=== PATIENT | female | born 1955 | race Caucasian/White ===

== ENCOUNTER 2017-06-09 14:40 | Observation (INO) | payer MEDICARE, OTHER ==
[2017-06-09] MEDS ORDERED: SODIUM CHLORIDE 0.9% 500 ML IV ONE (15:32)
--- NOTE | 2017-06-09 15:50 | ED ---
General Adult HPI - General Chief complaint: Weakness Stated complaint: SOB/Dizzy Time Seen by Provider: 06/09/17 14:45 Source: patient, RN notes reviewed Mode of arrival: wheelchair Limitations: no limitations - History of Present Illness Initial comments: This is a 62-year-old female presents emergency Department with a past medical history significant for anemia. Patient states she believes she is anemic again because she has a same symptom she normally gets. Patient states she's had this for many many years. Patient states her last transfusion was in March. Patient states she is certain dreaming fatigued and she has shortness of breath anytime she exerts herself. Patient states she's been sleeping over 20 hours a day for the last week. Patient states she also has generalized body aches. Patient denies any fever chills or cough per patient denies any chest pain. Patient denies shortness of breath at rest. Patient denies any abdominal pain patient denies nausea vomiting or diarrhea. Patient denies headache patient denies lightheadedness patient denies dizziness. Patient denies any black or bloody stools. Patient states she's never in the past been found to be bleeding when she's been anemic. - Related Data Home Medications Medication Instructions Recorded Confirmed Albuterol Inhaler [Ventolin Hfa 1 - 2 puff INHALATION Q6HR PRN 06/09/17 06/09/17 Inhaler] Cholecalciferol [Vitamin D3] 1,000 unit PO DAILY 06/09/17 06/09/17 DULoxetine HCL [Cymbalta] 60 mg PO DAILY 06/09/17 06/09/17 Fluticasone/Salmeterol [Advair 1 inhalation PO BID 06/09/17 06/09/17 250-50 Diskus] Levothyroxine Sodium [Synthroid] 150 mcg PO DAILY 06/09/17 06/09/17 Omeprazole [PriLOSEC] 20 mg PO AC-BRKFST 06/09/17 06/09/17 Pregabalin [Lyrica] 75 mg PO BID 06/09/17 06/09/17 Topiramate [Topamax] 50 mg PO DAILY 06/09/17 06/09/17 predniSONE 10 mg PO DIRECTED 06/09/17 06/09/17 Allergies Allergy/AdvReac Type Severity Reaction Status Date / Time No Known Allergies Allergy Verified 06/09/17 15:49 Review of Systems ROS Statement: Those systems with pertinent positive or pertinent negative responses have been documented in the HPI. ROS Other: All systems not noted in ROS Statement are negative. Past Medical History Past Medical History: COPD, Thyroid Disorder Additional Past Medical History / Comment(s): anemia History of Any Multi-Drug Resistant Organisms: None Reported Past Surgical History: Appendectomy, Hysterectomy, Tonsillectomy Past Psychological History: Bipolar, PTSD Smoking Status: Former smoker Past Alcohol Use History: None Reported Past Drug Use History: None Reported General Exam - General Exam Comments Initial Comments: GENERAL: Patient is well-developed and well-nourished. Patient is nontoxic and well- hydrated and is in no acute distress. ENT: Neck is soft and supple. No significant lymphadenopathy is noted. Oropharynx is clear. Moist mucous membranes. Neck has full range of motion without eliciting any pain. EYES: The sclera were anicteric and conjunctiva were pink and moist. Extraocular movements were intact and pupils were equal round and reactive to light. Eyelids were unremarkable. PULMONARY: Unlabored respirations. Good breath sounds bilaterally. No audible rales rhonchi or wheezing was noted. CARDIOVASCULAR: There is a regular rate and rhythm without any murmurs gallops or rubs. ABDOMEN: Soft and nontender with normal bowel sounds. No palpable organomegaly was noted. There is no palpable pulsatile mass. SKIN: Skin is pale NEUROLOGIC: Patient is alert and oriented x3. Cranial nerves II through XII are grossly intact. Motor and sensory are also intact. Normal speech, volume and content. Symmetrical smile. MUSCULOSKELETAL: Normal extremities with adequate strength and full range of motion. LYMPHATICS: No significant lymphadenopathy is noted PSYCHIATRIC: Normal psychiatric evaluation. Limitations: no limitations Course Vital Signs 06/09/17 06/09/17 14:51 15:57 Temperature 98.7 F Pulse Rate 114 H 84 Respiratory 18 18 Rate Blood Pressure 110/76 117/62 O2 Sat by Pulse 98 96 Oximetry Medical Decision Making - Medical Decision Making EKG shows normal sinus rhythm at 85 bpm MS interval 130 QRS is 84 Q-T intervals 342 QTC is 46 per patient's EKG shows no ST segment elevation or depression or T wave abnormalities are noted. - Lab Data Result diagrams: 06/09/17 15:30 06/09/17 15:30 Lab Results 0206/09/17 06/09/17 Range/Units 15:30 15:30 15:30 WBC 9.8 (3.8-10.6) k/uL RBC 3.90 (3.80-5.40) m/uL Hgb 9.6 L (11.4-16.0) gm/dL Hct 31.5 L (34.0-46.0) % MCV 80.7 (80.0-100.0) fL MCH 24.5 L (25.0-35.0) pg MCHC 30.4 L (31.0-37.0) g/dL RDW 18.2 H (11.5-15.5) % Plt Count 273 (150-450) k/uL Neutrophils % 77 % Lymphocytes % 14 % Monocytes % 5 % Eosinophils % 2 % Basophils % 0 % Neutrophils # 7.6 (1.3-7.7) k/uL Lymphocytes # 1.4 (1.0-4.8) k/uL Monocytes # 0.4 (0-1.0) k/uL Eosinophils # 0.2 (0-0.7) k/uL Basophils # 0.0 (0-0.2) k/uL Hypochromasia Marked Anisocytosis Slight Microcytosis Slight PT (9.0-12.0) sec INR (<1.2) APTT (22.0-30.0) sec Sodium (137-145) mmol/L Potassium (3.5-5.1) mmol/L Chloride (98-107) mmol/L Carbon Dioxide (22-30) mmol/L Anion Gap mmol/L BUN (7-17) mg/dL Creatinine (0.52-1.04) mg/dL Est GFR (MDRD) Af Amer (>60 ml/min/1.73 sqM) Est GFR (MDRD) Non-Af (>60 ml/min/1.73 sqM) Glucose (74-99) mg/dL Plasma Lactic Acid Parth (0.7-2.0) mmol/L Calcium (8.4-10.2) mg/dL Magnesium (1.6-2.3) mg/dL Total Bilirubin (0.2-1.3) mg/dL AST (14-36) U/L ALT (9-52) U/L Alkaline Phosphatase (38-126) U/L Total Creatine Kinase <20 L (30-135) U/L CK-MB (CK-2) <0.2 (0.0-2.4) ng/mL CK-MB (CK-2) Rel Index Troponin I <0.012 (0.000-0.034) ng/mL Total Protein (6.3-8.2) g/dL Albumin (3.5-5.0) g/dL Urine Color Urine Appearance (Clear) Urine pH (5.0-8.0) Ur Specific [place] (1.001-1.035) Urine Protein (Negative) Urine Glucose (UA) (Negative) Urine Ketones (Negative) Urine Blood (Negative) Urine Nitrite (Negative) Urine Bilirubin (Negative) Urine Urobilinogen (<2.0) mg/dL Ur Leukocyte Esterase (Negative) Blood Type A Positive Blood Type Recheck CABO Indicated Antibody Screen NEGATIVE Spec Expiration Date 06/12/2017 - 232906/09/17 06/09/17 06/09/17 Range/Units 15:30 15:30 15:30 WBC (3.8-10.6) k/uL RBC (3.80-5.40) m/uL Hgb (11.4-16.0) gm/dL Hct (34.0-46.0) % MCV (80.0-100.0) fL MCH (25.0-35.0) pg MCHC (31.0-37.0) g/dL RDW (11.5-15.5) % Plt Count (150-450) k/uL Neutrophils % % Lymphocytes % % Monocytes % % Eosinophils % % Basophils % % Neutrophils # (1.3-7.7) k/uL Lymphocytes # (1.0-4.8) k/uL Monocytes # (0-1.0) k/uL Eosinophils # (0-0.7) k/uL Basophils # (0-0.2) k/uL Hypochromasia Anisocytosis Microcytosis PT 9.5 (9.0-12.0) sec INR 1.0 (<1.2) APTT 23.6 (22.0-30.0) sec Sodium 139 (137-145) mmol/L Potassium 4.2 (3.5-5.1) mmol/L Chloride 107 (98-107) mmol/L Carbon Dioxide 19 L (22-30) mmol/L Anion Gap 13 mmol/L BUN 22 H (7-17) mg/dL Creatinine 0.75 (0.52-1.04) mg/dL Est GFR (MDRD) Af Amer >60 (>60 ml/min/1.73 sqM) Est GFR (MDRD) Non-Af >60 (>60 ml/min/1.73 sqM) Glucose 107 H (74-99) mg/dL Plasma Lactic Acid Parth 2.1 H* (0.7-2.0) mmol/L Calcium 9.3 (8.4-10.2) mg/dL Magnesium 2.0 (1.6-2.3) mg/dL Total Bilirubin 0.3 (0.2-1.3) mg/dL AST 23 (14-36) U/L ALT 32 (9-52) U/L Alkaline Phosphatase 113 (38-126) U/L Total Creatine Kinase (30-135) U/L CK-MB (CK-2) (0.0-2.4) ng/mL CK-MB (CK-2) Rel Index Troponin I (0.000-0.034) ng/mL Total Protein 7.1 (6.3-8.2) g/dL Albumin 3.9 (3.5-5.0) g/dL Urine Color Urine Appearance (Clear) Urine pH (5.0-8.0) Ur Specific [place] (1.001-1.035) Urine Protein (Negative) Urine Glucose (UA) (Negative) Urine Ketones (Negative) Urine Blood (Negative) Urine Nitrite (Negative) Urine Bilirubin (Negative) Urine Urobilinogen (<2.0) mg/dL Ur Leukocyte Esterase (Negative) Blood Type Blood Type Recheck Antibody Screen Spec Expiration Date 06/09/17 Range/Units 15:30 WBC (3.8-10.6) k/uL RBC (3.80-5.40) m/uL Hgb (11.4-16.0) gm/dL Hct (34.0-46.0) % MCV (80.0-100.0) fL MCH (25.0-35.0) pg MCHC (31.0-37.0) g/dL RDW (11.5-15.5) % Plt Count (150-450) k/uL Neutrophils % % Lymphocytes % % Monocytes % % Eosinophils % % Basophils % % Neutrophils # (1.3-7.7) k/uL Lymphocytes # (1.0-4.8) k/uL Monocytes # (0-1.0) k/uL Eosinophils # (0-0.7) k/uL Basophils # (0-0.2) k/uL Hypochromasia Anisocytosis Microcytosis PT (9.0-12.0) sec INR (<1.2) APTT (22.0-30.0) sec Sodium (137-145) mmol/L Potassium (3.5-5.1) mmol/L Chloride (98-107) mmol/L Carbon Dioxide (22-30) mmol/L Anion Gap mmol/L BUN (7-17) mg/dL Creatinine (0.52-1.04) mg/dL Est GFR (MDRD) Af Amer (>60 ml/min/1.73 sqM) Est GFR (MDRD) Non-Af (>60 ml/min/1.73 sqM) Glucose (74-99) mg/dL Plasma Lactic Acid Parth (0.7-2.0) mmol/L Calcium (8.4-10.2) mg/dL Magnesium (1.6-2.3) mg/dL Total Bilirubin (0.2-1.3) mg/dL AST (14-36) U/L ALT (9-52) U/L Alkaline Phosphatase (38-126) U/L Total Creatine Kinase (30-135) U/L CK-MB (CK-2) (0.0-2.4) ng/mL CK-MB (CK-2) Rel Index Troponin I (0.000-0.034) ng/mL Total Protein (6.3-8.2) g/dL Albumin (3.5-5.0) g/dL Urine Color Yellow Urine Appearance Clear (Clear) Urine pH 5.5 (5.0-8.0) Ur Specific [place] 1.017 (1.001-1.035) Urine Protein Negative (Negative) Urine Glucose (UA) Negative (Negative) Urine Ketones Negative (Negative) Urine Blood Negative (Negative) Urine Nitrite Negative (Negative) Urine Bilirubin Negative (Negative) Urine Urobilinogen <2.0 (<2.0) mg/dL Ur Leukocyte Esterase Negative (Negative) Blood Type Blood Type Recheck Antibody Screen Spec Expiration Date Disposition Clinical Impression: Fatigue, Anemia Disposition: ADMITTED IP TO THIS HOSP Referrals: Timothy Fountain MD [Primary Care Provider] - 1-2 days Time of Disposition: 17:04
[2017-06-09 16:00] LABS: Appearance,Urine Clear (Clear); Bilirubin,Urine Negative (Negative); Blood,Urine Negative (Negative); Color,Urine Yellow; Glucose,Urine (UA) Negative (Negative); Ketones,Urine Negative (Negative); Leukocyte Esterase,Urine Negative (Negative); PH, Urine 5.5 (5.0-8.0); Protein,Urine Negative (Negative); Specific Gravity,Urine 1.017 (1.001-1.035); Urobilinogen,Urine <2.0 mg/dL (<2.0)
[2017-06-09 16:02] LABS: Anisocytosis Slight; Basophils % (A) 0 %; Eosinophils # (A) 0.2 k/uL (0-0.7); Eosinophils % (A) 2 %; HCT 31.5 % (34.0-46.0); HGB 9.6 gm/dL (11.4-16.0); Hypochromasia Marked; Lymphocytes # (A) 1.4 k/uL (1.0-4.8); Lymphocytes % (A) 14 %; MCH 24.5 pg (25.0-35.0); MCHC 30.4 g/dL (31.0-37.0); MCV 80.7 fL (80.0-100.0); Mean Platelet Volume 7.4; Microcytosis Slight; Monocytes # (A) 0.4 k/uL (0-1.0); Monocytes % (A) 5 %; Neutrophils # (A) 7.6 k/uL (1.3-7.7); Neutrophils % (A) 77 %; Platelet Count 273 k/uL (150-450); RDW 18.2 % (11.5-15.5); WBC 9.8 k/uL (3.8-10.6)
[2017-06-09 16:10] LABS: Partial Thromboplastin Time 23.6 sec (22.0-30.0); Prothrombin Time 9.5 sec (9.0-12.0)
[2017-06-09 16:12] LABS: ALT 32 U/L (9-52); AST 23 U/L (14-36); Albumin 3.9 g/dL (3.5-5.0); Alkaline Phosphatase 113 U/L (38-126); Anion Gap 13 mmol/L; Blood Urea Nitrogen 22 mg/dL (7-17); Calcium 9.3 mg/dL (8.4-10.2); Carbon Dioxide 19 mmol/L (22-30); Chloride 107 mmol/L (98-107); Glucose 107 mg/dL (74-99); Potassium 4.2 mmol/L (3.5-5.1); Sodium 139 mmol/L (137-145); Total Bilirubin 0.3 mg/dL (0.2-1.3); Total Protein 7.1 g/dL (6.3-8.2)
--- NOTE | 2017-06-09 16:13 | XR ---
EXAMINATION TYPE: XR chest 2V DATE OF EXAM: 06/09/2017 COMPARISON: NONE HISTORY: Weakness and shortness of breath. TECHNIQUE: Frontal and lateral views of the chest are obtained. FINDINGS: There is chronic parenchymal change without suspicious focal air space opacity, pleural ef fusion, or pneumothorax seen. The cardiac silhouette size is upper limits of normal. Retrocardiac o pacity could reflect hiatal hernia. The osseous structures are demineralized. IMPRESSION: Chronic changes without acute pulmonary process.
[2017-06-09 16:18] LABS: Creatine Kinase <20 U/L (30-135)
[2017-06-09 16:31] LABS: Creatine Kinase MB <0.2 ng/mL (0.0-2.4); Troponin I <0.012 ng/mL (0.000-0.034)
[2017-06-09] MEDS ORDERED: SODIUM CHLORIDE 0.9% 1,000 ML IV ONE (17:05)
[2017-06-09] MEDS ORDERED: INFLUENZA VACCINE (6 MOS+) 60 MCG/0.5 ML SYRINGE IM ONE (21:36)
[2017-06-09] MEDS ORDERED: PNEUMOCOCCAL VACC-PNEUMOVAX 23 25 MCG/0.5 ML VIAL IM ONE (21:37)
[2017-06-09] MEDS: PANTOPRAZOLE 40 MG TABLET PO SCH (22:43)
[2017-06-09] MEDS: DULoxetine HCL 60 MG CAPSULE.DR PO SCH (22:43)
[2017-06-09] MEDS: ACETAMINOPHEN TAB 325 MG TAB PO PRN (22:44)
[2017-06-10 02:11] LABS: T4, Free (Free Thyroxine) 1.61 ng/dL (0.78-2.19)
[2017-06-10] MEDS: LEVOTHYROXINE 75 MCG TAB PO SCH (06:38)
[2017-06-10] MEDS: ACETAMINOPHEN TAB 325 MG TAB PO PRN ×2 (06:40→20:01)
[2017-06-10] MEDS: CHOLECALCIFEROL 1,000 UNIT TAB PO SCH (10:14)
[2017-06-10] MEDS: TOPIRAMATE 25 MG TAB PO SCH (10:14)
[2017-06-10] MEDS: PANTOPRAZOLE 40 MG TABLET PO SCH (10:14)
[2017-06-10] MEDS: PREGABALIN 75 MG CAP PO SCH ×2 (10:17→20:00)
--- NOTE | 2017-06-10 13:53 | P.GSCN ---
<Valentine Romero - Last Filed: 06/10/17 13:48> History of Present Illness Consult date: 06/10/17 History of present illness: A 62-year-old being seen by surgical service at the request of the attending for a surgical eval for possible GI bleed with anemia patient presented to the emergency room to be evaluated for persistent generalized weakness , fatigue shortness of breath onset for the past several weeks. Patient states that she was told she had anemia in March around presented to [facility] to be evaluated for the above symptoms. Patient stated her hemoglobin at that time was 6 was given a blood transfusion and discharged home with the plan the patient would need a colonoscopy in the outpatient setting patient states she is new to the area has moved here from [place] Patient states that she did have an EGD in [place] was told there were no acute findings. States that she has never had a colonoscopy. Denies any nausea vomiting denies any diarrhea or blood in stool. States her last bowel movement was yesterday and it was normal. States her chief complaint is her increased fatigue and inability to participate in ADLs due to the generalized body aches with fatigue.. Hemoglobin on admission was 9.6.. Patient also denies any unintentional weight loss. Patient states she normally walks 3-4 miles 3 times a week but over the last several weeks has not been able to do so due to fatigue decreased endurance and increased fatigue. Patient does have a past months ago history for bipolar, hypothyroid anemia, posttraumatic stress disorder. Past surgical history, appendectomy, hysterectomy, tonsillectomy Review of Systems Essentially unremarkable except as mentioned in the present illness Past Medical History Past Medical History: COPD, GERD/Reflux, Pneumonia, Thyroid Disorder Additional Past Medical History / Comment(s): 06/09/17-pt stated sleeping 18-20 hours per day for a week, sob when up, low grade fever at night, cardenas, general aches. other pmh:anemia, "was tesed for factor 5 d/t family hx- was neg", occ vertigo, blind rt eye since childhood, lt eye macular pucker.hiatal hernia, bipolar, ptsd. History of Any Multi-Drug Resistant Organisms: None Reported Past Surgical History: Appendectomy, Section, Hysterectomy, Tonsillectomy Additional Past Surgical History / Comment(s): rt radial nerve release, egd Past Anesthesia/Blood Transfusion Reactions: No Reported Reaction Smoking Status: Former smoker - Past Family History Mother Additional Family Medical History / Comment(s): at age 42 from blood clot. hx factor 5 Father Family Medical History: Congestive Heart Failure (CHF), CVA/TIA Brother(s) Additional Family Medical History / Comment(s): 3 brothers had factor 5 2 from strokes Medications and Allergies Home Medications Medication Instructions Recorded Confirmed Type Albuterol Inhaler [Ventolin Hfa 1 - 2 puff INHALATION Q6HR PRN 06/09/17 History Inhaler] Cholecalciferol [Vitamin D3] 1,000 unit PO DAILY 06/09/17 06/09/17 History DULoxetine HCL [Cymbalta] 60 mg PO DAILY 06/09/17 06/09/17 History Fluticasone/Salmeterol [Advair 1 inhalation PO BID 06/09/17 06/09/17 History 250-50 Diskus] Levothyroxine Sodium [Synthroid] 150 mcg PO DAILY 06/09/17 06/09/17 History Omeprazole [PriLOSEC] 20 mg PO AC-BRKFST 06/09/17 06/09/17 History Pregabalin [Lyrica] 75 mg PO BID 06/09/17 06/09/17 History Topiramate [Topamax] 50 mg PO DAILY 06/09/17 06/09/17 History predniSONE 10 mg PO DIRECTED 06/09/17 06/09/17 History Allergies Allergy/AdvReac Type Severity Reaction Status Date / Time No Known Allergies Allergy Verified 06/09/17 15:49 Surgical - Exam Vital Signs Temp Pulse Resp BP Pulse Ox 98.7 F 114 H 18 110/76 98 06/09/17 14:51 06/09/17 14:51 06/09/17 14:51 06/09/17 14:51 06/09/17 14:51 GENERAL APPEARANCE: 62-year-old female patient is alert, oriented x3, in no acute distress. VITAL SIGNS: Reviewed reviewed HEENT: Head is normocephalic and atraumatic.. The nares are patent. Oropharynx is clear without lesions. Blind in the right eye NECK: Supple without lymphadenopathy. Traches midline. HEART: S1, S2. Regular rate and rhythm. No murmur noted LUNGS: No crackles or wheezes are heard. Adequate air movement bilaterally ABDOMEN: Soft, nontender, nondistended with good bowel sounds. No peritoneal signs. No palpable organomegaly or masses. States no stool no reports the nausea vomiting EXTREMITIES: Normal skin color and turgor. No cyanosis, rash, ulceration, clubbing or edema. Radial pedal pulses are 2/4 bilaterally. NEUROLOGICAL: No focal deficits. Strength and sensation are grossly intact. Results - Labs 06/09/17 15:30 06/09/17 15:30 Abnormal Lab Results - Last 24 Hours (Table) 06/09/17 06/09/17 06/09/17 Range/Units 15:30 15:30 15:30 Hgb 9.6 L (11.4-16.0) gm/dL Hct 31.5 L (34.0-46.0) % MCH 24.5 L (25.0-35.0) pg MCHC 30.4 L (31.0-37.0) g/dL RDW 18.2 H (11.5-15.5) % Carbon Dioxide 19 L (22-30) mmol/L BUN 22 H (7-17) mg/dL Glucose 107 H (74-99) mg/dL Plasma Lactic Acid Parth (0.7-2.0) mmol/L Total Creatine Kinase <20 L (30-135) U/L TSH (0.465-4.680) mIU/L 06/09/17 06/09/17 Range/Units 15:30 15:30 Hgb (11.4-16.0) gm/dL Hct (34.0-46.0) % MCH (25.0-35.0) pg MCHC (31.0-37.0) g/dL RDW (11.5-15.5) % Carbon Dioxide (22-30) mmol/L BUN (7-17) mg/dL Glucose (74-99) mg/dL Plasma Lactic Acid Parth 2.1 H* (0.7-2.0) mmol/L Total Creatine Kinase (30-135) U/L TSH 0.406 L (0.465-4.680) mIU/L Diabetes panel 06/09/17 Range/Units 15:30 Sodium 139 (137-145) mmol/L Potassium 4.2 (3.5-5.1) mmol/L Chloride 107 (98-107) mmol/L Carbon Dioxide 19 L (22-30) mmol/L BUN 22 H (7-17) mg/dL Creatinine 0.75 (0.52-1.04) mg/dL Glucose 107 H (74-99) mg/dL Calcium 9.3 (8.4-10.2) mg/dL AST 23 (14-36) U/L ALT 32 (9-52) U/L Alkaline Phosphatase 113 (38-126) U/L Total Protein 7.1 (6.3-8.2) g/dL Albumin 3.9 (3.5-5.0) g/dL Thyroid panel 06/09/17 Range/Units 15:30 TSH 0.406 L (0.465-4.680) mIU/L Calcium panel 06/09/17 Range/Units 15:30 Calcium 9.3 (8.4-10.2) mg/dL Albumin 3.9 (3.5-5.0) g/dL Pituitary panel 06/09/17 06/09/17 Range/Units 15:30 15:30 Sodium 139 (137-145) mmol/L Potassium 4.2 (3.5-5.1) mmol/L Chloride 107 (98-107) mmol/L Carbon Dioxide 19 L (22-30) mmol/L BUN 22 H (7-17) mg/dL Creatinine 0.75 (0.52-1.04) mg/dL Glucose 107 H (74-99) mg/dL Calcium 9.3 (8.4-10.2) mg/dL TSH 0.406 L (0.465-4.680) mIU/L Adrenal panel 06/09/17 Range/Units 15:30 Sodium 139 (137-145) mmol/L Potassium 4.2 (3.5-5.1) mmol/L Chloride 107 (98-107) mmol/L Carbon Dioxide 19 L (22-30) mmol/L BUN 22 H (7-17) mg/dL Creatinine 0.75 (0.52-1.04) mg/dL Glucose 107 H (74-99) mg/dL Calcium 9.3 (8.4-10.2) mg/dL Total Bilirubin 0.3 (0.2-1.3) mg/dL AST 23 (14-36) U/L ALT 32 (9-52) U/L Alkaline Phosphatase 113 (38-126) U/L Total Protein 7.1 (6.3-8.2) g/dL Albumin 3.9 (3.5-5.0) g/dL Assessment and Plan Assessment: Impression Present on admission fatigue deconditioned likely due to significant anemia hemoglobin 9.6 History of chronic anemia Bipolar disorder Hypothyroid on supplements with a low TSH with a normal free T4 Episode of symptomatic anemia with 1 unit of packed red blood cells in March 2017 COPD with no evidence of an acute exacerbation Plan Clear liquid diet Repeat labs in the morning Would benefit from a colonoscopy timing to be determined No evidence of an acute surgical abdomen at this time Further surgical recommendations pending will follow with you Surgical consultation dictated for dr larson The above impression and plan of care have been discussed and directed by signing physician. Valentine Romero nurse practitioner acting as scribe for signing physician. <Sheila Virgen - Last Filed: 06/10/17 16:38> Surgical - Exam Osteopathic Statement: *. No significant issues noted on an osteopathic structural exam other than those noted in the History and Physical/Consult. Vital Signs Temp Pulse Resp BP Pulse Ox 98.7 F 114 H 18 110/76 98 06/09/17 14:51 06/09/17 14:51 06/09/17 14:51 06/09/17 14:51 06/09/17 14:51 Results - Labs 06/09/17 15:30 06/09/17 15:30 Abnormal Lab Results - Last 24 Hours (Table) 06/09/17 06/09/17 Range/Units 15:30 15:30 Plasma Lactic Acid Parth 2.1 H* (0.7-2.0) mmol/L TSH 0.406 L (0.465-4.680) mIU/L Thyroid panel 06/09/17 Range/Units 15:30 TSH 0.406 L (0.465-4.680) mIU/L Pituitary panel 06/09/17 Range/Units 15:30 TSH 0.406 L (0.465-4.680) mIU/L Assessment and Plan Assessment: Agree with the above plan. Discussed the case with Dr. Mcdonald and due to the patient's history of poor compliance and continued anemia, we will plan for colonoscopy during this admission. We will begin a colonoscopy prep today with a continued clear liquid diet. She will be nothing by mouth after midnight and colonoscopy will be performed.
--- NOTE | 2017-06-10 15:31 | P.HPIM ---
History of Present Illness H&P Date: 06/10/17 Chief Complaint: Generalized weakness and fatigue This is a 62-year-old female who presented to the emergency department complaining of fatigue and shortness of breath. She was also complaining of generalized weakness. The patient states she has been very sleepy over the last week. She has had body aches and pain. She denies fevers and chills. She denies cough, sputum production, chest pain. The patient states she has had this in the past and it is usually because she is anemic. The patient apparently has a history of anemia in the past. She states that she was transfused March. She did not follow up for a colonoscopy that she was supposed to have. She states that she had issues getting a ride to the hospital. Review of Systems All systems: negative Past Medical History Past Medical History: COPD, GERD/Reflux, Pneumonia, Thyroid Disorder Additional Past Medical History / Comment(s): 06/09/17-pt stated sleeping 18-20 hours per day for a week, sob when up, low grade fever at night, cardenas, general aches. other pmh:anemia, "was tesed for factor 5 d/t family hx- was neg", occ vertigo, blind rt eye since childhood, lt eye macular pucker.hiatal hernia, bipolar, ptsd. History of Any Multi-Drug Resistant Organisms: None Reported Past Surgical History: Appendectomy, Section, Hysterectomy, Tonsillectomy Additional Past Surgical History / Comment(s): rt radial nerve release, egd Past Anesthesia/Blood Transfusion Reactions: No Reported Reaction Smoking Status: Former smoker - Past Family History Mother Additional Family Medical History / Comment(s): at age 42 from blood clot. hx factor 5 Father Family Medical History: Congestive Heart Failure (CHF), CVA/TIA Brother(s) Additional Family Medical History / Comment(s): 3 brothers had factor 5 2 from strokes Medications and Allergies Home Medications Medication Instructions Recorded Confirmed Type Albuterol Inhaler [Ventolin Hfa 1 - 2 puff INHALATION Q6HR PRN 06/09/17 History Inhaler] Cholecalciferol [Vitamin D3] 1,000 unit PO DAILY 06/09/17 06/09/17 History DULoxetine HCL [Cymbalta] 60 mg PO DAILY 06/09/17 06/09/17 History Fluticasone/Salmeterol [Advair 1 inhalation PO BID 06/09/17 06/09/17 History 250-50 Diskus] Levothyroxine Sodium [Synthroid] 150 mcg PO DAILY 06/09/17 06/09/17 History Omeprazole [PriLOSEC] 20 mg PO AC-BRKFST 06/09/17 06/09/17 History Pregabalin [Lyrica] 75 mg PO BID 06/09/17 06/09/17 History Topiramate [Topamax] 50 mg PO DAILY 06/09/17 06/09/17 History predniSONE 10 mg PO DIRECTED 06/09/17 06/09/17 History Allergies Allergy/AdvReac Type Severity Reaction Status Date / Time No Known Allergies Allergy Verified 06/09/17 15:49 Physical Exam Osteopathic Statement: *. No significant issues noted on an osteopathic structural exam other than those noted in the History and Physical/Consult. Vitals: Vital Signs Temp Pulse Pulse Resp BP BP Pulse Ox 06/10/17 15:00 99.2 F 68 16 111/59 99 06/10/17 10:20 76 16 06/10/17 08:13 100 06/10/17 07:00 97.6 F 76 16 98/65 100 06/09/17 23:00 99.0 F 102 H 16 107/67 99 06/09/17 18:41 98.7 F 74 16 115/77 100 06/09/17 17:56 98.1 F 78 18 109/59 96 06/09/17 15:57 84 18 117/62 96 Intake and Output 06/10/17 06/10/17 06/10/17 06:59 14:59 22:59 Intake Total 250 Balance 250 Intake: Oral 250 Other: # Voids 1 2 Gen.: Patient is alert and oriented 3, no acute distress Cardiovascular: Regular rate/S2 Lungs: Diminished breath sounds bilaterally otherwise clear Abdomen: Soft nontender nondistended positive bowel sounds Extremities: No edema Results CBC & Chem 7: 06/09/17 15:30 06/09/17 15:30 Labs: Abnormal Lab Results - Last 24 Hours (Table) 06/09/17 06/09/17 06/09/17 Range/Units 15:30 15:30 15:30 Hgb 9.6 L (11.4-16.0) gm/dL Hct 31.5 L (34.0-46.0) % MCH 24.5 L (25.0-35.0) pg MCHC 30.4 L (31.0-37.0) g/dL RDW 18.2 H (11.5-15.5) % Carbon Dioxide 19 L (22-30) mmol/L BUN 22 H (7-17) mg/dL Glucose 107 H (74-99) mg/dL Plasma Lactic Acid Parth (0.7-2.0) mmol/L Total Creatine Kinase <20 L (30-135) U/L TSH (0.465-4.680) mIU/L 06/09/17 06/09/17 Range/Units 15:30 15:30 Hgb (11.4-16.0) gm/dL Hct (34.0-46.0) % MCH (25.0-35.0) pg MCHC (31.0-37.0) g/dL RDW (11.5-15.5) % Carbon Dioxide (22-30) mmol/L BUN (7-17) mg/dL Glucose (74-99) mg/dL Plasma Lactic Acid Parth 2.1 H* (0.7-2.0) mmol/L Total Creatine Kinase (30-135) U/L TSH 0.406 L (0.465-4.680) mIU/L Chest x-ray: report reviewed, image reviewed Thrombosis Risk Factor Assmnt - DVT/VTE Prophylaxis DVT/VTE Prophylaxis: Mechanical Prophylaxis ordered - Choose All That Apply Any of the Below Risk Factors Present?: Yes Each Factor Represents 1 point: Abnormal pulmonary function (COPD) Other Risk Factors: Yes Each Risk Factor Represents 2 Points: Age 61-74 years Each Risk Factor Represents 3 Points: Family history of DVT/PE Other congenital or acquired thrombophilia - If yes, enter type in comment: No Thrombosis Risk Factor Assessment Total Risk Factor Score: 6 Thrombosis Risk Factor Assessment Level: High Risk Assessment and Plan Assessment: Symptomatic anemia History of chronic anemia Bipolar disorder Elevated lactic acid Hypothyroidism COPD, not acutely exacerbated Generalized weakness History of GERD History of tobacco abuse Consult surgery, case is discussed with surgical team, plan for colonoscopy tomorrow due to patient's poor compliance and difficulties with outpatient follow-up Continue patient's home medications Monitor for signs and symptoms of bleeding GI and DVT prophylaxis: SCDs and Protonix Bowel prep tonight IVF hydration Continued smoking cessation recommended
[2017-06-10] MEDS ORDERED: PEG 3350-NA SULF,BICARB,CL/KCL 4,000 ML BOTTLE PO ONE (16:00)
[2017-06-10 19:30] LABS: Iron Saturation 3.99 (12.00-45.00)
[2017-06-10] MEDS: DULoxetine HCL 60 MG CAPSULE.DR PO SCH (20:00)
[2017-06-10] MEDS: KETOROLAC 30 MG/ML 1 ML VIAL IVP PRN (21:29)
[2017-06-11] MEDS: LEVOTHYROXINE 75 MCG TAB PO SCH (06:29)
[2017-06-11] MEDS: KETOROLAC 30 MG/ML 1 ML VIAL IVP PRN ×3 (06:29→21:21)
[2017-06-11] MEDS: CHOLECALCIFEROL 1,000 UNIT TAB PO SCH (07:54)
[2017-06-11] MEDS: TOPIRAMATE 25 MG TAB PO SCH (07:54)
[2017-06-11] MEDS: PANTOPRAZOLE 40 MG TABLET PO SCH (07:54)
[2017-06-11] MEDS: PREGABALIN 75 MG CAP PO SCH ×2 (07:54→21:09)
[2017-06-11 10:28] LABS: Anisocytosis Slight; Basophils % (A) 0 %; Eosinophils # (A) 0.1 k/uL (0-0.7); Eosinophils % (A) 2 %; HCT 29.7 % (34.0-46.0); HGB 8.5 gm/dL (11.4-16.0); Hypochromasia Marked; Lymphocytes # (A) 1.3 k/uL (1.0-4.8); Lymphocytes % (A) 19 %; MCH 23.7 pg (25.0-35.0); MCHC 28.7 g/dL (31.0-37.0); MCV 82.8 fL (80.0-100.0); Mean Platelet Volume 8.2; Microcytosis Slight; Monocytes # (A) 0.3 k/uL (0-1.0); Monocytes % (A) 5 %; Neutrophils # (A) 4.8 k/uL (1.3-7.7); Neutrophils % (A) 72 %; Platelet Count 191 k/uL (150-450); RBC 3.58 m/uL (3.80-5.40); RDW 18.1 % (11.5-15.5); WBC 6.8 k/uL (3.8-10.6)
[2017-06-11 10:43] LABS: ALT 33 U/L (9-52); AST 21 U/L (14-36); Albumin 3.2 g/dL (3.5-5.0); Alkaline Phosphatase 111 U/L (38-126); Anion Gap 8 mmol/L; Blood Urea Nitrogen 19 mg/dL (7-17); Calcium 8.8 mg/dL (8.4-10.2); Carbon Dioxide 22 mmol/L (22-30); Chloride 111 mmol/L (98-107); Glucose 101 mg/dL (74-99); Potassium 3.9 mmol/L (3.5-5.1); Sodium 141 mmol/L (137-145); Total Bilirubin 0.2 mg/dL (0.2-1.3); Total Protein 5.9 g/dL (6.3-8.2)
[2017-06-11] MEDS ORDERED: PROPOFOL 10 MG/ML 20 ML VIAL IV ONE (13:15)
[2017-06-11] MEDS ORDERED: LIDOCAINE 1% INJ 10MG/ML (20 ML MDV) ONE (13:15)
[2017-06-11] MEDS ORDERED: IV FLUID CONTINUATION 1,000 ML IV ONE (13:25)
--- NOTE | 2017-06-11 14:30 | P.OP ---
Date of Procedure: 06/11/17 Preoperative Diagnosis: Anemia Postoperative Diagnosis: Colon polypx2 diverticulosis Procedure(s) Performed: Colonoscopy with polypectomy x 2 Anesthesia: MAC Surgeon: Larry Corbin Pathology: other (Colon polyp) Condition: stable Disposition: floor Indications for Procedure: this 62-year-old female who presented with anemia and was never had a colonoscopy before. She was described risk benefits and alternatives colonoscopy including risks of bleeding infection damage surrounding tissue further operation perforation she states she understood agreed and consented Operative Findings: Hepatic flexure polyp, descending colon polyps small, diverticulosis Description of Procedure: Patient was brought into the Endo suite placed in the left lateral decubitus position underwent sedation per department of anesthesia, the scope was then passed through the rectum to the cecum with ease and slowly withdrawn being sure to visualize all brush on the way out. There is a pedunculated polyp at the hepatic flexure this was snared with a hot snare. And sent to pathology. There was a small polyp at the descending colon this was snared with a hot snare however the polyp was not retrieved. The patient also had quite poor prep there was multiple peaches and food particles and loose watery stool. There was also diverticuli noted in the sigmoid colon. I did not see any tumor mass that I could attribute her anemia too. There is no other abnormalities noted. Patient tolerated procedure well no apparent complications
[2017-06-11] MEDS: DULoxetine HCL 60 MG CAPSULE.DR PO SCH (21:07)
[2017-06-12] MEDS: KETOROLAC 30 MG/ML 1 ML VIAL IVP PRN ×3 (03:46→16:46)
[2017-06-12] MEDS: LEVOTHYROXINE 75 MCG TAB PO SCH (06:14)
[2017-06-12] MEDS: CHOLECALCIFEROL 1,000 UNIT TAB PO SCH (08:18)
[2017-06-12] MEDS: TOPIRAMATE 25 MG TAB PO SCH (08:18)
[2017-06-12] MEDS: PANTOPRAZOLE 40 MG TABLET PO SCH (08:18)
[2017-06-12] MEDS: PREGABALIN 75 MG CAP PO SCH (08:18)
--- NOTE | 2017-06-12 13:22 | P.PN ---
Subjective Progress Note Date: 06/12/17 Principal diagnosis: Anemia Anika is doing well status post colonoscopy. Tolerating diet without abdominal pain. Objective - Vital Signs Vital signs: Vital Signs Temp 98.3 F 06/12/17 07:00 Pulse 97 06/12/17 07:00 Resp 16 06/12/17 07:00 BP 98/62 06/12/17 07:00 Pulse Ox 98 06/12/17 07:00 Intake & Output 06/11/17 06/12/17 06/12/17 18:59 06:59 18:59 Intake Total 200 Balance 200 Intake: IV 200 Other: # Voids 1 2 # Bowel Movements 0 - Constitutional General appearance: Present: cooperative - Respiratory Details: Nonlabored - Cardiovascular Rhythm: regular - Gastrointestinal Gastrointestinal Comment(s): Soft nontender nondistended - Psychiatric Psychiatric: Present: A&O x's 3 - Labs CBC & Chem 7: 06/11/17 10:04 06/11/17 10:04 Assessment and Plan Assessment: Anemia Plan: Patient had several small polyps that were removed on the colonoscopy however these were not large enough in size to attribute her anemia to. We'll follow up with pathology on polyps patient will likely need a repeat colonoscopy in 3 years. No acute surgical intervention planned at this time. We'll defer to medicine for further workup.
[2017-06-12 14:57] LABS: Anisocytosis Slight; Basophils # (A) 0.1 k/uL (0-0.2); Basophils % (A) 1 %; Eosinophils # (A) 0.2 k/uL (0-0.7); Eosinophils % (A) 2 %; HCT 28.8 % (34.0-46.0); HGB 8.2 gm/dL (11.4-16.0); Hypochromasia Marked; Lymphocytes # (A) 2.1 k/uL (1.0-4.8); Lymphocytes % (A) 22 %; MCH 23.1 pg (25.0-35.0); MCHC 28.5 g/dL (31.0-37.0); MCV 81.1 fL (80.0-100.0); Mean Platelet Volume 9.2; Microcytosis Slight; Monocytes # (A) 0.4 k/uL (0-1.0); Monocytes % (A) 4 %; Neutrophils # (A) 6.4 k/uL (1.3-7.7); Neutrophils % (A) 69 %; Platelet Count 183 k/uL (150-450); Poikilocytosis Slight; RBC 3.55 m/uL (3.80-5.40); WBC 9.2 k/uL (3.8-10.6)
[2017-06-12 15:10] VITALS: BP 112/68; PULSE 113; RESP 18; TEMP 98.5
--- NOTE | 2017-06-12 15:17 | PN ---
PROGRESS NOTE DATE OF SERVICE: 06/12/2017. She has some shortness of breath, back pain and headache. PHYSICAL EXAMINATION: Blood pressure is 98/62, respiratory rate is 16, pulse rate 97, temperature 98.3, O2 saturation on room is 94%. HEENT: Unremarkable. Chest reveals occasional wheeze. Cardiovascular system: S1, S2. ABDOMEN: Soft. There is no edema. Hemoglobin is ordered and has come down to 8.5, white count of 6.8, sodium 141, potassium 3.9, chloride 111, bicarb 22, BUN 19, creatinine 0.83. IMPRESSION: At this time. 1. Gastrointestinal bleed and anemia. 2. Diverticulosis. 3. Back pain. Continue symptomatic care. Follow her hemoglobin closely. Increase her activity level. Because of her prominent weakness, would consider inpatient rehab on her. Depending on how she does, we shall make further changes to her care. MMODL / IJN: [id number] /
[2017-06-12] MEDS: ACETAMINOPHEN TAB 325 MG TAB PO PRN (16:46)
== END 2017-06-12 19:39 | disposition home or self-care (01) ==
LOC: EC 14:40 → 4MS4W 17:05
PROVIDERS: ADMIT Internal Medicine Pulmonary Disease; ATTEND Internal Medicine Pulmonary Disease
DX: D64.9 Anemia, unspecified (principal); D12.3 Benign neoplasm of transverse colon; J44.9 Chronic obstructive pulmonary disease, unspecified; F31.9 Bipolar disorder, unspecified; F43.10 Post-traumatic stress disorder, unspecified; K21.9 Gastro-esophageal reflux disease without esophagitis; H54.61 Unqualified visual loss, right eye, normal vision left eye; E03.9 Hypothyroidism, unspecified; R52 Pain, unspecified; M54.9 Dorsalgia, unspecified; R74.0 Nonspecific elevation of levels of transaminase and lactic acid dehydrogenase [LDH]; K57.90 Diverticulosis of intestine, part unspecified, without perforation or abscess without bleeding; K92.2 Gastrointestinal hemorrhage, unspecified; Z79.899 Other long term (current) drug therapy; Z79.51 Long term (current) use of inhaled steroids; Z87.891 Personal history of nicotine dependence; Z87.01 Personal history of pneumonia (recurrent); Z82.3 Family history of stroke; Z82.49 Family history of ischemic heart disease and other diseases of the circulatory system; Z83.2 Family history of diseases of the blood and blood-forming organs and certain disorders involving the immune mechanism; Z23 Encounter for immunization; Z91.19 Patient's noncompliance with other medical treatment and regimen
CPT/HCPCS: 99285; 96376; 96361 ×2; 96374; 36415; 94760 ×2; 93005; 86900; 86901; 84439; 88305; 80053 ×2; 84443; 82728; 82550; 82553; 83540; 83550; 83605; 83735; 84484; 85025 ×3; 85610; 85730; 86850; 86870; 86880; 81003; 71046; 90732; 90686; 45385; G0378 ×4; G0008; G0009; J2001; J1885 ×3; J2704

== ENCOUNTER → 2017-09-08 | Outpatient (CLI) | payer MEDICARE, OTHER ==
--- NOTE | 2017-09-08 18:59 | CT ---
EXAMINATION TYPE: CT cervical spine w con DATE OF EXAM: 09/08/2017 COMPARISON: NONE HISTORY: Cervical pain, no injury CT DLP: 1195 mGycm Automated exposure control for dose reduction was used. CONTRAST: Performed with IV Contrast, patient injected with 100 mL of Isovue 300. FINDINGS: Axial images were obtained from the level of the skull base to T1 vertebra with intravenous contrast. Cervical vertebra have fairly normal spacing and alignment. Posterior elements appear intact. Facet j oints are intact. There is mild hypertrophic facet arthropathy in the mid cervical spine. There is no compression fracture. There is no evidence of spinal stenosis. I see no significant disc bulging or herniation. The skull base is intact. I see no pathologic enhancement. There is no cervical paraspina l mass. IMPRESSION: MINIMAL DEGENERATIVE CHANGES IN THE FACET JOINTS IN THE MID CERVICAL SPINE. NO FRACTURE. NO SPINAL ST ENOSIS.
--- NOTE | 2017-09-08 19:19 | CT ---
EXAMINATION TYPE: CT shoulder RT w con DATE OF EXAM: 09/08/2017 COMPARISON: NONE HISTORY: Right shoulder pain CT DLP: mGycm Automated exposure control for dose reduction was used. CONTRAST: Performed , patient injected with contrast shared with c-spine mL of Isovue 300. FINDINGS: There is moderate spurring at the glenohumeral joint. There is narrowing of the glenohumeral joint sp hilario. The scapula appears intact. I see no pathologic enhancement. There is minor spurring at the AC j oint. There is no significant subacromial joint space narrowing. I see no focal bone destruction. The re is no evidence of a soft tissue mass. The right upper ribs appear intact. On the axial images ther e is a very slight posterior subluxation of the humeral head. IMPRESSION: OSTEOARTHRITIC CHANGES AND MILD POSTERIOR SUBLUXATION OF THE HUMERAL HEAD. THIS IS CONSISTENT WITH SO ME JOINT LAXITY. NO FRACTURE.
--- NOTE | 2017-09-08 19:21 | CT ---
EXAMINATION TYPE: CT shoulder LT w con DATE OF EXAM: 09/08/2017 COMPARISON: NONE HISTORY: Left shoulder pain CT DLP: mGycm Automated exposure control for dose reduction was used. CONTRAST: Performed , patient injected with contrast from c-spine mL of Isovue 300. FINDINGS: There is spurring at the glenohumeral joint space with joint space narrowing. I see no fracture nor d islocation. There is no subluxation. There is slight narrowing of the subacromial joint space. The sc apula appears intact. There is no evidence of a soft tissue mass. There is no pathologic enhancement. The left ribs appear intact. The AC joint is intact. IMPRESSION: MILD TO MODERATE OSTEOARTHRITIS IN THE GLENOHUMERAL JOINT. NO FRACTURE. MILD SUBACROMIAL JOINT SPACE NARROWING.
== END | disposition home or self-care (01) ==
LOC: RADCTMAIN 15:45
PROVIDERS: ATTEND Family Medicine
DX: M47.22 Other spondylosis with radiculopathy, cervical region (principal); M19.012 Primary osteoarthritis, left shoulder; M19.011 Primary osteoarthritis, right shoulder; S43.021A Posterior subluxation of right humerus, initial encounter
CPT/HCPCS: 72126; 73201 ×2; Q9967

== ENCOUNTER 2017-09-13 10:52 | Day surgery (SDC) | payer MEDICARE, OTHER ==
[2017-09-08 16:02] VITALS: BMI 25.0
[~2017-09-13 10:52] MED LIST: ALPRAZolam 0.25 MG TAB PO PRN; ALPRAZolam 0.5 MG TAB PO PRN; ASPIRIN 325 MG TAB PO STA; ATORVASTATIN 80 MG TAB PO STA; NITROGLYCERIN SL TABS 0.4 MG TAB SUBLINGUAL PRN; SODIUM CHLORIDE 0.9% 1,000 ML in EMPTY BAG 1 BAG IV ONE
[2017-09-13 11:39] LABS: Anisocytosis Slight; Basophils % (A) 1 %; Eosinophils # (A) 0.3 k/uL (0-0.7); Eosinophils % (A) 4 %; HCT 34.4 % (34.0-46.0); HGB 10.9 gm/dL (11.4-16.0); Hypochromasia Slight; Lymphocytes # (A) 2.3 k/uL (1.0-4.8); Lymphocytes % (A) 30 %; MCH 26.6 pg (25.0-35.0); MCHC 31.6 g/dL (31.0-37.0); MCV 84.1 fL (80.0-100.0); Mean Platelet Volume 7.5; Microcytosis Slight; Monocytes # (A) 0.3 k/uL (0-1.0); Monocytes % (A) 4 %; Neutrophils # (A) 4.5 k/uL (1.3-7.7); Neutrophils % (A) 58 %; Platelet Count 291 k/uL (150-450); RBC 4.09 m/uL (3.80-5.40); RDW 16.5 % (11.5-15.5); WBC 7.7 k/uL (3.8-10.6)
[2017-09-13] MEDS ORDERED: MIDAZOLAM 2 MG/2 ML VIAL ONE ×2 (11:52→12:25)
[2017-09-13] MEDS ORDERED: HEPARIN SODIUM 1,000 UN/ML (10ML VL) ONE (11:52)
[2017-09-13] MEDS ORDERED: LIDOCAINE 2% INJ 20 MG/ML (20 ML MDV) ONE (11:52)
[2017-09-13] MEDS ORDERED: VERAPAMIL 2.5 MG/ML 2 ML AMP ONE (11:58)
[2017-09-13] MEDS: MIDAZOLAM 2 MG/2 ML VIAL IV ONE ×2 (12:08→12:15)
[2017-09-13] MEDS ORDERED: LIDOCAINE 2% INJ 20 MG/ML SQ ONE (12:11)
[2017-09-13] MEDS: VERAPAMIL SYRINGE (5 MG/10 ML) INTRAARTER ONE ×2 (12:13→12:45)
[2017-09-13] MEDS: NITROGLYCERIN 1000MCG/10ML SYRINGE INTRACORON ONE ×2 (12:17→12:40)
[2017-09-13] MEDS ORDERED: fentaNYL (PF) 50 MCG/ML 2 ML AMP ONE (12:18)
[2017-09-13] MEDS: fentaNYL (PF) 50 MCG/ML 2 ML AMP IV ONE ×2 (12:19→12:51)
[2017-09-13] MEDS ORDERED: BIVALIRUDIN BOLUS 250 MG/50 ML IV ONE (12:22)
[2017-09-13] MEDS ORDERED: BIVALIRUDIN 250 MG in SODIUM CHLORIDE 0.9% 50 ML IV ONE (12:23)
[2017-09-13] MEDS ORDERED: MIDAZOLAM 2 MG/2 ML VIAL IV ONE (12:27)
[2017-09-13] MEDS ORDERED: CLOPIDOGREL 75 MG TAB PO ONE (12:44)
[2017-09-13] MEDS ORDERED: CLOPIDOGREL 75 MG TAB ONE (12:45)
[2017-09-13] MEDS ORDERED: CYCLOBENZAPRINE 10 MG TAB PO PRN (12:49)
[2017-09-13] MEDS ORDERED: IOPAMIDOL-370 125ML BTL INJ ONE (12:49)
[2017-09-13] MEDS ORDERED: METOPROLOL TARTRATE 12.5 MG TAB PO PRN (12:49)
[2017-09-13] MEDS ORDERED: NITROGLYCERIN SL TABS 0.4 MG TAB SUBLINGUAL PRN (12:50)
[2017-09-13] MEDS ORDERED: ZOLPIDEM 5 MG TAB PO PRN (12:50)
[2017-09-13] MEDS ORDERED: MAG HYDROX/AL HYDROX/SIMETH 30 ML CUP PO PRN (12:50)
[2017-09-13] MEDS ORDERED: ATROPINE SULFATE 0.1 MG/ML 10ML SYRINGE IV PRN (12:50)
[2017-09-13] MEDS ORDERED: RX INFO: IV CONTRAST WAS GIVEN 1 EACH MISC MISCELLANE PRN (12:50)
[2017-09-13] MEDS ORDERED: SODIUM CHLORIDE 0.9% 1,000 ML IV SCH (13:00)
[2017-09-13 13:18] LABS: Anion Gap 11 mmol/L; Blood Urea Nitrogen 17 mg/dL (7-17); Calcium 8.4 mg/dL (8.4-10.2); Carbon Dioxide 19 mmol/L (22-30); Chloride 111 mmol/L (98-107); Glucose 88 mg/dL (74-99); Potassium 3.5 mmol/L (3.5-5.1); Sodium 141 mmol/L (137-145)
--- NOTE | 2017-09-13 15:06 | PTCA ---
PERCUTANEOUSTRANS CORORONARY ANGIOGRAPHY DATE OF SERVICE: September 13, 2017 PERFORMING PHYSICIAN: Luis M Coombs MD, vocational counselor. PROCEDURE PERFORMED: Successful stenting of the mid left anterior descending artery using 3.0 x 15 mm Xience SEB with good angiographic results. INDICATION: This is a pleasant 62-year-old female patient who was having chest discomfort and she underwent a heart catheterization recently and that showed severe disease involving the mid LAD and severe disease involving the proximal portion of ramus intermedius coronary artery. She was brought today to undergo stenting of the LAD. APPROACH: Right radial artery. COMPLICATION: None. LEVEL OF SEDATION: Moderate with sedation length of 36 minutes. PROCEDURE DESCRIPTION: After obtaining an informed consent, the patient was brought to the cardiac chemical laboratory technician. The right radial artery was cannulated using micropuncture technique, the micropuncture wire passed easily and then I placed a 6-[place] sheath in the right radial artery. I gave the patient 2 mg of verapamil IA before I started anticoagulation using Angiomax. Subsequently I did engage the left main using JL 3.5 guiding catheter. A whisper wire was used to wire the LAD. I did balloon angioplasty of the LAD using 2.5 x 12 mm balloon. Then I did wire the LAD using a janessa wire with the run-through wire because I was concerned about the stent. I was getting the stent to the mid LAD in view of the calcified tortuous proximal LAD. I did wire the LAD using a janessa wire which was a whisper run-through wire. After that, I did deploy a 3.0 x 15 mm Xience SEB in the mid LAD where the stent was positioned under fluoroscopy guidance and deployed under its nominal pressure, which was about which was deployed under 18 atmospheres for 20 seconds. The following angiogram showed good angiographic results. At that point, the procedure was completed without any complication. The stent was positioned under fluoroscopy guidance and janessa wire was pulled before the stent was deployed. The procedure was completed without any complication. POST POSTPROCEDURE MANAGEMENT: 1. Dual anti-platelet therapy. 2. Risk factors modifications. 3. Follow up with the patient. MMEULA / LUIZN: [id number] /
--- NOTE | 2017-09-13 15:21 | LTR ---
DATE OF SERVICE: September 13, 2017. RE: Anika Bob Dear Dr. Fountain; Ms. Anika Bob underwent successful stenting of the mid LAD with good angiographic results and without any complication. Thank you for allowing me to participate in her care and please do not hesitate to call if you have any question or concern. Sincerely, MD LEANDRO GarciaL / LUIZN: [id number] /
[2017-09-13] MEDS ORDERED: PANTOPRAZOLE 40 MG TABLET PO SCH (17:30)
[2017-09-13] MEDS: SYMBICORT 80-4.5 MCG INHALER INHALATION SCH (19:06)
[2017-09-13] MEDS ORDERED: ASPIRIN 81 MG PO SCH (21:00)
[2017-09-13] MEDS ORDERED: DULoxetine HCL 60 MG CAPSULE.DR PO SCH (21:00)
[2017-09-13] MEDS ORDERED: METOPROLOL TARTRATE 12.5 MG TAB PO SCH (21:00)
[2017-09-13] MEDS ORDERED: DIAZEPAM 2 MG TAB PO SCH (21:00)
[2017-09-13] MEDS ORDERED: ATORVASTATIN 80 MG TAB PO SCH (23:00)
[2017-09-14 06:21] LABS: Anisocytosis Slight; HCT 37.1 % (34.0-46.0); HGB 11.7 gm/dL (11.4-16.0); Hypochromasia Slight; MCH 26.7 pg (25.0-35.0); MCHC 31.5 g/dL (31.0-37.0); MCV 84.9 fL (80.0-100.0); Mean Platelet Volume 8.2; Platelet Count 189 k/uL (150-450); RBC 4.37 m/uL (3.80-5.40); RDW 16.5 % (11.5-15.5); WBC 5.9 k/uL (3.8-10.6)
[2017-09-14] MEDS ORDERED: LEVOTHYROXINE 75 MCG TAB PO SCH (06:30)
[2017-09-14 07:15] LABS: Eosinophils # (M) 0.41 k/uL (0-0.7); Lymphocytes # (M) 2.24 k/uL (1.0-4.8); Monocytes # (M) 0.24 k/uL (0-1.0); Neutrophils # (M) 3.01 k/uL (1.3-7.7); Neutrophils % (M) 51 %; Nucleated Red Blood Cells 0 /100 WBC (0-0); Total Cells Counted 100
[2017-09-14 07:58] VITALS: BP 85/54; PULSE 84; RESP 18; TEMP 97.3
[2017-09-14] MEDS: SYMBICORT 80-4.5 MCG INHALER INHALATION SCH (08:11)
[2017-09-14] MEDS ORDERED: TOPIRAMATE 25 MG TAB PO SCH (09:00)
[2017-09-14] MEDS ORDERED: CLOPIDOGREL 75 MG TAB PO SCH (09:00)
--- NOTE | 2017-09-14 09:01 | DS ---
DISCHARGE SUMMARY ADMISSION DATE: 09/13/2017 DISCHARGE DATE: 09/14/2017 BRIEF HISTORY: This is a pleasant 62-year-old female patient who underwent yesterday successful stenting of the mid LAD using drug-eluting stent with a good angiographic result and without complication. The procedure was performed from the right radial artery and she does have a good right radial pulse. The patient is going to be discharged home on dual anti-platelet therapy and I will follow up with the patient in the office as an outpatient in about a week. MMEULA / LUIZN: [id number] /
[2017-09-14] MEDS ORDERED: CHOLECALCIFEROL 1,000 UNIT TAB PO SCH (12:00)
== END 2017-09-14 10:15 | disposition home or self-care (01) ==
LOC: CATHCVL 10:52 → 6SEL 12:53 → CATHCVL 09-14 10:15
PROVIDERS: ATTEND Internal Medicine Interventional Cardiology
DX: I25.10 Atherosclerotic heart disease of native coronary artery without angina pectoris (principal); I25.84 Coronary atherosclerosis due to calcified coronary lesion; I10 Essential (primary) hypertension; I77.1 Stricture of artery; Z87.891 Personal history of nicotine dependence; Z86.718 Personal history of other venous thrombosis and embolism; E78.5 Hyperlipidemia, unspecified; Z79.82 Long term (current) use of aspirin; Z79.890 Hormone replacement therapy; Z79.899 Other long term (current) drug therapy; Z88.1 Allergy status to other antibiotic agents
CPT/HCPCS: 94640 ×2; 80048; 82565; 85025 ×2; C9600; C1769 ×2; C1887 ×2; C1725; C1874; C1894; J2001; J2250; J3010; J0583; Q9967

== ENCOUNTER → 2018-06-21 | Outpatient (CLI) | payer MEDICARE, OTHER | END | disposition home or self-care (01) | LOC: LABWHC1 14:23 | PROVIDERS: ATTEND Orthopaedic Surgery | DX: Z01.812 Encounter for preprocedural laboratory examination (principal) | CPT/HCPCS: 87070 ==

== ENCOUNTER → 2018-07-01 | Outpatient (CLI) | payer MEDICARE, OTHER ==
[2018-07-01 13:20] LABS: Anisocytosis Slight; Basophils # (A) 0.1 k/uL (0-0.2); Basophils % (A) 1 %; Eosinophils # (A) 0.2 k/uL (0-0.7); Eosinophils % (A) 3 %; HCT 34.8 % (34.0-46.0); HGB 10.4 gm/dL (11.4-16.0); Hypochromasia Marked; Lymphocytes # (A) 2.5 k/uL (1.0-4.8); Lymphocytes % (A) 39 %; MCH 22.6 pg (25.0-35.0); MCHC 29.9 g/dL (31.0-37.0); MCV 75.7 fL (80.0-100.0); Mean Platelet Volume 6.8; Microcytosis Slight; Monocytes # (A) 0.4 k/uL (0-1.0); Monocytes % (A) 6 %; Neutrophils # (A) 3.1 k/uL (1.3-7.7); Neutrophils % (A) 48 %; Platelet Count 326 k/uL (150-450); RBC 4.59 m/uL (3.80-5.40); RDW 16.3 % (11.5-15.5); WBC 6.5 k/uL (3.8-10.6)
[2018-07-01 13:35] LABS: INR 0.9 (<1.2); Partial Thromboplastin Time 23.7 sec (22.0-30.0); Prothrombin Time 9.8 sec (9.0-12.0)
[2018-07-01 13:45] LABS: Potassium 4.4 mmol/L (3.5-5.1)
== END | disposition home or self-care (01) ==
LOC: LABPAT 12:35
PROVIDERS: ATTEND Orthopaedic Surgery
DX: Z01.812 Encounter for preprocedural laboratory examination (principal); M19.011 Primary osteoarthritis, right shoulder; Z79.01 Long term (current) use of anticoagulants
CPT/HCPCS: 36415; 80051; 85025; 85610; 85730

== ENCOUNTER 2018-07-05 11:46 | Inpatient (IN) | payer MEDICARE, OTHER ==
--- NOTE | 2018-07-04 10:27 | HP ---
HISTORY AND PHYSICAL CHIEF COMPLAINT: Right shoulder pain. HISTORY OF PRESENT ILLNESS: The patient is a 63-year-old right-hand dominant female who presents with progressive right shoulder pain worsening over the past 3-4 months. She has had problems for quite some time. She has tried previous injections along with medications with only partial temporary relief. She notes stiffness along with pain with any attempted overhead use. She is having significant night symptoms. PAST MEDICAL HISTORY: Significant for anemia, coronary artery disease, depression, hypothyroidism, previous DVT and factor V deficiency. PAST SURGICAL HISTORY: Significant for cardiac stent placement, [employer] [place] [employer] filter placement, radial nerve release, tonsillectomy, hysterectomy, and appendectomy. CURRENT MEDICATIONS: 1. Aspirin. 2. Eliquis. 3. Flexeril. 4. Lipitor. 5. [place]. 6. Plavix. 7. Synthroid. 8. Topamax. She has allergies to LEVAQUIN. FAMILY HISTORY: Significant for heart disease, diabetes, cancer and factor V deficiency. SOCIAL HISTORY: Significant for previous tobacco use; however, she quit in 2012. 16 POINT REVIEW OF SYSTEMS: Otherwise reviewed and is noncontributory. PHYSICAL EXAMINATION: On examination, the patient is approximately 5 foot 7, 162 pounds of mesomorphic habitus. HEENT exam is nonfocal. Neck is supple. Active motion right shoulder. Forward elevation 80 degrees, external rotation with the arm at the side 30 degrees, internal rotation to L3. Passively male to forward elevate her to 110 degrees. Motor strength is 5/5 for abduction and external rotation. Impingement test, NEER test, and Speed tests are positive. Her distal neurovascular exam otherwise appears intact in the right upper extremity. AP and scapular outlet views of the right shoulder obtained in the office show severe glenohumeral joint osteoarthrosis with [id number] changes. IMPRESSION: 1. Right shoulder severe glenohumeral joint osteoarthrosis. 2. Factor V deficiency. 3. History of deep venous thrombosis/pulmonary embolism. 4. Coronary artery disease. RECOMMENDATIONS: I talked to the patient at length regarding her condition and treatment options. At this point, she is limited because of pain related to her osteoarthrosis despite conservative measures. After a thorough discussion, she opts to proceed with surgery. We will plan to proceed with right total shoulder arthroplasty. Risks and benefits were discussed at length in layman's terms. She underwent preoperative medical evaluation by Dr. Timothy Fountain and cardiac evaluation by Dr. Coombs. We will reinstitute her Plavix postoperatively. MMEDOUARDL / IJN: [id number] /
[~2018-07-05 11:46] MED LIST changes: +ACETAMINOPHEN TAB 500 MG TAB PO ONE; -ALPRAZolam 0.25 MG TAB PO PRN; -ALPRAZolam 0.5 MG TAB PO PRN; -ASPIRIN 325 MG TAB PO STA; -ATORVASTATIN 80 MG TAB PO STA; +DEXAMETHASONE SOD PHOSPHATE 10 MG/ML 1 ML VIAL IV ONE; +LIDOCAINE 1% 20 ML VIAL (10MG/ML) FOR IV START INTRADERMA PRN; +MELOXICAM 7.5 MG TAB PO ONE; +MIDAZOLAM (PF) 2 MG/2 ML VIAL IV PRN; -NITROGLYCERIN SL TABS 0.4 MG TAB SUBLINGUAL PRN; +ONDANSETRON 4 MG/2 ML VIAL IVP ONE; +SCOPOLAMINE 1.5MG/72HR PATCH TRANSDERM ONE; -SODIUM CHLORIDE 0.9% 1,000 ML in EMPTY BAG 1 BAG IV ONE; +TRANEXAMIC ACID 1,000 MG in SODIUM CHLORIDE 0.9% 100 ML IVPB ONE; +VANCOMYCIN 1,250 MG in SODIUM CHLORIDE 0.9% 250 ML IVPB ONE
[2018-07-05] MEDS: LACTATED RINGERS 1,000 ML IV SCH (12:19)
[2018-07-05] MEDS ORDERED: LIDOCAINE 1% INJ 10MG/ML (20 ML MDV) ONE (13:49)
[2018-07-05] MEDS ORDERED: DEXAMETHASONE SOD PHOS (MDV) 100 MG/10 ML VIAL ONE (13:49)
[2018-07-05] MEDS ORDERED: fentaNYL (PF) 50 MCG/ML 2 ML AMP ONE (13:49)
[2018-07-05] MEDS ORDERED: ROCURONIUM BROMIDE 10 MG/ML 10 ML VIAL IV ONE (13:49)
[2018-07-05] MEDS ORDERED: SUCCINYLCHOLINE CHLORIDE 100 MG/5 ML SYR IV ONE (13:49)
[2018-07-05] MEDS ORDERED: ROPIVACAINE 5 MG/ML 30 ML VIAL ONE (13:49)
[2018-07-05] MEDS ORDERED: MIDAZOLAM 2 MG/2 ML VIAL ONE (13:49)
[2018-07-05] MEDS ORDERED: PROPOFOL 10 MG/ML 20 ML VIAL IV ONE (13:49)
[2018-07-05] MEDS ORDERED: HYDROmorphone (PF) 1 MG/ML ONE (13:49)
[2018-07-05] MEDS ORDERED: PHENYLEPHRINE-0.9% NACL SYG 1 MG/10 ML SYRINGE ONE (13:49)
[2018-07-05] MEDS ORDERED: ceFAZolin 3,000 MG in SODIUM CHLORIDE 0.9% IRRIGATIO 3,000 ML IRRIGATION ONE (14:19)
[2018-07-05] MEDS ORDERED: LACTATED RINGERS 1,000 ML IV ONE (15:31)
[2018-07-05] MEDS ORDERED: ONDANSETRON 4 MG/2 ML VIAL IVP PRN (15:40)
[2018-07-05] MEDS ORDERED: HYDROmorphone 0.5 MG/0.5 ML SYRINGE IVP PRN ×2 (15:40)
[2018-07-05] MEDS ORDERED: SENNOSIDES-DOCUSATE SODIUM 1 EACH TAB PO PRN (15:40)
[2018-07-05] MEDS ORDERED: HYDROcodone/APAP 7.5-325MG 1 EACH TAB PO PRN (15:42)
[2018-07-05] MEDS ORDERED: ceFAZolin IN SWFI 2 GM/20 ML SYRINGE IVP SCH (16:00)
--- NOTE | 2018-07-05 16:03 | P.OP ---
Date of Procedure: 07/05/18 Preoperative Diagnosis: Severe right glenohumeral joint osteoarthrosis Postoperative Diagnosis: Same Procedure(s) Performed: Right total shoulder arthroplasty Implants: [employer] size 12 press-fit humeral stem, 48 mm x 21 mm eccentric humeral head, 44 mm glenoid componentpeggedcemented Anesthesia: JONATHAN Surgeon: Bo Romano [employer]vertising Job Titles #1: Gerald Wray Estimated Blood Loss (ml): 250 Pathology: other (Humeral head) Condition: stable Disposition: PACU Indications for Procedure: The patient's a 63-year-old female who presents with progressive right shoulder pain secondary to osteoarthrosis despite conservative measures. A discussion of the risks and benefits of operative intervention versus continued conservative measures was made with the patient. She opted to proceed with surgery. Operative risks to include infection, neurovascular injury, development of blood clots, possible fracture, possible instability and need for subsequent procedures was discussed. Informed consent was obtained. Operative Findings: As below Description of Procedure: The patient was brought to the operating room, and after induction of general anesthesia was placed in the beachchair position. The bony prominences were appropriately padded. The right upper extremity was prepped and draped in normal fashion. A deltopectoral incision was then made lateral to the coracoid process extending approximately 12 cm. The skin was incised sharply. Subcutaneous tissues were divided bluntly. Electrocautery was used for hemostasis. The deltopectoral interval was identified and the cephalic vein gently retracted laterally with the deltoid. Subdeltoid adhesions were bluntly dissected. A self-retaining retractor was placed. The clavipectoral fascia was opened and the conjoined tendon gently retracted medially. The upper one third of the pectoralis major was released to help facilitate exposure. The biceps was identified and the sheath was opened. The rotator interval was opened. The biceps was tenotomized and allowed to retract distally. The lesser tuberosity osteotomy was performed with a small sagittal saw. This completed with an osteotome. The humeral head was then exposed releasing the capsule off the humeral neck. The shoulder was gently dislocated. A starting hole was made in the head in line with the humeral shaft. The shaft was reamed by hand up to 12 mm. There is good distal chatter. The cutting guide was placed planning on 8 cut flush with the rotator cuff insertion and 30 of retroversion. The cutting block was pinned in place. The humeral head cut was then made. This measured most appropriately at 48 x 21 mm. Residual inferior osteophytes were carefully removed flush with the mentasta cortical bone. A posterior glenoid retractor was placed. The glenoid was then exposed releasing the labrum from the 12:00 to 6 o'clock position. Residual labral tissue was removed. The glenoid sized most appropriate 44 mm. A guidewire was then inserted planning on the appropriate version. The glenoid was reamed down to a bleeding bony surface. The central pedicle was drilled. The alignment guide was placed in the peripheral peg holes drilled. The trial size 44 mm glenoid was placed and was fully seated. There was good anterior to posterior and inferior to superior fit. The trial component was removed. Pulsatile lavage was utilized. The bony surface was dried. The peripheral peg holes were then pressurized with cement utilizing a syringe. Excess cement was removed. A central peg glenoid was then placed and was fully seated. This was gently impacted. This was held in place until the cement had sufficiently hardened. Attention was then paid again towards preparing the proximal humerus. The appropriate broach was placed in 30 of retroversion and was fully seated. An eccentric 48 x 21 mm humeral head was placed. The shoulder was gently reduced. It was taken through a range of motion. It was felt to be stable in flexion and extension with internal and external rotation. I felt there was adequate taoist of soft tissue tension. The shoulder was gently dislocated. The trial components were then removed. A #2 Ethibond was placed laterally for reattachment of the lesser tuberosity. The humeral stem was inserted in 30 of retroversion and was fully seated. There was good rotational stability. The eccentric 48 x 21 mm humeral head was gently impacted. The shoulder was then gently reduced and taken through range of motion and was felt to be stable. Pulsatile lavage was utilized. Lesser tuberosity was reattached utilizing #2 Ethibond suture. The rotator interval was closed with #2 Ethibond suture. She had minimal drainage at this point therefore a deep drain was not placed. The deltopectoral interval was closed with interrupted 2-0 Vicryl sutures. The subcu tissues were reapproximated with interrupted 2-0 Vicryl sutures. The skin was reprepped with 3-0 subcuticular Prolene suture. Steri-Strips were applied. A sterile dressing was applied in addition to a sling. The patient was then awoken from general anesthesia and transferred to recovery room in good condition. Blood loss was estimated at 250 mL. No complications were incurred. Sponge and needle counts were correct at the end the case.
[2018-07-05] MEDS: HYDROmorphone 0.5 MG/0.5 ML SYRINGE IVP PRN ×4 (16:10→16:28)
--- NOTE | 2018-07-05 16:21 | XR ---
Right shoulder HISTORY: Status post right shoulder arthroplasty Single frontal view of the right shoulder Patient is status post right shoulder arthroplasty. Lucency in the soft tissues is compatible with po stop change. Right lung apex as visualized is normal. There is anatomic alignment. IMPRESSION: Orthopedic follow-up.
[2018-07-05 18:05] VITALS: BMI 27.2
[2018-07-05] MEDS ORDERED: ALBUTEROL NEBULIZED 2.5 MG/3 ML INHALATION PRN (19:41)
[2018-07-05] MEDS: CYCLOBENZAPRINE 10 MG TAB PO SCH (20:12)
[2018-07-05] MEDS: DULoxetine HCL 60 MG CAPSULE.DR PO SCH (20:12)
[2018-07-05] MEDS: APIXABAN 5 MG TAB PO SCH (20:12)
[2018-07-05] MEDS: MECLIZINE 25 MG TAB PO SCH (20:12)
[2018-07-05] MEDS: ATORVASTATIN 80 MG TAB PO SCH (20:12)
[2018-07-05] MEDS: DIAZEPAM 2 MG TAB PO SCH (20:12)
[2018-07-05] MEDS: IPRATROPIUM 0.5 MG/2.5 ML NEBU INHALATION SCH (20:22)
[2018-07-06] MEDS ORDERED: VANCOMYCIN 1,250 MG in SODIUM CHLORIDE 0.9% 250 ML IVPB ONE (00:30)
[2018-07-06] MEDS: LEVOTHYROXINE 125 MCG TAB PO SCH (05:18)
[2018-07-06] MEDS: HYDROcodone/APAP 7.5-325MG 1 EACH TAB PO PRN ×4 (05:18→20:41)
[2018-07-06] MEDS: LACTATED RINGERS 1,000 ML IV SCH (05:45)
[2018-07-06] MEDS ORDERED: METOPROLOL TARTRATE 12.5 MG TAB PO PRN ×2 (07:30→21:00)
[2018-07-06] MEDS: IPRATROPIUM 0.5 MG/2.5 ML NEBU INHALATION SCH ×4 (07:33→21:01)
[2018-07-06 08:09] LABS: Anisocytosis Slight; Basophils % (A) 0 %; Eosinophils % (A) 0 %; HCT 25.4 % (34.0-46.0); Hypochromasia Marked; Lymphocytes # (A) 1.5 k/uL (1.0-4.8); Lymphocytes % (A) 15 %; MCH 22.8 pg (25.0-35.0); MCHC 29.4 g/dL (31.0-37.0); MCV 77.5 fL (80.0-100.0); Mean Platelet Volume 6.3; Microcytosis Slight; Monocytes # (A) 0.6 k/uL (0-1.0); Monocytes % (A) 6 %; Neutrophils # (A) 7.5 k/uL (1.3-7.7); Neutrophils % (A) 77 %; Platelet Count 273 k/uL (150-450); RBC 3.28 m/uL (3.80-5.40); RDW 16.3 % (11.5-15.5); WBC 9.8 k/uL (3.8-10.6)
[2018-07-06 08:14] LABS: HGB 7.5 gm/dL (11.4-16.0)
[2018-07-06] MEDS: TOPIRAMATE 25 MG TAB PO SCH (10:04)
[2018-07-06] MEDS: CLOPIDOGREL 75 MG TAB PO SCH (10:08)
[2018-07-06] MEDS: LORATADINE 10 MG TAB PO SCH (10:08)
[2018-07-06] MEDS: MECLIZINE 25 MG TAB PO SCH ×3 (10:08→20:41)
[2018-07-06] MEDS: CYCLOBENZAPRINE 10 MG TAB PO SCH ×3 (10:08→20:41)
[2018-07-06] MEDS: APIXABAN 5 MG TAB PO SCH ×2 (10:08→20:42)
--- NOTE | 2018-07-06 11:11 | P.PN ---
Subjective Progress Note Date: 07/06/18 Principal diagnosis: Status post right total shoulder arthroplasty Patient evaluated at bedside today, she is resting comfortably. She did note a headache this morning, she attributes this to her low hemoglobin. Hemoglobin was noted to be a 7.5. She has a history of previous low hemoglobins with multiple transfusions. She notes pain to be controlled at this time. She ashely es any chest pain or shortness of breath. Objective - Vital Signs Vital signs: Vital Signs Temp 98.1 F 07/06/18 07:05 Pulse 96 07/06/18 07:47 Resp 16 07/06/18 07:05 BP 100/61 07/06/18 07:05 Pulse Ox 97 07/06/18 07:35 Intake & Output 07/05/18 07/06/18 07/06/18 18:59 06:59 18:59 Intake Total 2397 710 Output Total 250 Balance 2147 710 Intake: IV 1801 Intake, IV Titration 710 Amount Lactated Ringers 1,000 ml 460 @ 40 mls/hr IV .Q24H JOSE LUIS Rx#:[id number] Vancomycin 1,250 mg In 250 Sodium Chloride 0.9% 250 ml @ 250 mls/hr IVPB ONCE ONE Rx#:[id number] Oral 596 Output: Estimated Blood Loss 250 Other: Voiding Method Toilet # Voids 2 - Exam Right upper extremity: Initial postoperative bandage was removed, Steri-Strips are all in good position and condition. Soft tissue swelling or ecchymosis noted into the arm towards elbow. Sensory exam to light touch throughout the extremities intact, radial pulses 2+ - Labs CBC & Chem 7: 07/06/18 07:21 Labs: Abnormal Lab Results - Last 24 Hours (Table) 07/06/18 Range/Units 07:21 RBC 3.28 L (3.80-5.40) m/uL Hgb 7.5 L D (11.4-16.0) gm/dL Hct 25.4 L (34.0-46.0) % MCV 77.5 L (80.0-100.0) fL MCH 22.8 L (25.0-35.0) pg MCHC 29.4 L (31.0-37.0) g/dL RDW 16.3 H (11.5-15.5) % Assessment and Plan Plan: Assessment: Postoperative day #1 status post right total shoulder arthroplasty Acute blood loss anemia, expected surgical outcome Plan: Pain control, continue current medication GI and DVT prophylaxis, all her home medications have been resumed 1 unit has been ordered of pack red blood cells due to current hemoglobin is 7.5, we'll recheck CBC tomorrow Dressing changes daily, ice the shoulder Utilize arm sling Medical recommendations Discharge planning: Patient will be discharged home in stable Time with Patient: Less than 30
[2018-07-06] MEDS: SYMBICORT 80-4.5 MCG INHALER INHALATION SCH ×2 (11:12→21:01)
--- NOTE | 2018-07-06 12:40 | P.ONQ ---
Anesthesiology Proc Note - PNB - Peripheral Nerve Block Performed Right Interscalene Single Time Out Performed: Yes Procedure Start Time: 16:46 Procedure Stop Time: 16:59 Indication: Acute Post-Operative Pain, Requested by physician Sedation Type: Sedate with meaningful contact maintained Preparation: Sterile Prep Position: Supine Needle Size: 50mm (2") Needle Gauge: 21 Technique: Ultrasound Injectate: 0.5% Ropivacaine (see comment for volume) (ropi .5% 30cc plus dexamethasone 4mg) Blood Aspirated: No Pain Paresthesia on Injection Noted: No Resistance on Injection: Normal Events: Uneventful and Well Tolerated
--- NOTE | 2018-07-06 16:26 | CONS ---
CONSULTATION SUBJECTIVE: Medical consult, status post right shoulder replacement. She has got her right arm in a triangle-type brace. She states her hemoglobin has dropped to 7.5. We are monitoring for possible blood transfusion at this time. No chest pain or shortness of breath. PAST MEDICAL HISTORY: Significant for: 1. Coronary artery disease. 2. Anemia. 3. Depression. 4. Hypothyroidism. 5. Prior DVT. 6. Factor V deficiency. PAST SURGICAL HISTORY: 1. Cardiac stents. 2. Harlan filter. 3. Radial nerve release. 4. Tonsillectomy. 5. Hysterectomy. 6. . 7. Appendectomy. MEDICATIONS: 1. Topamax. 2. Synthroid. 3. Plavix. 4. Eliquis. 5. Aspirin. 6. Flexeril. 7. Lipitor. FAMILY HISTORY: Diabetes, factor V deficiency, heart disease. SOCIAL HISTORY: Previous nicotine addiction; quit. ALLERGIES: LEVAQUIN. PHYSICAL EXAMINATION: Height 5 feet 7 inches. Weight 162 pounds. HEENT: Normocephalic, atraumatic. CARDIOVASCULAR: S1, S2. LUNGS: Clear. GI: Soft. MUSCULOSKELETAL: Right arm in a triangle-type brace. ASSESSMENT: 1. Status post surgical repair of the right total shoulder arthroplasty. 2. Factor V deficiency. 3. History of deep venous thrombosis. 4. Pulmonary embolism. 5. Coronary artery disease. 6. Hypothyroidism. Continue home medications. Possibly hold blood thinners at this time if she continues to have low hemoglobin. Continue on current medications, including Eliquis and Plavix she normally takes at home and monitor for low hemoglobin. MMODL / IJN: [id number] /
[2018-07-06] MEDS ORDERED: PANTOPRAZOLE 40 MG TABLET PO SCH (17:30)
[2018-07-06] MEDS: DULoxetine HCL 60 MG CAPSULE.DR PO SCH (20:41)
[2018-07-06] MEDS: ATORVASTATIN 80 MG TAB PO SCH (20:41)
[2018-07-07] MEDS: DIAZEPAM 2 MG TAB PO SCH (00:24)
[2018-07-07] MEDS: HYDROcodone/APAP 7.5-325MG 1 EACH TAB PO PRN ×3 (02:24→14:29)
[2018-07-07] MEDS: LACTATED RINGERS 1,000 ML IV SCH (07:03)
[2018-07-07] MEDS: LORATADINE 10 MG TAB PO SCH (07:18)
[2018-07-07] MEDS: TOPIRAMATE 25 MG TAB PO SCH (07:18)
[2018-07-07] MEDS: MECLIZINE 25 MG TAB PO SCH (07:18)
[2018-07-07] MEDS: CYCLOBENZAPRINE 10 MG TAB PO SCH (07:18)
[2018-07-07] MEDS: CLOPIDOGREL 75 MG TAB PO SCH (07:18)
[2018-07-07] MEDS: APIXABAN 5 MG TAB PO SCH (07:18)
[2018-07-07] MEDS: LEVOTHYROXINE 125 MCG TAB PO SCH (07:18)
[2018-07-07 07:34] VITALS: BP 108/71; RESP 20; TEMP 97.8
[2018-07-07 07:58] LABS: Anisocytosis Slight; Basophils # (A) 0.1 k/uL (0-0.2); Basophils % (A) 1 %; Eosinophils # (A) 0.2 k/uL (0-0.7); Eosinophils % (A) 3 %; HCT 28.7 % (34.0-46.0); HGB 8.8 gm/dL (11.4-16.0); Hypochromasia Marked; Lymphocytes # (A) 2.7 k/uL (1.0-4.8); Lymphocytes % (A) 32 %; MCHC 30.5 g/dL (31.0-37.0); MCV 78.5 fL (80.0-100.0); Mean Platelet Volume 6.7; Microcytosis Slight; Monocytes # (A) 0.5 k/uL (0-1.0); Monocytes % (A) 7 %; Neutrophils # (A) 4.5 k/uL (1.3-7.7); Neutrophils % (A) 55 %; Platelet Count 276 k/uL (150-450); Poikilocytosis Slight; RBC 3.66 m/uL (3.80-5.40); RDW 16.7 % (11.5-15.5); WBC 8.2 k/uL (3.8-10.6)
[2018-07-07] MEDS: SYMBICORT 80-4.5 MCG INHALER INHALATION SCH (08:35)
[2018-07-07] MEDS: IPRATROPIUM 0.5 MG/2.5 ML NEBU INHALATION SCH ×2 (08:35→12:04)
--- NOTE | 2018-07-07 11:05 | P.PN ---
Subjective Progress Note Date: 07/07/18 Principal diagnosis: Status post right total shoulder arthroplasty Patient evaluated at bedside today, she is resting comfortably. Hemoglobin has improved since transfusion of 1 unit. She notes pain to be controlled at this time. She denies any chest pain or shortness of breath. Objective - Vital Signs Vital signs: Vital Signs Temp 97.8 F 07/07/18 07:00 Pulse 100 07/07/18 08:54 Resp 20 07/07/18 07:00 BP 108/71 07/07/18 07:00 Pulse Ox 97 07/07/18 07:00 Intake & Output 07/06/18 07/07/18 07/07/18 18:59 06:59 18:59 Intake Total 400 310 200 Balance 400 310 200 Intake: Oral 400 200 Blood Product 310 Rc As-1 Unit 310 [id number] - Exam Right upper extremity: Steri-Strips are all in good position and condition. Soft tissue swelling or ecchymosis noted into the arm towards elbow. Sensory exam to light touch throughout the extremities intact, radial pulses 2+ - Labs CBC & Chem 7: 07/07/18 07:18 Labs: Abnormal Lab Results - Last 24 Hours (Table) 07/06/18 07/07/18 Range/Units 10:36 07:18 RBC 3.66 L (3.80-5.40) m/uL Hgb 8.8 L (11.4-16.0) gm/dL Hct 28.7 L (34.0-46.0) % MCV 78.5 L (80.0-100.0) fL MCH 24.0 L (25.0-35.0) pg MCHC 30.5 L (31.0-37.0) g/dL RDW 16.7 H (11.5-15.5) % Crossmatch See Detail Assessment and Plan Plan: Assessment: Postoperative day #2 status post right total shoulder arthroplasty Acute blood loss anemia, expected surgical outcome Plan: Pain control, plan for discharge on Accord 7.5 mg/25 mg GI and DVT prophylaxis, all her home medications have been resumed Prescription has been placed for a CBC to be drawn in 5 days for recheck of hemoglobin Dressing changes daily, ice the shoulder Utilize arm sling Medical recommendations Discharge planning: Plan for discharge home today Time with Patient: Less than 30
--- NOTE | 2018-07-07 11:08 | P.DS ---
Providers Date of admission: 07/05/18 11:46 Expected date of discharge: 07/07/18 Attending physician: Bo Romano [facility] Course: Date of admission: 07/05/2018 Date of discharge: 07/07/2018 Admission diagnosis: Status post right total shoulder arthroplasty Discharge diagnosis: Same Attending physician: Dr. Romano Surgical procedures: Right total shoulder arthroplasty Brief history: Patient is a 63-year-old female with a history of progressive primary right shoulder osteoarthritis. At this point patient has failed conservative treatment measures and has opted to proceed with a elective right total shoulder arthroplasty. Hospital course: Details of patient's surgery can be found in operative report. Patient tolerated the procedure well and was subsequently transported to orthopedic floor. Patient's orthopeidc and medical care was provided daily. Patient had daily laboratory tests performed for evaluation of overall blood counts. Patient had daily physical therapy to include strengthening range of motion as well as education with walker ambulation. Patient was treated with Eliquis, Plavix, aspirin for their postoperative DVT prophylaxis during their inpatient stay. Patient was noted to have a relatively uneventful postoperative course. Patient reported satisfactory pain control with oral pain medications by postoperative day 0. Patient showed satisfactory progress with physical therapy. Patient moved steadily through the program and had no difficulty meeting the goals by postoperative day 2. Given patient's otherwise satisfactory course and having met physical therapy goals, plan is to discharge patient home on postoperative day 2. Discharge condition/disposition: Patient will be discharged home in stable condition. Discharge medications: Instructions are given on resumption of patient's normal daily medications per primary care recommendation, in addition patient will be prescribed Olancha 7.5 mg/325 mg, Colace 100 mg. Discharge instructions: 1. Wound care and infection precautions, keep incision dry and covered while showering, no lotions, creams, moisturizers. No soaking, tubs, pools, hottubs. Do not scrub over the incision. 2. Utilize arm sling 3. Ice and elevate when necessary. Do not exceed 20 minutes per hour with ice pack. 4. Utilize compression sleeve until seen at first follow up appointment. 5. Visiting nursing care. 6. Home physical therapy. 7. Pain meds and anticoagulants per prescription. 8. Pain medication has potential to cause constipation. Increase oral fluid and fiber intake. Contact primary care provider if you have not had a bowel movement within 48 hours after discharge 9. No anti-inflammatory medication until discussed at first post operative visit, this including Motrin, Aleve, Mobic, Diclofenac. 10. Follow up in office at 2 weeks postop with Ronak Wray PA-C 11. Follow up with your primary care doctor 7-10 days after discharge. 12. Contact [facility] with any questions, . Procedures: Right total shoulder arthroplasty Patient Condition at Discharge: Good Plan - Discharge Summary Discharge Rx Participant: Yes New Discharge Prescriptions: New Docusate [Colace] 100 mg PO DAILY #20 capsule HYDROcodone/APAP 7.5-325MG [Olancha 7.5] 1 - 2 each PO Q6HR PRN #56 tab PRN Reason: Pain No Action Omeprazole [PriLOSEC] 20 mg PO AC-SUPPER DULoxetine HCL [Cymbalta] 60 mg PO HS Albuterol Inhaler [Ventolin Hfa Inhaler] 1 - 2 puff INHALATION RT-QID PRN PRN Reason: Shortness Of Breath Topiramate [Topamax] 50 mg PO DAILY Metoprolol Tartrate [Lopressor] 12.5 mg PO HS PRN PRN Reason: if heart rate elevated Metoprolol Tartrate [Lopressor] 12.5 mg PO AC-BRKFST PRN PRN Reason: if heart rate elevated Aspirin 81 mg PO HS Diazepam [Valium] 2 mg PO HS Cyclobenzaprine HCl 10 mg PO TID Atorvastatin [Lipitor] 80 mg PO HS #90 tab Clopidogrel [Plavix] 75 mg PO DAILY #90 tab Meclizine [Antivert] 25 mg PO TID Loratadine [Claritin] 10 mg PO DAILY Apixaban [Eliquis] 5 mg PO BID Fluticasone/Umeclidin/Vilanter [Trelegy Ellipta 100-62.5-25] 1 puff INHALATION RT-DAILY Levothyroxine Sodium [Synthroid] 125 mcg PO DAILY Discharge Medication List Albuterol Inhaler [Ventolin Hfa Inhaler] 1 - 2 puff INHALATION RT-QID PRN 06/09/17 [History] DULoxetine HCL [Cymbalta] 60 mg PO HS 06/09/17 [History] Omeprazole [PriLOSEC] 20 mg PO AC-SUPPER 06/09/17 [History] Topiramate [Topamax] 50 mg PO DAILY 06/09/17 [History] Aspirin 81 mg PO HS 09/08/17 [History] Cyclobenzaprine HCl 10 mg PO TID 09/08/17 [History] Diazepam [Valium] 2 mg PO HS 09/08/17 [History] Metoprolol Tartrate [Lopressor] 12.5 mg PO AC-BRKFST PRN 09/08/17 [History] Metoprolol Tartrate [Lopressor] 12.5 mg PO HS PRN 09/08/17 [History] Atorvastatin [Lipitor] 80 mg PO HS #90 tab 09/14/17 [Rx] Clopidogrel [Plavix] 75 mg PO DAILY #90 tab 09/14/17 [Rx] Apixaban [Eliquis] 5 mg PO BID 06/30/18 [History] Fluticasone/Umeclidin/Vilanter [Trelegy Ellipta 100-62.5-25] 1 puff INHALATION RT-DAILY 06/30/18 [History] Loratadine [Claritin] 10 mg PO DAILY 06/30/18 [History] Meclizine [Antivert] 25 mg PO TID 06/30/18 [History] Levothyroxine Sodium [Synthroid] 125 mcg PO DAILY 07/05/18 [History] Docusate [Colace] 100 mg PO DAILY #20 capsule 07/07/18 [Rx] HYDROcodone/APAP 7.5-325MG [Olancha 7.5] 1 - 2 each PO Q6HR PRN #56 tab 07/07/18 [Rx] Follow up Appointment(s)/Referral(s): Timothy Fountain MD [Primary Care Provider] - 07/12/18 2:45 pm Gerald Wray PAC [PHYSICIAN LEAD SYSTEMS DEVELOPER] - 07/20/18 3:00 pm Activity/Diet/Wound Care/Special Instructions: Orthopedic Discharge Instructions: 1. Wound care and infection precautions, [keep incision dry and covered while showering], no lotions, creams, moisturizers. No soaking, pools, hot tubs. Do not scrub over incision. 2. Utilize arm sling 3. Ice and elevate when necessary. Do not exceed 20 minutes per hour with ice pack. 4. Utilize compression sleeve until seen at first follow up appointment. 5. Pain meds and anticoagulants per prescription. 6. Pain medication has potential to cause constipation. Increase oral fluid and fiber intake. Contact primary care provider if you have not had a bowel movement within 48 hours after discharge. 7. No anti-inflammatory medication until discussed at first post operative visit, this including Motrin, Aleve, Mobic, Diclofenac. 8. Follow up in office at 2 weeks postop with Ronak Wray PA-C 9. Follow up with your primary care doctor 7-10 days after discharge. 10. Contact [facility] with any questions, [phone]. 11. [facility] - [phone] Discharge Disposition: HOME WITH HOME HEALTH SERVICES
[2018-07-07 12:14] VITALS: PULSE 96
== END 2018-07-07 14:53 | disposition home health service (06) | DRG 483 ==
LOC: 2ORMAIN 11:46 → 4SSUR 16:03
PROVIDERS: ADMIT Orthopaedic Surgery; ATTEND Orthopaedic Surgery
PROC: 0RRJ0JZ Replacement of Right Shoulder Joint with Synthetic Substitute, Open Approach (ICD-10-PCS; principal; 2018-07-05 14:00)
PROC: 30233N1 Transfusion of Nonautologous Red Blood Cells into Peripheral Vein, Percutaneous Approach (ICD-10-PCS; 2018-07-06)
DX: M19.011 Primary osteoarthritis, right shoulder (principal); D68.2 Hereditary deficiency of other clotting factors; D62 Acute posthemorrhagic anemia; E03.9 Hypothyroidism, unspecified; I25.10 Atherosclerotic heart disease of native coronary artery without angina pectoris; F32.9 Major depressive disorder, single episode, unspecified; R51 Headache; I10 Essential (primary) hypertension; J44.9 Chronic obstructive pulmonary disease, unspecified; K21.9 Gastro-esophageal reflux disease without esophagitis; Z86.711 Personal history of pulmonary embolism; Z86.718 Personal history of other venous thrombosis and embolism; Z87.891 Personal history of nicotine dependence; Z90.710 Acquired absence of both cervix and uterus; Z95.5 Presence of coronary angioplasty implant and graft; Z90.49 Acquired absence of other specified parts of digestive tract; Z79.02 Long term (current) use of antithrombotics/antiplatelets; Z79.82 Long term (current) use of aspirin; Z79.890 Hormone replacement therapy; Z79.899 Other long term (current) drug therapy; Z88.1 Allergy status to other antibiotic agents; Z83.3 Family history of diabetes mellitus; Z82.49 Family history of ischemic heart disease and other diseases of the circulatory system; Z83.2 Family history of diseases of the blood and blood-forming organs and certain disorders involving the immune mechanism
CPT/HCPCS: 64415; 85025; 86850; 86870; 86880; 86900; 86901; 86902; 86920; 88300; 94640; 94760

== ENCOUNTER → 2018-10-28 | Outpatient (CLI) | payer MEDICARE, OTHER ==
[2018-10-28 12:32] LABS: Anisocytosis Marked; Basophils % (A) 1 %; Eosinophils # (A) 0.1 k/uL (0-0.7); Eosinophils % (A) 2 %; HCT 42.9 % (34.0-46.0); HGB 12.9 gm/dL (11.4-16.0); Hypochromasia Marked; Lymphocytes # (A) 1.7 k/uL (1.0-4.8); Lymphocytes % (A) 26 %; MCH 25.4 pg (25.0-35.0); MCV 84.7 fL (80.0-100.0); Mean Platelet Volume 7.6; Microcytosis Moderate; Monocytes # (A) 0.3 k/uL (0-1.0); Monocytes % (A) 5 %; Neutrophils # (A) 4.3 k/uL (1.3-7.7); Neutrophils % (A) 65 %; Platelet Count 224 k/uL (150-450); Poikilocytosis Slight; RBC 5.07 m/uL (3.80-5.40); RDW 24.9 % (11.5-15.5); WBC 6.7 k/uL (3.8-10.6)
== END | disposition home or self-care (01) ==
LOC: LABPAT 11:05
PROVIDERS: ATTEND Surgery
DX: Z01.812 Encounter for preprocedural laboratory examination (principal); Z01.818 Encounter for other preprocedural examination; K21.0 Gastro-esophageal reflux disease with esophagitis; R13.19 Other dysphagia
CPT/HCPCS: 85025; 93005

== ENCOUNTER 2018-11-07 07:21 | Day surgery (SDC) | payer MEDICARE, OTHER ==
[~2018-11-07 07:21] MED LIST changes: -ACETAMINOPHEN TAB 500 MG TAB PO ONE; -DEXAMETHASONE SOD PHOSPHATE 10 MG/ML 1 ML VIAL IV ONE; +HEPARIN SODIUM,PORCINE 5,000 UNIT/ML 1 ML VIAL SQ ONE; -LIDOCAINE 1% 20 ML VIAL (10MG/ML) FOR IV START INTRADERMA PRN; -MELOXICAM 7.5 MG TAB PO ONE; -MIDAZOLAM (PF) 2 MG/2 ML VIAL IV PRN; -ONDANSETRON 4 MG/2 ML VIAL IVP ONE; -SCOPOLAMINE 1.5MG/72HR PATCH TRANSDERM ONE; -TRANEXAMIC ACID 1,000 MG in SODIUM CHLORIDE 0.9% 100 ML IVPB ONE; -VANCOMYCIN 1,250 MG in SODIUM CHLORIDE 0.9% 250 ML IVPB ONE; +ceFAZolin IN SWFI 2 GM/20 ML SYRINGE IVP ONE
[2018-11-07] MEDS ORDERED: LACTATED RINGERS 1,000 ML IV SCH (08:01)
[2018-11-07] MEDS ORDERED: LIDOCAINE 1% 20 ML VIAL (10MG/ML) FOR IV START INTRADERMA PRN (08:01)
[2018-11-07] MEDS ORDERED: DEXAMETHASONE SOD PHOSPHATE 10 MG/ML 1 ML VIAL IV ONE (08:01)
[2018-11-07] MEDS: ONDANSETRON 4 MG/2 ML VIAL IVP ONE ×2 (08:48→10:53)
--- NOTE | 2018-11-07 09:02 | P.GSHP ---
History of Present Illness H&P Date: 11/07/18 Chief Complaint: GERD This is a 63-year-old female referred from Dr. Timothy Zacarias.The patient has had long-standing problems with reflux esophagitis. The patient underwent recent EGD is found have evidence of esophagitis. Patient has been well informed on the procedure of laparoscopic Yoselyn fundoplication. The patient is aware the risk of the conversion to the open procedure, risk of injury to the stomach, liver and spleen. The patient is also a risk of recurrent GERD and dysphagia symptoms. The patient understands there is a postoperative diet of full liquids for 2 weeks after surgery. Past Medical History Past Medical History: COPD, GERD/Reflux, Pneumonia, Thyroid Disorder Additional Past Medical History / Comment(s): 06/09/17-pt stated sleeping 18-20 hours per day for a week, sob when up, low grade fever at night, cardenas, general aches. other pmh:anemia, "was tesed for factor 5 d/t family hx- was neg", occ vertigo, blind rt eye since childhood, lt eye macular pucker.hiatal hernia,bipolar, ptsd. Last Myocardial Infarction Date:: 2017 History of Any Multi-Drug Resistant Organisms: None Reported Past Surgical History: Appendectomy, Section, Hysterectomy, Tonsillectomy Additional Past Surgical History / Comment(s): rt radial nerve release, egd Past Anesthesia/Blood Transfusion Reactions: No Reported Reaction Additional Past Anesthesia/Blood Transfusion Reaction / Comment(s): HX OF BLOOD TRANSFUSIONS- NO REACTION. Date of Last Stent Placement:: 2017 Smoking Status: Former smoker - Past Family History Mother Family Medical History: Deep Vein Thrombosis (DVT) Additional Family Medical History / Comment(s): at age 42 from blood clot. Father Family Medical History: Congestive Heart Failure (CHF), CVA/TIA Brother(s) Family Medical History: CVA/TIA, Deep Vein Thrombosis (DVT) Additional Family Medical History / Comment(s): 3 brothers had factor 5 .,2 from strokes Sister(s) Family Medical History: Deep Vein Thrombosis (DVT) Medications and Allergies Home Medications Medication Instructions Recorded Confirmed Type Albuterol Inhaler [Ventolin Hfa 1 - 2 puff INHALATION RT-QID PRN 06/09/17 11/07/18 History Inhaler] DULoxetine HCL [Cymbalta] 60 mg PO HS 06/09/17 11/07/18 History Omeprazole [PriLOSEC] 20 mg PO BID 06/09/17 11/07/18 History Topiramate [Topamax] 50 mg PO DAILY 06/09/17 11/07/18 History Aspirin 81 mg PO HS 09/08/17 11/07/18 History Cyclobenzaprine HCl 10 mg PO TID 09/08/17 11/07/18 History Diazepam [Valium] 2 mg PO BID 09/08/17 11/07/18 History Atorvastatin [Lipitor] 80 mg PO HS #90 tab 09/14/17 11/07/18 Rx Clopidogrel [Plavix] 75 mg PO DAILY #90 tab 09/14/17 11/07/18 Rx Apixaban [Eliquis] 5 mg PO BID 06/30/18 11/07/18 History Fluticasone/Umeclidin/Vilanter 1 puff INHALATION RT-DAILY 06/30/18 11/07/18 History [Trelegy Ellipta 100-62.5-25] Loratadine [Claritin] 10 mg PO DAILY 06/30/18 11/07/18 History Meclizine [Antivert] 25 mg PO TID 06/30/18 11/07/18 History Levothyroxine Sodium [Synthroid] 125 mcg PO DAILY 07/05/18 11/07/18 History Cholecalciferol (Vitamin D3) 1,000 unit PO DAILY 10/27/18 11/07/18 History [Vitamin D3] HYDROcodone/APAP 7.5-325MG [Rebecca 1 tab PO Q6HR PRN 10/27/18 11/07/18 History 7.5-325] Metoprolol Succinate [Toprol Xl] 50 mg PO DAILY 10/27/18 11/07/18 History Allergies Allergy/AdvReac Type Severity Reaction Status Date / Time levofloxacin [From Levaquin] AdvReac TENDONITIS Verified 11/07/18 08:04 Surgical - Exam Vital Signs Temp Pulse Resp BP Pulse Ox 97.5 F L 68 16 108/67 98 11/07/18 08:17 11/07/18 08:17 11/07/18 08:17 11/07/18 08:17 11/07/18 08:17 - General well developed, well nourished, no distress - Eyes PERRL - ENT normal pinna - Neck no masses - Respiratory normal expansion - Cardiovascular Rhythm: regular - Abdomen Abdomen: soft, non tender Assessment and Plan Assessment: GERD. We'll perform laparoscopic Yoselyn fundoplication.
[2018-11-07 09:15] LABS: African American GFR (CKD) >90 (>60 ml/min/1.73 sqM); Anion Gap 9 mmol/L; Blood Urea Nitrogen 19 mg/dL (7-17); Calcium 9.4 mg/dL (8.4-10.2); Carbon Dioxide 24 mmol/L (22-30); Chloride 109 mmol/L (98-107); Glucose 111 mg/dL (74-99); Potassium 4.3 mmol/L (3.5-5.1); Sodium 142 mmol/L (137-145)
[2018-11-07] MEDS ORDERED: VECURONIUM 10 MG VIAL IV ONE (09:26)
[2018-11-07] MEDS ORDERED: PROPOFOL 10 MG/ML 20 ML VIAL IV ONE (09:26)
[2018-11-07] MEDS ORDERED: LIDOCAINE 1% INJ 10MG/ML (20 ML MDV) ONE (09:26)
[2018-11-07] MEDS ORDERED: MIDAZOLAM 2 MG/2 ML VIAL ONE (09:26)
[2018-11-07] MEDS ORDERED: GLYCOPYRROLATE 0.2 MG/ML 2 ML VIAL ONE (09:26)
[2018-11-07] MEDS ORDERED: NEOSTIGMINE 1 MG/ML 10 ML VIAL ONE (09:26)
[2018-11-07] MEDS ORDERED: SUCCINYLCHOLINE CHLORIDE 100 MG/5 ML SYR IV ONE (09:26)
[2018-11-07] MEDS ORDERED: fentaNYL (PF) 50 MCG/ML 2 ML AMP ONE (09:26)
[2018-11-07] MEDS: HYDROmorphone 1 MG/ML 1 ML SYRINGE IVP ONE ×2 (10:53→10:57)
[2018-11-07] MEDS ORDERED: ONDANSETRON 4 MG/2 ML VIAL IVP PRN (11:07)
--- NOTE | 2018-11-07 11:07 | P.OP ---
Date of Procedure: 11/07/18 Preoperative Diagnosis: GERD Postoperative Diagnosis: GERD Procedure(s) Performed: Laparoscopic Yoselyn fundoplication with mesh repair of hiatus Anesthesia: JONATHAN Surgeon: Ovi Ware Estimated Blood Loss (ml): 10 Pathology: none sent Condition: stable Disposition: PACU Description of Procedure: The patient was placed on the operating table in the supine position. She received general anesthesia. She was then placed in dorsal lithotomy position. Her abdomen was prepped and draped in the usual sterile fashion. The skin incision sites were anesthetized with 1% local Xylocaine. The skin was incised in the left periumbilical area with an 11 scalpel. Using a 5 mm blade was trocar under direct visitation the peritoneal cavity was entered. And then insufflated. After adequate insufflation the laparoscope was placed back into the peritoneal cavity. Next a 5 mm trocar was placed in the right epigastric and then the right lateral position. Another 5 mm trochars placed in the left lateral position. Another 5 mm trocar placed in the left epigastric position. And the original left periumbilical trocar was exchanged for a 10 mm trocar. The left lateral lobe liver was retracted. The patient had a large hiatal hernia. Using the Harmonic scissors the crural defect was dissected in the Harmonic scissors were used to dissect the hiatal hernia sac. The fundus of the stomach was completely mobilized by using the Harmonic scissors to divide short gastric vessels. The stomach was reduced into the peritoneal cavity. The crura was dissected with the Harmonic scissors. And then the crural repair was performed using 2-0 Ethibond suture. The [place] bio A mesh was then placed over top of the repair and secured with 2-0 Ethibond suture. Next a 58-Serbian bougie dilator was placed the patient's oral pharynx and into the esophagus into the stomach by the MOLD WASHER. The fundoplication was then performed using 2-0 Ethibond suture. A 360 fundoplication was performed. At this point the dilator was withdrawn. The stomach and esophagus were inspected there is known to any injury to the stomach or esophagus. The abdomen was irrigated there is no bleeding seen. The trochars are withdrawn. Skin was closed interrupted 3-0 Monocryl suture. Dermabond was applied. Patient tolerated procedure well and was sent to recovery in stable condition.
[2018-11-07] MEDS ORDERED: IPRATROPIUM-ALBUTEROL 3 ML NEB INHALATION PRN (12:05)
[2018-11-07] MEDS: D5-0.45% NACL WITH KCL 20MEQ/L 1,000 ML IV SCH ×2 (13:26→18:55)
[2018-11-07] MEDS: METOCLOPRAMIDE 5 MG/ML 2 ML VIAL IVP SCH ×3 (13:27→23:38)
[2018-11-07] MEDS: PANTOPRAZOLE 40 MG/10 ML VIAL IVP SCH (13:27)
--- NOTE | 2018-11-07 14:15 | FL ---
EXAMINATION TYPE: FL esophagus cervic/pharynx DATE OF EXAM: 11/07/2018 LIMITED UGI-ESOPHAGRAM: CLINICAL HISTORY: Hiatal hernia repair today TECHNIQUE: Limited esophagram is performed utilizing 20 oz of Omnipaque 350. A total of 1 minute 47 seconds of fluoroscopic time was utilized during procedure. 15 images are obtained. FINDINGS: The patient swallowed contrast without difficulty. There is marked hesitancy of contrast passing through the lap band. Contrast passes into a small bulb of the stomach. Could this be a portion of the [place] wrap? Delayed images were obtained. Contrast i s within the stomach on the delayed images. Additional fluoroscopic spot imaging is performed at that time. There is no evidence of contrast extravasation to suggest leak. No persistent hiatal hernia is seen. Patient remains asymptomatic. IMPRESSION: 1. Marked hesitancy of contrast passing to the level of lap band into the stomach. 2. There appears be some contrast within the proximal stomach which may not spill easily into the mid to distal stomach. It is unclear if this is related to the esophageal wrap, Richmond fundoplication.
[2018-11-07] MEDS: HYDROmorphone 1 MG/ML 1 ML SYRINGE IVP PRN ×3 (14:55→23:40)
[2018-11-07] MEDS: HEPARIN SODIUM,PORCINE 5,000 UNIT/ML 1 ML VIAL SQ SCH ×2 (16:26→23:38)
[2018-11-07] MEDS: IPRATROPIUM-ALBUTEROL 3 ML NEB INHALATION SCH ×2 (16:49→21:07)
[2018-11-07] MEDS: SYMBICORT 80-4.5 MCG INHALER INHALATION SCH ×2 (21:07→21:08)
[2018-11-08] MEDS: HYDROmorphone 1 MG/ML 1 ML SYRINGE IVP PRN ×2 (04:41→09:24)
[2018-11-08] MEDS ORDERED: LEVOTHYROXINE 125 MCG TAB PO SCH (06:30)
[2018-11-08] MEDS: METOCLOPRAMIDE 5 MG/ML 2 ML VIAL IVP SCH ×2 (06:37→11:29)
[2018-11-08] MEDS: D5-0.45% NACL WITH KCL 20MEQ/L 1,000 ML IV SCH ×2 (06:37→09:27)
[2018-11-08] MEDS: IPRATROPIUM-ALBUTEROL 3 ML NEB INHALATION SCH ×3 (07:56→16:25)
[2018-11-08] MEDS: SYMBICORT 80-4.5 MCG INHALER INHALATION SCH (07:57)
[2018-11-08] MEDS ORDERED: ACETAMINOPHEN TAB 325 MG TAB PO PRN (08:04)
[2018-11-08] MEDS ORDERED: CLOPIDOGREL 75 MG TAB PO SCH (09:00)
[2018-11-08] MEDS ORDERED: METOPROLOL SUCCINATE (ER) 50 MG TAB.ER.24H PO SCH (09:00)
[2018-11-08] MEDS ORDERED: APIXABAN 5 MG TAB PO SCH (09:00)
[2018-11-08] MEDS: PANTOPRAZOLE 40 MG/10 ML VIAL IVP SCH (09:33)
--- NOTE | 2018-11-08 10:27 | P.CONS ---
History of Present Illness - Reason for Consult Consult date: 11/07/18 medical management COPD,Hypothyroid, Bipolar Requesting physician: Ovi Ware - Chief Complaint GERD,Esophagitis - History of Present Illness This is a 63-year-old female with history of COPD, gastroesophageal reflux disease, hypothyroidism, bipolar, PTSD, and multiple other medical issues. Recent EGD reporting esophagitis, status post elective [place] fundoplication. Tolerated procedure well. Vital signs stable. No nausea or vomiting. [place] Clear liquid diet scheduled for dinner. Denies chest pain, palpitations or shortness of breath. Review of Systems .ROS Statement: Those systems with pertinent positive or pertinent negative responses have been documented in the HPI. ROS Other: All systems not noted in ROS Statement are negative. Past Medical History Past Medical History: COPD, GERD/Reflux, Pneumonia, Thyroid Disorder Additional Past Medical History / Comment(s): 06/09/17-pt stated sleeping 18-20 hours per day for a week, sob when up, low grade fever at night, cardenas, general aches. other pmh:anemia, "was tesed for factor 5 d/t family hx- was neg", occ vertigo, blind rt eye since childhood, lt eye macular pucker.hiatal hernia,bipolar, ptsd. Last Myocardial Infarction Date:: 2017 History of Any Multi-Drug Resistant Organisms: None Reported Past Surgical History: Appendectomy, Section, Hysterectomy, Tonsillect ellie Additional Past Surgical History / Comment(s): rt radial nerve release, egd Past Anesthesia/Blood Transfusion Reactions: No Reported Reaction Additional Past Anesthesia/Blood Transfusion Reaction / Comm: HX OF BLOOD TRANS FUSIONS- NO REACTION. Date of Last Stent Placement:: 2017 Smoking Status: Former smoker - Past Family History Mother Family Medical History: Deep Vein Thrombosis (DVT) Additional Family Medical History / Comment(s): at age 42 from blood clot. Father Family Medical History: Congestive Heart Failure (CHF), CVA/TIA Brother(s) Family Medical History: CVA/TIA, Deep Vein Thrombosis (DVT) Additional Family Medical History / Comment(s): 3 brothers had factor 5 .,2 from strokes Sister(s) Family Medical History: Deep Vein Thrombosis (DVT) Medications and Allergies Home Medications Medication Instructions Recorded Confirmed Type Albuterol Inhaler [Ventolin Hfa 1 - 2 puff INHALATION RT-QID PRN 06/09/17 11/07/18 History Inhaler] DULoxetine HCL [Cymbalta] 60 mg PO HS 06/09/17 11/07/18 History Omeprazole [PriLOSEC] 20 mg PO BID 06/09/17 11/07/18 History Topiramate [Topamax] 50 mg PO DAILY 06/09/17 11/07/18 History Aspirin 81 mg PO HS 09/08/17 11/07/18 History Cyclobenzaprine HCl 10 mg PO TID 09/08/17 11/07/18 History Diazepam [Valium] 2 mg PO BID 09/08/17 11/07/18 History Atorvastatin [Lipitor] 80 mg PO HS #90 tab 09/14/17 11/07/18 Rx Clopidogrel [Plavix] 75 mg PO DAILY #90 tab 09/14/17 11/07/18 Rx Apixaban [Eliquis] 5 mg PO BID 06/30/18 11/07/18 History Fluticasone/Umeclidin/Vilanter 1 puff INHALATION RT-DAILY 06/30/18 11/07/18 History [Trelegy Ellipta 100-62.5-25] Loratadine [Claritin] 10 mg PO DAILY 06/30/18 11/07/18 History Meclizine [Antivert] 25 mg PO TID 06/30/18 11/07/18 History Levothyroxine Sodium [Synthroid] 125 mcg PO DAILY 07/05/18 11/07/18 History Cholecalciferol (Vitamin D3) 1,000 unit PO DAILY 10/27/18 11/07/18 History [Vitamin D3] HYDROcodone/APAP 7.5-325MG [[place] 1 tab PO Q6HR PRN 10/27/18 11/07/18 History 7.5-325] Metoprolol Succinate [Toprol Xl] 50 mg PO DAILY 10/27/18 11/07/18 History Allergies Allergy/AdvReac Type Severity Reaction Status Date / Time levofloxacin [From Levaquin] AdvReac TENDONITIS Verified 11/07/18 12:25 Physical Exam Vitals: Vital Signs Temp Pulse Pulse Resp BP Pulse Ox 11/07/18 11:30 60 18 134/72 96 11/07/18 11:15 58 L 16 138/69 96 11/07/18 11:00 55 L 16 126/72 96 11/07/18 10:48 64 16 149/85 93 L 11/07/18 10:42 97.5 F L 69 16 170/88 95 11/07/18 08:17 97.5 F L 68 16 108/67 98 Intake and Output 11/06/18 11/07/18 11/07/18 22:59 06:59 14:59 Intake Total 800 Output Total 10 Balance 790 Intake: IV 800 Output: Estimated Blood Loss 10 VITAL SIGNS: As above GENERAL: Sitting up in bed, no acute distress HEENT: Conjunctivae normal. Oral mucosa dry NECK: No JVD. No thyroid enlargement. No LNs CARDIOVASCULAR: S1, S2 regular. No murmur RESPIRATION: Breath sounds diminished in the bases. No rhonchi or crackles. No bronchial breathing. ABDOMEN: Soft, status post surgery, hypoactive bowel sound LEGS: No edema. no swelling PSYCHIATRY: Alert and oriented X3, mood and affect normal. NERVOUS SYSTEM: Cranial N 2-12 grossly normal. Moves all 4 limbs. Diffuse w eakness No focal deficits. Strength and sensation grossly intact. Skin: no lesions, no rash Lymphatic system. No LN neck axilla or groin. Results CBC & Chem 7: 11/07/18 08:04 Labs: Abnormal Lab Results - Last 24 Hours (Table) 11/07/18 Range/Units 08:04 Chloride 109 H (98-107) mmol/L BUN 19 H (7-17) mg/dL Glucose 111 H (74-99) mg/dL Assessment and Plan Assessment: -Status post [place] fundoplication in a patient with significant history of gastroesophageal reflux disease, recent EGD reporting reflux esophagitis -COPD, stable -Hypothyroidism -Bipolar -PTSD Plan:Plan: Continue on current medication regime ,monitoring and symptomatic treatment. Home meds have been reviewed and resumed accordingly . Pain management, diet as per surgery. Aggressive pulmonary toileting, incentive spirometer ordered. GI and DVT prophylaxis in place. Aspirin, Eliquis,Plavix to be resumed tomorrow, pending surgery clearance. Thank you Dr. Ware for allowing us to participate in the care of this pleasant lady. Further recommendations to follow. The impression and plan of care has been dictated as directed. Dr.: I performed a history and examination of this patient, discussed the same with the dictator. I agree with the dictator's note ,documented as a scribe. Any additional findings or plans will be noted.
[2018-11-08] MEDS ORDERED: HYDROcodone/APAP 15 ML SOLUTION PO PRN (10:28)
[2018-11-08 11:23] VITALS: BMI 26.6
[2018-11-08 11:39] VITALS: BP 116/72; RESP 16; TEMP 99.2
[2018-11-08 11:56] VITALS: PULSE 62
--- NOTE | 2018-11-08 12:05 | P.PN ---
Subjective Progress Note Date: 11/08/18 This is a 63-year-old female with history of COPD, gastroesophageal reflux disease, hypothyroidism, bipolar, PTSD, and multiple other medical issues. Recent EGD reporting esophagitis, status post elective [place] fundoplication. Tolerated procedure well. Vital signs stable. No nausea or vomiting. [place] Clear liquid diet scheduled for dinner. Denies chest pain, palpitations or shortness of breath. 11/08/2018 tolerating [place] clear liquids with no nausea vomiting. Passing flatus. Pain controlled. Maintaining O2 sats in the mid 90s on 2 L nasal cannula. Denies chest pain, palpitations or increasing shortness of breath. Cleared by surgery for discharge. Objective - Vital Signs Vital signs: Vital Signs Temp 99.2 F 11/08/18 11:38 Pulse 57 L 11/08/18 11:44 Resp 16 11/08/18 11:44 BP 116/72 11/08/18 11:38 Pulse Ox 95 11/08/18 11:38 Intake & Output 11/07/18 11/08/18 11/08/18 18:59 06:59 18:59 Intake Total 800 580 Output Total 10 Balance 790 580 Weight 77.111 kg Intake: IV 800 Oral 580 Output: Estimated Blood Loss 10 Other: Voiding Method Toilet # Voids 1 1 - Exam VITAL SIGNS: As above GENERAL: Sitting up in bed, no acute distress HEENT: Conjunctivae normal. Oral mucosa dry NECK: No JVD. No thyroid enlargement. No LNs CARDIOVASCULAR: S1, S2 regular. No murmur RESPIRATION: Breath sounds diminished in the bases. No rhonchi or crackles. No bronchial breathing. ABDOMEN: Soft, status post surgery, hypoactive bowel sounds LEGS: No edema. no swelling PSYCHIATRY: Alert and oriented X3, mood and affect normal. NERVOUS SYSTEM: Cranial N 2-12 grossly normal. Moves all 4 limbs. No focal d eficits. Strength and sensation grossly intact. Skin: no lesions, no rash Lymphatic system. No LN neck axilla or groin. - Labs CBC & Chem 7: 11/07/18 08:04 Assessment and Plan Assessment: -Status post [place] fundoplication in a patient with significant history of gastroesophageal reflux disease, recent EGD reporting reflux esophagitis -Acute hypoxic respiratory failure, O2 being arranged for home. -COPD, stable -Hypothyroidism -Bipolar -PTSD Plan:Plan: Continue on current medication regime ,monitoring and symptomatic treatment. Significant clinical improvement. Patient is being discharged home today as per surgery .follow-up PCP in 1 week. Oxygen being Arranged at PCP's office for discharge;-case management to verify.Pain management, diet as per surgery. Continue with aggressive pulmonary toileting, incentive spirometer as ordered. Aspirin, Eliquis,Plavix have been resumed. Thank you Dr. Ware for allowing us to participate in the care of this pleasant lady. The impression and plan of care has been dictated as directed. : I performed a history and examination of this patient, discussed the same with the dictator. I agree with the dictator's note ,documented as a scribe. Any additional findings or plans will be noted.
--- NOTE | 2018-11-08 12:15 | P.DS ---
Providers Expected date of discharge: 11/08/18 Attending physician: Ovi Ware Consults: 11/07/18 11:07 Consult Physician Routine Consulting Provider: Timothy Fountain Reason/Comments: Medical management Do you want consulting provider notified?: Yes Primary care physician: Timothy Fountain [facility] Course: 63-year-old female who underwent laparoscopic Yoselyn fundoplication. Patient is doing well postoperatively without any immediate complications. She is tolerating clear liquid diet. Vital signs have been stable. Esophagram negative for leak or obstruction. She is stable for discharge home today. Please see EMR for further hospital course details. Discharge diagnosis 1. GERD, status post Laparoscopic Yoselyn fundoplication Nurse practitioner note has been reviewed by physician. Signing provider agrees with the documented findings, assessment, and plan of care. Patient Condition at Discharge: Stable Plan - Discharge Summary Discharge Rx Participant: Yes New Discharge Prescriptions: New HYDROcodone/APAP [[place] Elixir 7.5-325Mg/15Ml] 15 ml PO Q6HR PRN 3 Days #180 ml PRN Reason: Pain No Action Omeprazole [PriLOSEC] 20 mg PO BID DULoxetine HCL [Cymbalta] 60 mg PO HS Albuterol Inhaler [Ventolin Hfa Inhaler] 1 - 2 puff INHALATION RT-QID PRN PRN Reason: Shortness Of Breath Topiramate [Topamax] 50 mg PO DAILY Aspirin 81 mg PO HS Diazepam [Valium] 2 mg PO BID Cyclobenzaprine HCl 10 mg PO TID Atorvastatin [Lipitor] 80 mg PO HS #90 tab Clopidogrel [Plavix] 75 mg PO DAILY #90 tab Meclizine [Antivert] 25 mg PO TID Loratadine [Claritin] 10 mg PO DAILY Apixaban [Eliquis] 5 mg PO BID Fluticasone/Umeclidin/Vilanter [Trelegy Ellipta 100-62.5-25] 1 puff INHALATION RT-DAILY Levothyroxine Sodium [Synthroid] 125 mcg PO DAILY HYDROcodone/APAP 7.5-325MG [[place] 7.5-325] 1 tab PO Q6HR PRN PRN Reason: Pain Metoprolol Succinate [Toprol Xl] 50 mg PO DAILY Cholecalciferol (Vitamin D3) [Vitamin D3] 1,000 unit PO DAILY Discharge Medication List Albuterol Inhaler [Ventolin Hfa Inhaler] 1 - 2 puff INHALATION RT-QID PRN 06/09/17 [History] DULoxetine HCL [Cymbalta] 60 mg PO HS 06/09/17 [History] Omeprazole [PriLOSEC] 20 mg PO BID 06/09/17 [History] Topiramate [Topamax] 50 mg PO DAILY 06/09/17 [History] Aspirin 81 mg PO HS 09/08/17 [History] Cyclobenzaprine HCl 10 mg PO TID 09/08/17 [History] Diazepam [Valium] 2 mg PO BID 09/08/17 [History] Atorvastatin [Lipitor] 80 mg PO HS #90 tab 09/14/17 [Rx] Clopidogrel [Plavix] 75 mg PO DAILY #90 tab 09/14/17 [Rx] Apixaban [Eliquis] 5 mg PO BID 06/30/18 [History] Fluticasone/Umeclidin/Vilanter [Trelegy Ellipta 100-62.5-25] 1 puff INHALATION RT-DAILY 06/30/18 [History] Loratadine [Claritin] 10 mg PO DAILY 06/30/18 [History] Meclizine [Antivert] 25 mg PO TID 06/30/18 [History] Levothyroxine Sodium [Synthroid] 125 mcg PO DAILY 07/05/18 [History] Cholecalciferol (Vitamin D3) [Vitamin D3] 1,000 unit PO DAILY 10/27/18 [History] HYDROcodone/APAP 7.5-325MG [[place] 7.5-325] 1 tab PO Q6HR PRN 10/27/18 [History] Metoprolol Succinate [Toprol Xl] 50 mg PO DAILY 10/27/18 [History] HYDROcodone/APAP [[place] Elixir 7.5-325Mg/15Ml] 15 ml PO Q6HR PRN 3 Days #180 ml 11/08/18 [Rx] Follow up Appointment(s)/Referral(s): Timothy Fountain MD [Primary Care Provider] - 1 Week Ovi Ware MD [STAFF PHYSICIAN] - 1 Week Patient Instructions/Handouts: *Surgery [facility] - ([facility]) Lap Yoselyn Fundiplication Post-Op Instructions, Hydromorphone (By injection), Pain Management (ED), Full Liquid Diet (DC), Fundoplication in Adults (DC) Activity/Diet/Wound Care/Special Instructions: No housework, no driving, no tub baths, no pools, no ponds, no swimming. Activity as tolerated, rest as needed. Leave the surgical glue on your incisions in place, do not pick at incisions. Call Dr Ware if you develop a fever, chills, increase in pain, difficulty in swallowing, or if you have any other concerns or questions. Full liquid diet for two weeks
[2018-11-08] MEDS ORDERED: ASPIRIN 81 MG PO SCH (21:00)
== END 2018-11-08 16:35 | disposition home or self-care (01) ==
LOC: OR 07:21 → 6PED 10:52 → OR 11-08 16:35
PROVIDERS: ATTEND Surgery
DX: K21.0 Gastro-esophageal reflux disease with esophagitis (principal); K44.9 Diaphragmatic hernia without obstruction or gangrene; J96.01 Acute respiratory failure with hypoxia; I25.2 Old myocardial infarction; J44.9 Chronic obstructive pulmonary disease, unspecified; Z88.1 Allergy status to other antibiotic agents; E03.9 Hypothyroidism, unspecified; F31.9 Bipolar disorder, unspecified; Z87.891 Personal history of nicotine dependence; Z82.3 Family history of stroke; Z82.49 Family history of ischemic heart disease and other diseases of the circulatory system; Z79.890 Hormone replacement therapy; Z79.891 Long term (current) use of opiate analgesic; Z79.899 Other long term (current) drug therapy; Z79.01 Long term (current) use of anticoagulants; Z79.82 Long term (current) use of aspirin
CPT/HCPCS: 94640 ×4; 94760 ×2; 80048; 74210; 43280; C1781; J2250; J1644; J1100; J2710; J2765 ×2; J2405; J2001; J3010; J1170 ×2; J0330; J2704; C9113 ×2; J0690; Q9967; 36415; 86850; 86900; 86901

== ENCOUNTER → 2019-07-08 | Outpatient (CLI) | payer MEDICARE, OTHER ==
--- NOTE | 2019-07-08 13:50 | NM ---
EXAMINATION TYPE: NM hepatobiliary w EF DATE OF EXAM: 07/08/2019 COMPARISON: NONE HISTORY: Right upper quadrant pain. TECHNIQUE: After the intravenous administration of 4.66 mCi Tc 99m Mebrofenin hepatobiliary scintigra phy is performed. Immediate images post injection. FINDINGS: There is satisfactory initial accumulation of tracer by the liver. The gallbladder is visualized wit hin 20 minutes. The small bowel activity is noted within 30 minutes. At one hour 8 ounces of oral e nsure plus is given to mimic CCK and gallbladder ejection fraction is calculated at 83 %, not diminis hed from the normal range. Therefore there is no scintigraphic evidence of cystic or common bile pavan t obstruction to suggest acute cholecystitis or gallbladder hypokinesia. IMPRESSION: Ejection fraction is 83% not diminished from the normal range.
== END | disposition home or self-care (01) ==
LOC: RADNMMAIN 11:43
PROVIDERS: ATTEND Family Medicine
DX: R10.11 Right upper quadrant pain (principal)
CPT/HCPCS: 78226; A9537

== ENCOUNTER 2019-08-28 09:15 | Observation (INO) | payer MEDICARE, OTHER ==
[2019-08-28] MEDS ORDERED: SODIUM CHLORIDE 0.9% 500 ML 500 ML IV STA (09:47)
[2019-08-28 09:57] LABS: Basophils # (A) 0.1 k/uL (0-0.2); Basophils % (A) 1 %; Eosinophils # (A) 0.2 k/uL (0-0.7); Eosinophils % (A) 2 %; HCT 44.6 % (34.0-46.0); HGB 14.5 gm/dL (11.4-16.0); Lymphocytes # (A) 2.6 k/uL (1.0-4.8); Lymphocytes % (A) 28 %; MCH 30.7 pg (25.0-35.0); MCHC 32.4 g/dL (31.0-37.0); MCV 94.7 fL (80.0-100.0); Mean Platelet Volume 7.5; Monocytes # (A) 0.5 k/uL (0-1.0); Monocytes % (A) 5 %; Neutrophils # (A) 5.6 k/uL (1.3-7.7); Neutrophils % (A) 61 %; Platelet Count 253 k/uL (150-450); RBC 4.71 m/uL (3.80-5.40); RDW 13.7 % (11.5-15.5); WBC 9.1 k/uL (3.8-10.6)
--- NOTE | 2019-08-28 09:59 | XR ---
EXAMINATION TYPE: XR KUB DATE OF EXAM: 08/28/2019 9:53 AM CLINICAL HISTORY: Abdominal pain TECHNIQUE: Single upright image of the abdomen is obtained. COMPARISON: None. FINDINGS: Multiple colonic air-fluid levels are seen. No dilated large or small bowel. Few scattered small bowel air-fluid levels are also seen. Inferior vena cava filter spans the right lateral aspect of the L2-L3 vertebral bodies. Lung bases are well aerated other than left basilar atelectasis. No pn eumoperitoneum seen. Degenerative changes of the spine. IMPRESSION: Colonic and small bowel air-fluid levels suggest ileus with no dilated bowel to suggest o bstruction. No pneumoperitoneum
[2019-08-28 10:08] LABS: Albumin 4.4 g/dL (3.5-5.0); Calcium 9.8 mg/dL (8.4-10.2); Potassium 4.3 mmol/L (3.5-5.1); Total Bilirubin 0.3 mg/dL (0.2-1.3); Total Protein 7.5 g/dL (6.3-8.2)
[2019-08-28] MEDS ORDERED: NALOXONE 0.4 MG/ML 1 ML VIAL IV PRN (10:23)
[2019-08-28] MEDS ORDERED: MORPHINE SULFATE 4 MG/ML SYRINGE IV PRN (10:23)
--- NOTE | 2019-08-28 10:25 | ED ---
General Adult HPI - General Chief complaint: Abdominal Pain Stated complaint: gallbladder pain Time Seen by Provider: 08/28/19 09:24 Source: patient, RN notes reviewed, old records reviewed Mode of arrival: ambulatory Limitations: no limitations - History of Present Illness Initial comments: 64-year-old female patient with past history significant for COPD, GERD, gallbladder issues presents to ED for chief complaint of abdominal pain, diarrhea. Patient reports that since April she's been having issues with her gallbladder. Reports after eating she has pain in the right upper quadrant. Also reports that she sometimes has nausea and vomiting. Patient does report that she has almost constant diarrhea. Patient reports that she is. Have her gallbladder removed by Dr. Herman in august however it was cancelled due to coronavirus. Patient reportedly called his office today and was instructed to come the ER and he will admit her to the hospital. Systemic: Pt denies fatigue, fever/chills, rash. Pt denies weakness, night sweats, weight loss. Neuro: Pt denies headache, visual disturbances, syncope or pre-syncope. HEENT: Pt denies ocular discharge or irritation, otalgia, rhinorrhea, pharyngitis or notable lymphadenopathy. Cardiopulmonary: Pt denies chest pain, SOB, heart palpitations, dyspnea on exertion. : Pt denies dysuria, burning w/ urination, frequency/urgency. Denies new onset urinary or bowel incontinence. MSK: Pt denies myalgia, loss of strength or function in extremities. Neuro: Pt denies new onset weakness, paresthesias. - Related Data Home Medications Medication Instructions Recorded Confirmed Albuterol Inhaler (Bulk) [Ventolin 1 - 2 puff INHALATION RT-QID PRN 06/09/17 11/07/18 Hfa Inhaler (Bulk)] DULoxetine HCL [Cymbalta] 60 mg PO HS 06/09/17 11/07/18 Omeprazole [PriLOSEC] 20 mg PO BID 06/09/17 11/07/18 Topiramate [Topamax] 50 mg PO DAILY 06/09/17 11/07/18 Aspirin 81 mg PO HS 09/08/17 11/07/18 Cyclobenzaprine HCl 10 mg PO TID 09/08/17 11/07/18 Diazepam [Valium] 2 mg PO BID 09/08/17 11/07/18 Apixaban [Eliquis] 5 mg PO BID 06/30/18 11/07/18 Fluticasone/Umeclidin/Vilanter 1 puff INHALATION RT-DAILY 06/30/18 11/07/18 [Trelegy Ellipta 100-62.5-25] Loratadine [Claritin] 10 mg PO DAILY 06/30/18 11/07/18 Meclizine [Antivert] 25 mg PO TID 06/30/18 11/07/18 Levothyroxine Sodium [Synthroid] 125 mcg PO DAILY 07/05/18 11/07/18 Cholecalciferol (Vitamin D3) 1,000 unit PO DAILY 10/27/18 11/07/18 [Vitamin D3] HYDROcodone/APAP 7.5-325MG [[place] 1 tab PO Q6HR PRN 10/27/18 11/07/18 7.5-325] Metoprolol Succinate [Toprol Xl] 50 mg PO DAILY 10/27/18 11/07/18 Previous Rx's Medication Instructions Recorded Atorvastatin [Lipitor] 80 mg PO HS #90 tab 09/14/17 Clopidogrel [Plavix] 75 mg PO DAILY #90 tab 09/14/17 HYDROcodone/APAP [[place] Elixir 15 ml PO Q6HR PRN 3 Days #180 ml 11/08/18 7.5-325Mg/15Ml] Allergies Allergy/AdvReac Type Severity Reaction Status Date / Time levofloxacin [From Levaquin] AdvReac TENDONITIS Verified 08/28/19 09:22 Review of Systems ROS Statement: Those systems with pertinent positive or pertinent negative responses have been documented in the HPI. ROS Other: All systems not noted in ROS Statement are negative. Past Medical History Past Medical History: COPD, GERD/Reflux, Pneumonia, Thyroid Disorder Additional Past Medical History / Comment(s): pmh:anemia, , occ vertigo, blind rt eye since childhood, lt eye macular pucker.hiatal hernia,bipolar, ptsd. Last Myocardial Infarction Date:: 2017 History of Any Multi-Drug Resistant Organisms: None Reported Past Surgical History: Appendectomy, Section, Hernia Repair, Hysterectomy, Orthopedic Surgery, Tonsillectomy Additional Past Surgical History / Comment(s): rt radial nerve release, egd, rt shoulder repl Past Anesthesia/Blood Transfusion Reactions: No Reported Reaction Date of Last Stent Placement:: 2017 Past Psychological History: Bipolar, PTSD Smoking Status: Former smoker Past Alcohol Use History: None Reported Past Drug Use History: None Reported - Past Family History Mother Family Medical History: Deep Vein Thrombosis (DVT) Additional Family Medical History / Comment(s): at age 42 from blood clot. Father Family Medical History: Congestive Heart Failure (CHF), CVA/TIA Brother(s) Family Medical History: CVA/TIA, Deep Vein Thrombosis (DVT) Additional Family Medical History / Comment(s): 3 brothers had factor 5 .,2 from strokes Sister(s) Family Medical History: Deep Vein Thrombosis (DVT) General Exam - General Exam Comments Initial Comments: Constitutional: NAD, AOX3, Pt has pleasant affect. HEENT: NC/AT, trachea midline, neck supple, no lymphadenopathy. Posterior pharynx non erythematous, without exudates. External ears appear normal, without discharge. Mucous membranes moist. Eyes PERRLA, EOM intact. There is no scleral icterus. No pallor noted. Cardiopulmonary: RRR, no murmurs, rubs or gallops, no JVD noted. Lungs CTAB in anterior and posterior thompson. No peripheral edema. Abdominal exam: Abdomen soft and non-distended. Abdomen very mild tenderness in right upper quadrant region. Abdul sign is negative.. Bowel sounds active in LLQ. No hepatosplenomegaly. No ecchymosis Neuro: CN II-XII grossly intact. No nuchal rigidity. No raccon eyes, no doyle sign, no hemotympanum. No cervical spinal tenderness. MSK: No posterior calf tenderness bilaterally, homans sign negative bilaterally. Posterior tibialis and radial pulse +2 bilaterally. Sensation intact in upper and lower extremities. Full active ROM in upper and lower extremities, 5/5 stregnth. Limitations: no limitations Course Vital Signs 08/28/19 09:18 Temperature 98.2 F Pulse Rate 79 Respiratory 18 Rate Blood Pressure 119/77 O2 Sat by Pulse 97 Oximetry Medical Decision Making - Medical Decision Making 64-year-old female patient does ED for evaluation of abdominal pain which has been going on since April. Was supposed to reportedly have cholecystectomy that was canceled. Was instructed to come to the hospital for admission by general surgeon. Both under stable, afebrile. Physical exam showed mild right upper quadrant tenderness. CBC noncompressive. CMP revealed mild transam initis. Patient administered 1 L normal saline. KUB displayed colonic and small bowel air-fluid levels or significant ileus. Case discussed with Dr. herman who will admit patient to hospital and did not recommend any further intervention or evaluation. Case discussed with Dr. Bonilla. - Lab Data Result diagrams: 08/28/19 09:40 08/28/19 09:40 Lab Results 08/28/19 08/28/19 08/28/19 Range/Units 09:40 09:40 09:40 WBC 9.1 (3.8-10.6) k/uL RBC 4.71 (3.80-5.40) m/uL Hgb 14.5 (11.4-16.0) gm/dL Hct 44.6 (34.0-46.0) % MCV 94.7 (80.0-100.0) fL MCH 30.7 (25.0-35.0) pg MCHC 32.4 (31.0-37.0) g/dL RDW 13.7 (11.5-15.5) % Plt Count 253 (150-450) k/uL Neutrophils % 61 % Lymphocytes % 28 % Monocytes % 5 % Eosinophils % 2 % Basophils % 1 % Neutrophils # 5.6 (1.3-7.7) k/uL Lymphocytes # 2.6 (1.0-4.8) k/uL Monocytes # 0.5 (0-1.0) k/uL Eosinophils # 0.2 (0-0.7) k/uL Basophils # 0.1 (0-0.2) k/uL Sodium 140 (137-145) mmol/L Potassium 4.3 (3.5-5.1) mmol/L Chloride 109 H (98-107) mmol/L Carbon Dioxide 19 L (22-30) mmol/L Anion Gap 12 mmol/L BUN 22 H (7-17) mg/dL Creatinine 0.89 (0.52-1.04) mg/dL Est GFR (CKD-EPI)AfAm 79 (>60 ml/min/1.73 sqM) Est GFR (CKD-EPI)NonAf 68 (>60 ml/min/1.73 sqM) Glucose 112 H (74-99) mg/dL Plasma Lactic Acid Parth 1.2 (0.7-2.0) mmol/L Calcium 9.8 (8.4-10.2) mg/dL Total Bilirubin 0.3 (0.2-1.3) mg/dL AST 63 H (14-36) U/L ALT 73 H (4-34) U/L Alkaline Phosphatase 135 H (38-126) U/L Total Protein 7.5 (6.3-8.2) g/dL Albumin 4.4 (3.5-5.0) g/dL Lipase 185 (23-300) U/L Disposition Clinical Impression: Abdominal pain Disposition: ADMITTED IP TO THIS HOSP Condition: Serious Is patient prescribed a controlled substance at d/c from ED?: No Referrals: Timothy Fountain MD [Primary Care Provider] - 1-2 days
[2019-08-28] MEDS ORDERED: ONDANSETRON 4 MG/2 ML VIAL IVP PRN (11:23)
[2019-08-28 11:57] LABS: Appearance,Urine Clear (Clear); Bilirubin,Urine Negative (Negative); Blood,Urine Negative (Negative); Color,Urine Yellow; Glucose,Urine (UA) Negative (Negative); Ketones,Urine Negative (Negative); Leukocyte Esterase,Urine Negative (Negative); Nitrite,Urine Negative (Negative); Protein,Urine Negative (Negative); Specific Gravity,Urine 1.024 (1.001-1.035); Urobilinogen,Urine <2.0 mg/dL (<2.0)
[2019-08-28] MEDS ORDERED: ALBUTEROL NEBULIZED 2.5 MG/3 ML INHALATION PRN (13:11)
--- NOTE | 2019-08-28 14:49 | P.GSHP ---
History of Present Illness H&P Date: 08/28/19 Chief Complaint: Abdominal pain CHIEF COMPLAINT: Abdominal pain HISTORY OF PRESENT ILLNESS: 64-year-old female with a known history of chronic cholecystitis to presented to emergency room with abdominal pain. Patient reports she was scheduled to have a cholecystectomy in August 2019 but this was canceled secondary to the coronavirus pandemic. She reports pain localized to the right upper quadrant after eating. PAST MEDICAL HISTORY: See list. PAST SURGICAL HISTORY: See list. SOCIAL HISTORY: No illicit drug use. REVIEW OF SYSTEMS: CONSTITUTIONAL: Denies fever or chills. HEENT: Denies blurred vision, vision changes, or eye pain. Denies hemoptysis CARDIOVASCULAR: Denies chest pain or pressure. RESPIRATORY: No shortness of breath. GASTROINTESTINAL: Refer to [facility] for pertinent findings HEMATOLOGIC: Denies bleeding disorders. GENITOURINARY: Denies any blood in urine. SKIN: Denies pruitis. Denies rash. PHYSICAL EXAM: VITAL SIGNS: Reviewed. GENERAL: Well-developed in no acute distress. HEENT: No sclera icterus. Extraocular movements grossly intact. Moist buccal mucosa. Head is atraumatic, normocephalic. ABDOMEN: Soft. Nondistended. Mild tenderness with palpation to right upper quadrant. NEUROLOGIC: Alert and oriented. Cranial nerves II through XII grossly intact. LABORATORY DATA: WBC 9.1. Hemoglobin 14.5. Platelet count 253. Bilirubin 0.3. AST 63. ALT 73. Alkaline phosphatase 135. IMAGING: KUB x-ray: Colonic and small bowel air-fluid levels suggesting ileus with no dilated bowel to suggest obstruction. No pneumoperitoneum. ASSESSMENT: 1. Abdominal pain 2. Chronic cholecystitis PLAN: -Consult Dr. Fountain for medical management -Hold Eliquis -Clear liquid diet. NPO at midnight -Patient to undergo lap joshua tomorrow with Dr. Ware Nurse practitioner note has been reviewed by physician. Signing provider agrees with the documented findings, assessment, and plan of care. Past Medical History Past Medical History: COPD, GERD/Reflux, Pneumonia, Thyroid Disorder Additional Past Medical History / Comment(s): pmh:anemia, , occ vertigo, blind rt eye since childhood, lt eye macular pucker.hiatal hernia,bipolar, ptsd. Last Myocardial Infarction Date:: 2017 History of Any Multi-Drug Resistant Organisms: None Reported Past Surgical History: Appendectomy, Section, Hernia Repair, Hysterectomy, Orthopedic Surgery, Tonsillectomy Additional Past Surgical History / Comment(s): rt radial nerve release, egd, rt shoulder repl Past Anesthesia/Blood Transfusion Reactions: No Reported Reaction Date of Last Stent Placement:: 2017 Past Psychological History: Bipolar, PTSD Smoking Status: Former smoker Past Alcohol Use History: None Reported Past Drug Use History: None Reported - Past Family History Mother Family Medical History: Deep Vein Thrombosis (DVT) Additional Family Medical History / Comment(s): at age 42 from blood clot. Father Family Medical History: Congestive Heart Failure (CHF), CVA/TIA Brother(s) Family Medical History: CVA/TIA, Deep Vein Thrombosis (DVT) Additional Family Medical History / Comment(s): 3 brothers had factor 5 .,2 from strokes Sister(s) Family Medical History: Deep Vein Thrombosis (DVT) Medications and Allergies Home Medications Medication Instructions Recorded Confirmed Type Albuterol Inhaler (Bulk) [Ventolin 2 puff INHALATION RT-QID PRN 06/09/17 08/28/19 History Hfa Inhaler (Bulk)] DULoxetine HCL [Cymbalta] 60 mg PO HS 06/09/17 08/28/19 History Omeprazole [PriLOSEC] 20 mg PO HS 06/09/17 08/28/19 History Topiramate [Topamax] 50 mg PO DAILY 06/09/17 08/28/19 History Aspirin 81 mg PO HS 09/08/17 08/28/19 History Cyclobenzaprine HCl 10 mg PO TID 09/08/17 08/28/19 History Diazepam [Valium] 2 mg PO HS 09/08/17 08/28/19 History Atorvastatin [Lipitor] 80 mg PO HS #90 tab 09/14/17 08/28/19 Rx Apixaban [Eliquis] 5 mg PO DIRECTED 06/30/18 08/28/19 History Fluticasone/Umeclidin/Vilanter 1 puff INHALATION RT-DAILY 06/30/18 08/28/19 History [Trelegy Ellipta 100-62.5-25] Meclizine [Antivert] 25 mg PO TID 06/30/18 08/28/19 History Cholecalciferol (Vitamin D3) 1,000 unit PO DAILY 10/27/18 08/28/19 History [Vitamin D3] HYDROcodone/APAP 7.5-325MG [[place] 1 tab PO BID 10/27/18 08/28/19 History 7.5-325] Metoprolol Succinate [Toprol Xl] 50 mg PO DAILY 10/27/18 08/28/19 History Calcium Carbonate [Calcium] 600 mg PO DAILY 08/28/19 08/28/19 History Cholestyramine (with Sugar) 4 gm PO BID 08/28/19 08/28/19 History [Cholestyramine Packet] Dicyclomine [Bentyl] 10 mg PO AC-TID 08/28/19 08/28/19 History Levothyroxine Sodium [Synthroid] 150 mcg PO DAILY 08/28/19 08/28/19 History Montelukast Sodium [Singulair] 10 mg PO DAILY 08/28/19 08/28/19 History rOPINIRole HCL [Requip] 0.5 mg PO TID 08/28/19 08/28/19 History Allergies Allergy/AdvReac Type Severity Reaction Status Date / Time levofloxacin [From Levaquin] AdvReac TENDONITIS Verified 08/28/19 12:31 Surgical - Exam Vital Signs Temp Pulse Resp BP Pulse Ox 98.2 F 79 18 119/77 97 08/28/19 09:18 08/28/19 09:18 08/28/19 09:18 08/28/19 09:18 08/28/19 09:18 Results - Labs 08/28/19 09:40 08/28/19 09:40 Abnormal Lab Results - Last 24 Hours (Table) 08/28/19 Range/Units 09:40 Chloride 109 H (98-107) mmol/L Carbon Dioxide 19 L (22-30) mmol/L BUN 22 H (7-17) mg/dL Glucose 112 H (74-99) mg/dL AST 63 H (14-36) U/L ALT 73 H (4-34) U/L Alkaline Phosphatase 135 H (38-126) U/L Diabetes panel 08/28/19 Range/Units 09:40 Sodium 140 (137-145) mmol/L Potassium 4.3 (3.5-5.1) mmol/L Chloride 109 H (98-107) mmol/L Carbon Dioxide 19 L (22-30) mmol/L BUN 22 H (7-17) mg/dL Creatinine 0.89 (0.52-1.04) mg/dL Glucose 112 H (74-99) mg/dL Calcium 9.8 (8.4-10.2) mg/dL AST 63 H (14-36) U/L ALT 73 H (4-34) U/L Alkaline Phosphatase 135 H (38-126) U/L Total Protein 7.5 (6.3-8.2) g/dL Albumin 4.4 (3.5-5.0) g/dL Calcium panel 08/28/19 Range/Units 09:40 Calcium 9.8 (8.4-10.2) mg/dL Albumin 4.4 (3.5-5.0) g/dL Pituitary panel 08/28/19 Range/Units 09:40 Sodium 140 (137-145) mmol/L Potassium 4.3 (3.5-5.1) mmol/L Chloride 109 H (98-107) mmol/L Carbon Dioxide 19 L (22-30) mmol/L BUN 22 H (7-17) mg/dL Creatinine 0.89 (0.52-1.04) mg/dL Glucose 112 H (74-99) mg/dL Calcium 9.8 (8.4-10.2) mg/dL Adrenal panel 08/28/19 Range/Units 09:40 Sodium 140 (137-145) mmol/L Potassium 4.3 (3.5-5.1) mmol/L Chloride 109 H (98-107) mmol/L Carbon Dioxide 19 L (22-30) mmol/L BUN 22 H (7-17) mg/dL Creatinine 0.89 (0.52-1.04) mg/dL Glucose 112 H (74-99) mg/dL Calcium 9.8 (8.4-10.2) mg/dL Total Bilirubin 0.3 (0.2-1.3) mg/dL AST 63 H (14-36) U/L ALT 73 H (4-34) U/L Alkaline Phosphatase 135 H (38-126) U/L Total Protein 7.5 (6.3-8.2) g/dL Albumin 4.4 (3.5-5.0) g/dL
[2019-08-28] MEDS: DICYCLOMINE 10 MG CAP PO SCH (17:12)
[2019-08-28] MEDS: SODIUM CHLORIDE 0.9% 1,000 ML IV SCH (19:25)
[2019-08-28] MEDS: DULoxetine HCL 60 MG CAPSULE.DR PO SCH (20:26)
[2019-08-28] MEDS: DIAZEPAM 2 MG TAB PO SCH (20:26)
[2019-08-28] MEDS: CHOLESTYRAMINE (WITH SUGAR) 4 GM PACKET PO SCH (20:26)
--- NOTE | 2019-08-29 02:33 | CONS ---
CONSULTATION SUBJECTIVE: A 64-year-old white female admitted with acute right upper quadrant abdominal pain, scheduled for cholecystectomy in the morning, unable to eat food with severe right upper quadrant pain, severe diarrhea. She has history of hypertension, COPD, asthma, GERD, restless legs syndrome, hypercholesterolemia. HOME MEDICINES: Albuterol 2.5 q.i.d., Questran 4 mg b.i.d., Valium 2 mg at night, Bentyl 10 a.c. at bedtime, Cymbalta 60 daily, Toprol-XL 50 daily, Singulair 10 daily, Protonix 40 daily, Requip 0.5 t.i.d. CONDITION: Stable. PHYSICAL EXAMINATION: VITAL SIGNS: Stable, afebrile. CARDIOVASCULAR: S1, S2. LUNGS: Decreased breath sounds x4. HEMATOLOGY: Negative Homans. PSYCH: Fair mood and affect. VASCULAR: Normal dorsalis pedis, posterior tibial, radial pulse. ASSESSMENT: 1. Acute cholecystitis, right upper quadrant pain. 2. Chronic obstructive pulmonary disease. 3. Hypertension. 4. Asthma. 5. Gastroesophageal reflux disease. 6. Restless legs syndrome. Scheduled for surgery in the morning. Check labs. Check EKG. Medically stable for surgery. MMODL / IJN: [id number] /
[2019-08-29] MEDS: SODIUM CHLORIDE 0.9% 1,000 ML IV SCH ×2 (03:00→19:44)
[2019-08-29 07:12] LABS: Albumin 3.4 g/dL (3.5-5.0); Calcium 8.7 mg/dL (8.4-10.2); Potassium 4.1 mmol/L (3.5-5.1); Total Bilirubin 0.4 mg/dL (0.2-1.3); Total Protein 6.2 g/dL (6.3-8.2)
[2019-08-29] MEDS: IPRATROPIUM 0.5 MG/2.5 ML NEBU INHALATION SCH ×4 (07:14→19:40)
[2019-08-29] MEDS: METOPROLOL SUCCINATE (ER) 50 MG TAB.ER.24H PO SCH (07:53)
[2019-08-29] MEDS: PANTOPRAZOLE 40 MG/10 ML VIAL IVP SCH (07:54)
[2019-08-29] MEDS: CHOLESTYRAMINE (WITH SUGAR) 4 GM PACKET PO SCH ×2 (08:00→21:48)
[2019-08-29] MEDS: DICYCLOMINE 10 MG CAP PO SCH ×3 (08:01→17:15)
[2019-08-29] MEDS: MONTELUKAST 10 MG TAB PO SCH (11:01)
[2019-08-29] MEDS: SYMBICORT 80-4.5 MCG INHALER INHALATION SCH ×2 (11:03→19:40)
[2019-08-29] MEDS ORDERED: IV FLUID CONTINUATION 1,000 ML IV ONE (16:02)
[2019-08-29] MEDS ORDERED: ONDANSETRON 4 MG/2 ML VIAL IVP ONE (16:15)
[2019-08-29] MEDS ORDERED: DEXAMETHASONE SOD PHOSPHATE 10 MG/ML 1 ML VIAL IV ONE (16:15)
[2019-08-29] MEDS ORDERED: HEPARIN SODIUM,PORCINE 5,000 UNIT/ML 1 ML VIAL SQ ONE (16:56)
[2019-08-29] MEDS ORDERED: SUCCINYLCHOLINE CHLORIDE 100 MG/5 ML SYR IV ONE (17:16)
[2019-08-29] MEDS ORDERED: NEOSTIGMINE 1 MG/ML 10 ML VIAL ONE (17:16)
[2019-08-29] MEDS ORDERED: ROCURONIUM BROMIDE 10 MG/ML 5 ML VIAL IV ONE (17:16)
[2019-08-29] MEDS ORDERED: GLYCOPYRROLATE 0.2 MG/ML 2 ML VIAL ONE (17:16)
[2019-08-29] MEDS ORDERED: LIDOCAINE 1% INJ 10MG/ML (20 ML MDV) ONE (17:16)
[2019-08-29] MEDS ORDERED: PROPOFOL 10 MG/ML 20 ML VIAL IV ONE (17:16)
[2019-08-29] MEDS ORDERED: MIDAZOLAM 2 MG/2 ML VIAL ONE (17:16)
[2019-08-29] MEDS ORDERED: fentaNYL (PF) 50 MCG/ML 2 ML AMP ONE (17:16)
--- NOTE | 2019-08-29 17:18 | P.PN ---
Subjective Progress Note Date: 08/29/19 This is a 64-year-old male admitted with acute right upper quadrant abdominal pain, scheduled for cholecystectomy today. Persistent right upper quadrant tenderness. Diarrhea subsided. Denies chest pain, palpitations or increased shortness of breath. Afebrile, normal WBC. LFTs improving. Objective - Vital Signs Vital signs: Vital Signs Temp 97.7 F 08/29/19 04:29 Pulse 59 L 08/29/19 08:05 Resp 18 08/29/19 08:05 BP 115/59 08/29/19 04:29 Pulse Ox 95 08/29/19 04:29 Intake & Output 08/28/19 08/29/19 08/29/19 18:59 06:59 18:59 Intake Total 825 Balance 825 Weight 79.379 kg Intake: Intake, IV Titration 825 Amount Sodium Chloride 0.9% 1, 825 000 ml @ 75 mls/hr IV . [id number] JOSE LUIS Rx#:[id number] Other: Voiding Method Toilet Toilet Toilet # Voids 2 1 - Exam PHYSICAL EXAM: VITAL SIGNS: [As above] GENERAL: Sitting up in bed, no acute distress HEENT: Conjunctivae normal. eyes normal. Oral mucosa dry. NECK: No JVD. No thyroid enlargement. No LNs CARDIOVASCULAR: S1, S2 regular.. No murmur RESPIRATION: Breath sounds diminished in the bases. No rhonchi or crackles. No bronchial breathing. ABDOMEN: Soft, right upper quadrant tenderness ,No guarding. no masses palpable. Bowel sounds heard. LEGS: No edema. no swelling PSYCHIATRY: Alert and oriented X3, mood and affect normal. NERVOUS SYSTEM: Cranial N 2-12 grossly normal. Moves all 4 limbs. No focal deficits. Strength and sensation grossly intact. Skin:no rash - Labs CBC & Chem 7: 08/28/19 09:40 08/29/19 05:44 Labs: Abnormal Lab Results - Last 24 Hours (Table) 08/28/19 08/29/19 Range/Units 09:40 05:44 Chloride 109 H 110 H (98-107) mmol/L Carbon Dioxide 19 L (22-30) mmol/L BUN 22 H (7-17) mg/dL Glucose 112 H (74-99) mg/dL AST 63 H (14-36) U/L ALT 73 H 52 H (4-34) U/L Alkaline Phosphatase 135 H (38-126) U/L Total Protein 6.2 L (6.3-8.2) g/dL Albumin 3.4 L (3.5-5.0) g/dL Assessment and Plan Assessment: Acute right upper quadrant abdominal pain accompanied by diarrhea, triggered by eating, acute cholecystitis as per surgical evaluation. COPD, stable Hypertension Plan: Continue on current medication regime ,monitoring and symptomatic treatment. NPO, laparoscopic cholecystectomy pending. Discharge planning in progress for tomorrow. The impression and plan of care has been dictated as directed. : I performed a history and examination of this patient, discussed the same with the dictator. I agree with the dictator's note ,documented as a scribe. Any additional findings or plans will be noted.
[2019-08-29] MEDS ORDERED: BUPIVACAIN-EPI 0.25%-1:200,000 30 ML VIAL SQ ONE (17:37)
[2019-08-29] MEDS ORDERED: SODIUM CHLORIDE 0.9% IV ONE ×2 (17:40)
[2019-08-29] MEDS ORDERED: CEFOXITIN IV ONE ×2 (17:40)
--- NOTE | 2019-08-29 17:52 | P.OP ---
Date of Procedure: 08/29/19 Preoperative Diagnosis: Cholecystitis Postoperative Diagnosis: Cholecystitis Procedure(s) Performed: Laparoscopic cholecystectomy Anesthesia: JONATHAN Surgeon: Ovi Ware Estimated Blood Loss (ml): 5 Pathology: other (Gallbladder) Condition: stable Disposition: PACU Description of Procedure: The patient was placed on the operating table. The patient received a general endotracheal tube anesthesia. The patients abdomen was prepped and draped in the usual sterile fashion. Through an infraumbilical stab incision, the fascia of the anterior abdominal wall was grasped with a pair of Kochers and then the Veress needle was placed in the peritoneal cavity. Position of the Veress needle was confirmed with positive drop test. The abdomen was then insufflated. After adequate insufflation, the 10 mm trocar was placed in the peritoneal cavity. Following this the laparoscope was placed in the peritoneal cavity. The patient was placed in the head-up, right side up position and then a 5 mm trocar was placed in the right lateral and right subcostal position under direct visualization. A 8 mm trocar was placed in the epigastric position. The gallbladder was grasped in the fundus and infundibulum. Traction on the gallbladder was placed in the lateral and the cephalad positions. The triangle of Calot was visualized.. The cystic duct was bluntly dissected until the union of the cystic duct and common bile duct was seen. A critical view of safety was achieved. The cystic duct was then divided and sealed with the Harmonic scissors. A PDS Endoloop was then placed throughout the cystic duct stump. The cystic artery divided and sealed with the Harmonic scissors. The gallbladder was then removed from the liver bed using Harmonic scissors. The gallbladder was then extracted through the epigastric port site. Operative field was checked for any bleeding spots and Harmonic scissors was used to coagulate the liver bed. The abdomen was irrigated. The trocars were removed. The skin was closed using interrupted 3-0 Vicryl suture. Dermabond dressing were applied. The patient tolerated the procedure well.
[2019-08-29] MEDS ORDERED: HYDROmorphone 0.5 MG/0.5 ML SYRINGE IVP ONE ×3 (18:12→18:27)
[2019-08-29] MEDS ORDERED: SODIUM CHLORIDE 0.9% 1,000 ML IV ONE (18:43)
[2019-08-29] MEDS: DULoxetine HCL 60 MG CAPSULE.DR PO SCH (21:47)
[2019-08-29] MEDS: DIAZEPAM 2 MG TAB PO SCH (21:47)
[2019-08-29] MEDS: HYDROmorphone 0.5 MG/0.5 ML SYRINGE IVP PRN (22:45)
[2019-08-30] MEDS: SODIUM CHLORIDE 0.9% 1,000 ML IV SCH (04:07)
[2019-08-30] MEDS: HYDROmorphone 0.5 MG/0.5 ML SYRINGE IVP PRN ×2 (04:15→09:07)
[2019-08-30 05:50] VITALS: RESP 16
[2019-08-30] MEDS: SYMBICORT 80-4.5 MCG INHALER INHALATION SCH (08:28)
[2019-08-30] MEDS: IPRATROPIUM 0.5 MG/2.5 ML NEBU INHALATION SCH ×3 (08:28→15:50)
[2019-08-30] MEDS ORDERED: HYDROcodone/APAP 5-325MG 1 EACH TAB PO PRN (08:41)
[2019-08-30] MEDS: MONTELUKAST 10 MG TAB PO SCH (09:14)
[2019-08-30] MEDS: DICYCLOMINE 10 MG CAP PO SCH ×2 (09:14→13:31)
[2019-08-30] MEDS: METOPROLOL SUCCINATE (ER) 50 MG TAB.ER.24H PO SCH (09:14)
[2019-08-30] MEDS: CHOLESTYRAMINE (WITH SUGAR) 4 GM PACKET PO SCH (09:15)
[2019-08-30] MEDS: PANTOPRAZOLE 40 MG/10 ML VIAL IVP SCH (09:15)
--- NOTE | 2019-08-30 12:26 | P.DS ---
Providers Date of admission: 08/28/19 10:23 Expected date of discharge: 08/30/19 Attending physician: Ovi Ware Consults: 08/28/19 11:21 Consult Physician Routine Consulting Provider: Timothy Fountain Reason/Comments: medical management Do you want consulting provider notified?: Yes [facility] Hospital Course: 64-year-old female with a known history of chronic cholecystitis to presented to emergency room with abdominal pain. Patient reports she was scheduled to have a cholecystectomy in August 2019 but this was canceled secondary to the coronavirus pandemic. She reports pain localized to the right upper quadrant after eating. Patient underwent laparoscopic cholecystectomy with Dr. Ware on 08/29/2019. Patient is doing well postoperatively without any immediate complications. She was deemed stable for discharge home today. Please see EMR for further hospital course details. Discharge Diagnosis: 1. Abdominal pain 2. Chronic cholecystitis Nurse practitioner note has been reviewed by physician. Signing provider agrees with the documented findings, assessment, and plan of care. Patient Condition at Discharge: Stable Plan - Discharge Summary Discharge Rx Participant: No New Discharge Prescriptions: Continue HYDROcodone/APAP 7.5-325MG [Labadie 7.5-325] 1 tab PO BID No Action Omeprazole [PriLOSEC] 20 mg PO HS DULoxetine HCL [Cymbalta] 60 mg PO HS Albuterol Inhaler (Mhu) [Ventolin Hfa Inhaler (Mhu)] 2 puff INHALATION RT-QID PRN PRN Reason: Shortness Of Breath Topiramate [Topamax] 50 mg PO DAILY Aspirin 81 mg PO HS Diazepam [Valium] 2 mg PO HS Cyclobenzaprine HCl 10 mg PO TID Atorvastatin [Lipitor] 80 mg PO HS #90 tab Meclizine [Antivert] 25 mg PO TID Apixaban [Eliquis] 5 mg PO DIRECTED Fluticasone/Umeclidin/Vilanter [Trelegy Ellipta 100-62.5-25] 1 puff INHALATION RT-DAILY Metoprolol Succinate [Toprol Xl] 50 mg PO DAILY Cholecalciferol (Vitamin D3) [Vitamin D3] 1,000 unit PO DAILY Calcium Carbonate [Calcium] 600 mg PO DAILY Montelukast Sodium [Singulair] 10 mg PO DAILY rOPINIRole HCL [Requip] 0.5 mg PO TID Dicyclomine [Bentyl] 10 mg PO AC-TID Cholestyramine (with Sugar) [Cholestyramine Packet] 4 gm PO BID Levothyroxine Sodium [Synthroid] 150 mcg PO DAILY Discharge Medication List Albuterol Inhaler (Mhu) [Ventolin Hfa Inhaler (Mhu)] 2 puff INHALATION RT-QID PRN 06/09/17 [History] DULoxetine HCL [Cymbalta] 60 mg PO HS 06/09/17 [History] Omeprazole [PriLOSEC] 20 mg PO HS 06/09/17 [History] Topiramate [Topamax] 50 mg PO DAILY 06/09/17 [History] Aspirin 81 mg PO HS 09/08/17 [History] Cyclobenzaprine HCl 10 mg PO TID 09/08/17 [History] Diazepam [Valium] 2 mg PO HS 09/08/17 [History] Atorvastatin [Lipitor] 80 mg PO HS #90 tab 09/14/17 [Rx] Apixaban [Eliquis] 5 mg PO DIRECTED 06/30/18 [History] Fluticasone/Umeclidin/Vilanter [Trelegy Ellipta 100-62.5-25] 1 puff INHALATION RT-DAILY 06/30/18 [History] Meclizine [Antivert] 25 mg PO TID 06/30/18 [History] Cholecalciferol (Vitamin D3) [Vitamin D3] 1,000 unit PO DAILY 10/27/18 [History] HYDROcodone/APAP 7.5-325MG [Labadie 7.5-325] 1 tab PO BID 10/27/18 [History] Metoprolol Succinate [Toprol Xl] 50 mg PO DAILY 10/27/18 [History] Calcium Carbonate [Calcium] 600 mg PO DAILY 08/28/19 [History] Cholestyramine (with Sugar) [Cholestyramine Packet] 4 gm PO BID 08/28/19 [History] Dicyclomine [Bentyl] 10 mg PO AC-TID 08/28/19 [History] Levothyroxine Sodium [Synthroid] 150 mcg PO DAILY 08/28/19 [History] Montelukast Sodium [Singulair] 10 mg PO DAILY 08/28/19 [History] rOPINIRole HCL [Requip] 0.5 mg PO TID 08/28/19 [History] Follow up Appointment(s)/Referral(s): Timothy Fountain MD [Primary Care Provider] - 09/01/19 10:45 am Ovi Ware MD [STAFF PHYSICIAN] - 09/05/19 2:10 pm Activity/Diet/Wound Care/Special Instructions: No driving while taking Labadie No lifting over 10 pounds You may shower. No soaking or tub baths Very light activity until you are reevaluated at your follow up appointment with your surgeon
[2019-08-30 12:39] VITALS: BP 105/64; PULSE 64; TEMP 98.5
--- NOTE | 2019-08-30 14:08 | P.PN ---
Subjective Progress Note Date: 08/30/19 This is a 64-year-old male admitted with acute right upper quadrant abdominal pain, scheduled for cholecystectomy today. Persistent right upper quadrant tenderness. Diarrhea subsided. Denies chest pain, palpitations or increased shortness of breath. Afebrile, normal WBC. LFTs improving. 08/30/19 S/P laparoscopic cholecystectomy, postop day #1. Tolerated procedure well. Pain controlled. Passing flatus. Tolerating diet intake with no nausea vomiting or diarrhea. Afebrile. Mild Hypotension, systolic blood pressures in the low to mid 90s, asymptomatic. Ambulating in room, tolerating activity well. Denies lightheadedness dizziness or focal deficits. Denies chest pain, palpitations or increasing shortness of breath. Objective - Vital Signs Vital signs: Vital Signs Temp 98.4 F 08/30/19 05:00 Pulse 60 08/30/19 08:40 Resp 16 08/30/19 05:00 BP 91/56 08/30/19 05:00 Pulse Ox 92 L 08/30/19 05:00 Intake & Output 08/29/19 08/30/19 08/30/19 18:59 06:59 18:59 Intake Total 1000 2700 Output Total 5 Balance 995 2700 Intake: IV 1000 Intake, IV Titration 900 Amount Sodium Chloride 0.9% 1, 900 000 ml @ 75 mls/hr IV . [id number] JOSE LUIS Rx#:[id number] Oral 0 1800 Output: Estimated Blood Loss 5 Other: Voiding Method Toilet Toilet # Voids 3 3 - Exam PHYSICAL EXAM: VITAL SIGNS: [As above] GENERAL: Sitting up in bed, no acute distress HEENT: Conjunctivae normal. eyes normal. Oral mucosa dry. NECK: No JVD. No thyroid enlargement. No LNs CARDIOVASCULAR: S1, S2 regular.. No murmur RESPIRATION: Breath sounds diminished in the bases. No rhonchi or crackles. No bronchial breathing. ABDOMEN: Soft, tender, status post surgery. Laparoscopic sites clean dry and intact. Hypoactive Bowel sounds heard. LEGS: No edema. no swelling PSYCHIATRY: Alert and oriented X3, mood and affect normal. NERVOUS SYSTEM: Cranial N 2-12 grossly normal. Moves all 4 limbs. No focal deficits. Strength and sensation grossly intact. Skin:no rash - Labs CBC & Chem 7: 08/28/19 09:40 08/29/19 05:44 Assessment and Plan Assessment: Acute right upper quadrant abdominal pain accompanied by diarrhea, triggered by eating, acute cholecystitis as per surgical evaluation. Status post laparoscopic cholecystectomy. Postoperative hypotension, mild, asymptomatic, expected COPD, stable Hypertension Plan: Continue on current medication regime ,monitoring and symptomatic treatment. Received gentle IV fluid hydration. Repeat vital signs pending, Discharge planning in progress. The impression and plan of care has been dictated as directed. : I performed a history and examination of this patient, discussed the same with the dictator. I agree with the dictator's note ,documented as a scribe. Any additional findings or plans will be noted.
== END 2019-08-30 16:50 | disposition home or self-care (01) ==
LOC: EC 09:15 → 5NMEDONC 10:23 → INTOOBSV 10:23 → 5NMEDONC 11:05
PROVIDERS: ADMIT Surgery; ATTEND Surgery
DX: K81.2 Acute cholecystitis with chronic cholecystitis (principal); I95.81 Postprocedural hypotension; Z03.818 Encounter for observation for suspected exposure to other biological agents ruled out; K21.9 Gastro-esophageal reflux disease without esophagitis; J44.9 Chronic obstructive pulmonary disease, unspecified; H54.61 Unqualified visual loss, right eye, normal vision left eye; H35.372 Puckering of macula, left eye; E07.9 Disorder of thyroid, unspecified; R74.0 Nonspecific elevation of levels of transaminase and lactic acid dehydrogenase [LDH]; I10 Essential (primary) hypertension; R42 Dizziness and giddiness; D64.9 Anemia, unspecified; E78.00 Pure hypercholesterolemia, unspecified; G25.81 Restless legs syndrome; F31.9 Bipolar disorder, unspecified; F43.10 Post-traumatic stress disorder, unspecified; Z79.82 Long term (current) use of aspirin; Z79.01 Long term (current) use of anticoagulants; Z79.51 Long term (current) use of inhaled steroids; Z79.890 Hormone replacement therapy; Z79.891 Long term (current) use of opiate analgesic; Z79.02 Long term (current) use of antithrombotics/antiplatelets; Z79.899 Other long term (current) drug therapy; Z88.1 Allergy status to other antibiotic agents; Z87.19 Personal history of other diseases of the digestive system; Z87.891 Personal history of nicotine dependence; Z90.710 Acquired absence of both cervix and uterus; Z87.01 Personal history of pneumonia (recurrent); Z90.49 Acquired absence of other specified parts of digestive tract; Z98.891 History of uterine scar from previous surgery; Z82.3 Family history of stroke; Z82.49 Family history of ischemic heart disease and other diseases of the circulatory system
CPT/HCPCS: 96374; 99285; 36415; 94640 ×4; 94760; 88304; 80053 ×2; 83605; 83690; 85025; 81003; 87635; 74018; 47562; G0378 ×2; J1644; J1100; J2405; C9113 ×2; J1170 ×2

== ENCOUNTER 2019-12-05 19:08 | Emergency (ER) | payer MEDICARE, OTHER ==
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
--- NOTE | 2019-12-05 19:42 | XR ---
EXAMINATION TYPE: XR foot complete RT DATE OF EXAM: 12/05/2019 COMPARISON: NONE HISTORY: Foot injury TECHNIQUE: 3 views FINDINGS: There is a small Achilles calcaneal spur. Metatarsals are intact. I see no fracture nor dis location. Tarsal bones are intact. IMPRESSION: No acute abnormality of the right foot.
[2019-12-05 20:27] LABS: ALT 40 U/L (4-34); AST 36 U/L (14-36); African American GFR (CKD) >90 (>60 ml/min/1.73 sqM); Alkaline Phosphatase 131 U/L (38-126); Anion Gap 10 mmol/L; Blood Urea Nitrogen 20 mg/dL (7-17); Calcium 9.2 mg/dL (8.4-10.2); Carbon Dioxide 19 mmol/L (22-30); Chloride 110 mmol/L (98-107); Glucose 119 mg/dL (74-99); Non-African American GFR(CKD) 81 (>60 ml/min/1.73 sqM); Potassium 4.1 mmol/L (3.5-5.1); Sodium 139 mmol/L (137-145); Total Bilirubin 0.3 mg/dL (0.2-1.3); Total Protein 6.8 g/dL (6.3-8.2)
[2019-12-05 20:48] LABS: Basophils % (A) 1 %; Eosinophils # (A) 0.1 k/uL (0-0.7); Eosinophils % (A) 3 %; HCT 42.2 % (34.0-46.0); HGB 13.8 gm/dL (11.4-16.0); Lymphocytes # (A) 1.8 k/uL (1.0-4.8); Lymphocytes % (A) 32 %; MCH 30.9 pg (25.0-35.0); MCHC 32.7 g/dL (31.0-37.0); MCV 94.5 fL (80.0-100.0); Mean Platelet Volume 8.2; Monocytes # (A) 0.4 k/uL (0-1.0); Monocytes % (A) 7 %; Neutrophils # (A) 3.2 k/uL (1.3-7.7); Neutrophils % (A) 56 %; Platelet Count 189 k/uL (150-450); RBC 4.46 m/uL (3.80-5.40); RDW 12.7 % (11.5-15.5); WBC 5.8 k/uL (3.8-10.6)
[2019-12-05 20:58] LABS: INR 0.9 (<1.2); Partial Thromboplastin Time 22.4 sec (22.0-30.0); Prothrombin Time 9.5 sec (9.0-12.0)
--- NOTE | 2019-12-05 21:39 | US ---
EXAMINATION TYPE: US venous doppler duplex LE RT DATE OF EXAM: 12/05/2019 9:21 PM COMPARISON: NONE CLINICAL HISTORY: pain. Pain x 3 days. Hx DVT and PE. patient has florence filter. Patient takes El iquis. SIDE PERFORMED: Right TECHNIQUE: The lower extremity deep venous system is examined utilizing real time linear array sonog parminder with graded compression, doppler sonography and color-flow sonography. VESSELS IMAGED: External Iliac Vein (EIV) Common Femoral Vein Deep Femoral Vein Greater Saphenous Vein * Femoral Vein Popliteal Vein Small Saphenous Vein * Proximal Calf Veins (* superficial vessels) Right Leg: Femoral vein appears small and to be duplicated at mid-distal segments. There appears to be a slight color defect throughout femoral vein. Possible non-occlusive chronic thrombus within the femoral vein. IMPRESSION: No evidence of acute deep vein thrombosis. There is probably some chronic deep vein thro mbosis in the right femoral vein.
[2019-12-05 21:51] VITALS: BP 144/91; PULSE 56; RESP 16; TEMP 98.2
== END 2019-12-05 22:13 | disposition home or self-care (01) ==
LOC: EC 19:08
DX: S99.921A Unspecified injury of right foot, initial encounter (principal); R21 Rash and other nonspecific skin eruption; J44.9 Chronic obstructive pulmonary disease, unspecified; E07.9 Disorder of thyroid, unspecified; K21.9 Gastro-esophageal reflux disease without esophagitis; I25.2 Old myocardial infarction; F31.9 Bipolar disorder, unspecified; Z79.82 Long term (current) use of aspirin; Z79.01 Long term (current) use of anticoagulants; Z79.51 Long term (current) use of inhaled steroids; Z79.890 Hormone replacement therapy; Z79.899 Other long term (current) drug therapy; Z88.1 Allergy status to other antibiotic agents; Z86.718 Personal history of other venous thrombosis and embolism
CPT/HCPCS: 29515; 36415; 80053; 85025; 85610; 85730; 99284

== ENCOUNTER → 2019-12-28 | Day surgery (SDC) | payer MEDICARE, OTHER ==
[2019-12-26 14:43] VITALS: BMI 27.3
[~2019-12-28] MED LIST changes: -HEPARIN SODIUM,PORCINE 5,000 UNIT/ML 1 ML VIAL SQ ONE; +LACTATED RINGERS 1,000 ML IV SCH; +LIDOCAINE 1% (10MG/ML) FOR IV START INTRADERMA ONE; +LIDOCAINE 1% INJ 10MG/ML (20 ML MDV) ONE; +PROPOFOL 10 MG/ML 20 ML VIAL IV ONE; -ceFAZolin IN SWFI 2 GM/20 ML SYRINGE IVP ONE
[2019-12-28 07:19] VITALS: TEMP 97.9
--- NOTE | 2019-12-28 08:09 | P.GSHP ---
History of Present Illness H&P Date: 12/28/19 Chief Complaint: Gastritis This a 64-year-old female with epigastric pain. Patient is a safer EGD diet for gastritis. Past Medical History Past Medical History: COPD, Deep Vein Thrombosis (DVT), Hyperlipidemia, Myocardial Infarction ([place]), Osteoarthritis (OA), Pulmonary Embolus (PE), Renal Disease, Sleep Apnea/CPAP/BIPAP, Thyroid Disorder Additional Past Medical History / Comment(s): anemia, hx ulcer, occ vertigo, blind rt eye since childhood, lt eye macular pucker.migraines, constant abdominal pain and diarrhea, oxygen at night at 2L, no cpap used, stage 3 kidney disease Last Myocardial Infarction Date:: 06/2018 History of Any Multi-Drug Resistant Organisms: None Reported Past Surgical History: Appendectomy, Section, Cholecystectomy, Heart Catheterization With Stent, Hernia Repair, Hysterectomy, Orthopedic Surgery, Tonsillectomy Additional Past Surgical History / Comment(s): rt radial nerve release, egd, rt shoulder replacement, surgery for tubal , surgery for ovarian cyst, one cardiac stent, florence filter Past Anesthesia/Blood Transfusion Reactions: No Reported Reaction Date of Last Stent Placement:: 07/2018 Past Psychological History: Anxiety, Bipolar, Depression, PTSD Smoking Status: Former smoker Past Alcohol Use History: None Reported Additional Past Alcohol Use History / Comment(s): quit smoking 6 yrs. ago, smo ked 1ppd 40 yrs. Past Drug Use History: None Reported - Past Family History Mother Family Medical History: Deep Vein Thrombosis (DVT) Additional Family Medical History / Comment(s): at age 42 from blood clot. Father Family Medical History: Cancer Brother(s) Family Medical History: Blood Disorder, CVA/TIA, Deep Vein Thrombosis (DVT) Additional Family Medical History / Comment(s): factor V Sister(s) Family Medical History: Deep Vein Thrombosis (DVT) Medications and Allergies Home Medications Medication Instructions Recorded Confirmed Type DULoxetine HCL [Cymbalta] 60 mg PO HS 06/09/17 12/26/19 History Topiramate [Topamax] 50 mg PO DAILY 06/09/17 12/26/19 History Aspirin 81 mg PO HS 09/08/17 12/26/19 History Cyclobenzaprine HCl 10 mg PO TID 09/08/17 12/26/19 History diazePAM [Valium] 2 mg PO HS 09/08/17 12/26/19 History Atorvastatin [Lipitor] 80 mg PO HS #90 tab 09/14/17 12/26/19 Rx Apixaban [Eliquis] 5 mg PO BID 06/30/18 12/26/19 History Fluticasone/Umeclidin/Vilanter 1 puff INHALATION RT-DAILY 06/30/18 12/26/19 History [Trelegy Ellipta 100-62.5-25] Meclizine [Antivert] 25 mg PO TID 06/30/18 12/26/19 History HYDROcodone/APAP 7.5-325MG [[place] 1 tab PO BID 10/27/18 12/26/19 History 7.5-325] Metoprolol Succinate [Toprol Xl] 50 mg PO DAILY 10/27/18 12/26/19 History Levothyroxine Sodium [Synthroid] 150 mcg PO DAILY 08/28/19 12/26/19 History rOPINIRole HCL [Requip] 0.5 mg PO TID 08/28/19 12/26/19 History Albuterol Inhaler [Ventolin Hfa 2 puff INHALATION RT-QID PRN 12/05/19 12/26/19 History Inhaler] Dicyclomine [Bentyl] 20 mg PO TID 12/05/19 12/26/19 History Psyllium Powder 1 applicate PO DAILY 12/26/19 12/26/19 History Allergies Allergy/AdvReac Type Severity Reaction Status Date / Time levofloxacin [From Levaquin] AdvReac TENDONITIS Verified 12/26/19 14:25 Surgical - Exam Vital Signs Temp Pulse Resp BP Pulse Ox 97.9 F 67 20 113/76 96 12/28/19 07:18 12/28/19 07:18 12/28/19 07:18 12/28/19 07:18 12/28/19 07:18 - General well developed, well nourished, no distress - Eyes PERRL - ENT normal pinna - Neck no masses Assessment and Plan Assessment: Epigastric pain. We'll perform EGD diet for gastritis.
--- NOTE | 2019-12-28 08:14 | P.OP ---
Date of Procedure: 12/28/19 Preoperative Diagnosis: Gastritis Postoperative Diagnosis: Mild antral gastritis Retained gastric food Procedure(s) Performed: EGD Anesthesia: MAC Surgeon: Ovi Ware Pathology: other (Antrum) Condition: stable Disposition: PACU Description of Procedure: Patient's placed on the endoscopy table in the lateral position. She received IV sedation. The gastroscope was oropharynx passed in the esophagus and stomach. Scope was placed through the pylorus. The first second portion of duodenum appeared normal. Scope was then brought back the antrum and this was minimal inflamed. A biopsies performed. Scope was unretroflexed there is a large amount of retained food seen the stomach. There is no significant hiatal hernia. The GE junction was at 40 cm. The distal esophagus appeared normal. The proximal esophagus appeared normal. Scope withdrawn for patient.
[2019-12-28 08:20] VITALS: RESP 17
[2019-12-28 08:27] VITALS: BP 100/63; PULSE 54
== END ==
LOC: ORWHC2ENDO 06:55
PROVIDERS: ATTEND Surgery
DX: K29.70 Gastritis, unspecified, without bleeding (principal); Z99.81 Dependence on supplemental oxygen; J44.9 Chronic obstructive pulmonary disease, unspecified; K52.9 Noninfective gastroenteritis and colitis, unspecified; E78.5 Hyperlipidemia, unspecified; I25.2 Old myocardial infarction; M19.90 Unspecified osteoarthritis, unspecified site; Z86.711 Personal history of pulmonary embolism; G47.33 Obstructive sleep apnea (adult) (pediatric); Z99.89 Dependence on other enabling machines and devices; Z86.718 Personal history of other venous thrombosis and embolism; E07.9 Disorder of thyroid, unspecified; R42 Dizziness and giddiness; H54.61 Unqualified visual loss, right eye, normal vision left eye; G43.809 Other migraine, not intractable, without status migrainosus; N18.3 Chronic kidney disease, stage 3 (moderate); Z90.49 Acquired absence of other specified parts of digestive tract; Z95.5 Presence of coronary angioplasty implant and graft; Z90.710 Acquired absence of both cervix and uterus; Z98.890 Other specified postprocedural states; Z96.611 Presence of right artificial shoulder joint; Z95.828 Presence of other vascular implants and grafts; F31.9 Bipolar disorder, unspecified; F43.10 Post-traumatic stress disorder, unspecified; Z87.891 Personal history of nicotine dependence; Z82.49 Family history of ischemic heart disease and other diseases of the circulatory system; Z80.9 Family history of malignant neoplasm, unspecified; Z83.2 Family history of diseases of the blood and blood-forming organs and certain disorders involving the immune mechanism; Z79.01 Long term (current) use of anticoagulants; Z79.82 Long term (current) use of aspirin; Z79.890 Hormone replacement therapy; Z79.891 Long term (current) use of opiate analgesic; Z79.51 Long term (current) use of inhaled steroids; Z79.899 Other long term (current) drug therapy; Z88.1 Allergy status to other antibiotic agents; K27.9 Peptic ulcer, site unspecified, unspecified as acute or chronic, without hemorrhage or perforation
CPT/HCPCS: 88305; 43239; J2001; J2704

== ENCOUNTER → 2020-08-16 | Outpatient (CLI) | payer MEDICARE, OTHER | END | disposition home or self-care (01) | LOC: LABPAT 09:23 | PROVIDERS: ATTEND Orthopaedic Surgery | DX: Z01.812 Encounter for preprocedural laboratory examination (principal) | CPT/HCPCS: 87070 ==

== ENCOUNTER 2020-08-27 05:58 | Inpatient (IN) | payer MEDICARE, OTHER ==
[2020-08-21 12:15] VITALS: BMI 26.9
--- NOTE | 2020-08-26 11:51 | HP ---
HISTORY AND PHYSICAL CHIEF COMPLAINT: Left shoulder pain. HISTORY OF PRESENT ILLNESS: The patient is a 65-year-old right-hand dominant female who presents with left shoulder pain. It has progressed over the past several years. It has worsened recently. She is having pain with any attempted overhead use and at night. She has been taking pain medications without much relief. PAST MEDICAL HISTORY: Significant for coronary artery disease, anemia, depression, hypothyroidism, DVT and pulmonary embolism, factor V deficiency, and arthritis. PAST SURGICAL HISTORY: Significant for appendectomy, , tonsillectomy, radial nerve release, Lester filter placement, cardiac stent placement, right total shoulder arthroplasty. CURRENT MEDICATIONS: Aspirin, Eliquis, meclizine, [place], Topamax, albuterol, Celexa, Flexeril, Lipitor, Singulair, Synthroid. ALLERGIES: LEVAQUIN. FAMILY HISTORY: Significant for clotting disorder, cancer, diabetes, stroke. SOCIAL HISTORY: Significant for previous tobacco use however she quit in 2012. REVIEW OF SYSTEMS: Sixteen point review of systems is otherwise reviewed and is negative except as in HPI. PHYSICAL EXAMINATION: On examination, the patient is approximately 5 foot 7, 176 pounds, of mesomorphic. HEENT exam is nonfocal. Neck is supple. On examination of her left shoulder, she is tender about the anterior glenohumeral joint. She has moderate crepitus. Active range of motion forward elevation 90 degrees, external rotation with arm at side 25 degrees, internal rotation to L1. Motor strength is 5-/5 for external rotation, 5/5 for abduction. Impingement test, Neer test, and Speed tests are positive. Her distal neurovascular exam otherwise appears intact in left upper extremity. IMAGING: X-rays of the left shoulder obtained in the office show severe glenohumeral joint osteoarthrosis with [id number] changes, subchondral sclerosis. No significant posterior erosion is noted. IMPRESSION: 1. Left severe glenohumeral joint osteoarthrosis. 2. Factor V deficiency/clotting disorder. RECOMMENDATIONS: I talked to the patient at length regarding her condition and treatment options. At this point, she is quite symptomatic and limited because of pain despite previous conservative measures. After thorough discussion, she opts to proceed with surgery. We will plan to proceed with left total shoulder arthroplasty. We will reinstitute her anticoagulation postoperatively. Risks and benefits were discussed at length in layman's terms. MMODL / IJN: [id number] /
[~2020-08-27 05:58] MED LIST changes: +ACETAMINOPHEN TAB 500 MG TAB PO PRN; +DEXAMETHASONE SOD PHOSPHATE 4 MG/ML 1 ML VIAL IV ONE; -LACTATED RINGERS 1,000 ML IV SCH; -LIDOCAINE 1% (10MG/ML) FOR IV START INTRADERMA ONE; +LIDOCAINE 1% (10MG/ML) FOR IV START INTRADERMA PRN; -LIDOCAINE 1% INJ 10MG/ML (20 ML MDV) ONE; +MELOXICAM 7.5 MG TAB PO PRN; +MIDAZOLAM 2 MG/2 ML VIAL IV PRN; +ONDANSETRON 4 MG/2 ML VIAL IVP ONE; -PROPOFOL 10 MG/ML 20 ML VIAL IV ONE; +TRANEXAMIC ACID 1,000 MG in SODIUM CHLORIDE 0.9% 100 ML IVPB PRN; +VANCOMYCIN 1,250 MG in SODIUM CHLORIDE 0.9% 250 ML IVPB PRN
[2020-08-27] MEDS: LACTATED RINGERS 1,000 ML IV SCH (07:07)
[2020-08-27] MEDS ORDERED: ROPIVACAINE 5 MG/ML 30 ML VIAL ONE (07:39)
[2020-08-27] MEDS ORDERED: SUCCINYLCHOLINE CHLORIDE 100 MG/5 ML SYR IV ONE (07:39)
[2020-08-27] MEDS ORDERED: LIDOCAINE 1% INJ 10MG/ML (20 ML MDV) ONE (07:39)
[2020-08-27] MEDS ORDERED: PHENYLEPHRINE-0.9% NACL SYG 1,000 MCG/10 ML SYRINGE ONE (07:39)
[2020-08-27] MEDS ORDERED: MIDAZOLAM 2 MG/2 ML VIAL ONE (07:39)
[2020-08-27] MEDS ORDERED: ePHEDrine SULFATE/0.9% NACL/PF 50 MG/5 ML SYRINGE IV ONE (07:39)
[2020-08-27] MEDS ORDERED: fentaNYL (PF) 50 MCG/ML 2 ML AMP ONE (07:39)
[2020-08-27] MEDS ORDERED: DEXAMETHASONE SOD PHOSPHATE 4 MG/ML 1 ML VIAL ONE (07:39)
[2020-08-27] MEDS ORDERED: HYDROmorphone (PF) 1 MG/ML ONE (07:39)
[2020-08-27] MEDS ORDERED: PROPOFOL 10 MG/ML 20 ML VIAL IV ONE (07:39)
[2020-08-27] MEDS ORDERED: SODIUM CHLORIDE 0.9% 100 ML BAG ONE (07:39)
[2020-08-27] MEDS ORDERED: TRANEXAMIC ACID 1,000 MG/10 ML VIAL ONE (07:39)
[2020-08-27] MEDS ORDERED: ceFAZolin 3,000 MG in SODIUM CHLORIDE 0.9% IRRIGATIO 3,000 ML IRRIGATION ONE (08:00)
[2020-08-27 08:19] LABS: Glucose,Whole Blood 106 mg/dL (75-99)
[2020-08-27] MEDS ORDERED: HYDROmorphone 0.2 MG/1 ML SYRINGE IVP PRN (09:33)
[2020-08-27] MEDS ORDERED: SENNOSIDES-DOCUSATE SODIUM 1 EACH TAB PO PRN (09:33)
--- NOTE | 2020-08-27 09:59 | P.OP ---
Date of Procedure: 08/27/20 Preoperative Diagnosis: Left severe glenohumeral joint osteoarthrosis Postoperative Diagnosis: Same Procedure(s) Performed: Left total shoulder arthroplasty Implants: [employer] size 12 press-fit humeral stem was size 12 body, 48 x 18 mm eccentric humeral head, 44 mm cemented central pegged glenoid component. Anesthesia: JONATHAN Surgeon: Bo Romano Zipper Setter #1: Eligio Harris Estimated Blood Loss (ml): 100 Pathology: other (Humeral head) Condition: stable Disposition: PACU Indications for Procedure: The patient's 65-year-old female who presents with progressive left shoulder pain secondary to osteoporosis despite conservative measures. A discussion of the risks and benefits of operative intervention versus continued conservative measures made with patient. She opted to proceed with surgery. Operative risks to include infection, neurovascular injury, development of blood clots, possible fracture, possible instability, possible component loosening need for subsequent procedures was discussed. Informed consent was obtained. Operative Findings: As below Description of Procedure: The patient was brought to the operating room, and after induction of general anesthesia was placed in the beachchair position. The bony prominences were appropriately padded. The left upper extremity was prepped and draped in normal fashion. A deltopectoral incision was then made lateral to the coracoid process extending approximately 12 cm. The skin was incised sharply. Subcutaneous tissues were divided bluntly. Electrocautery was used for hemostasis. The deltopectoral interval was identified and the cephalic vein gently retracted laterally with the deltoid. Subdeltoid adhesions were bluntly dissected. A self-retaining retractor was placed. The clavipectoral fascia was opened and the conjoined tendon gently retracted medially. The upper one third of the pectoralis major was released to help facilitate exposure. The biceps was identified and the sheath was opened. The rotator interval was opened. The biceps was tenotomized and allowed to retract distally. The lesser tuberosity osteotomy was performed with a small sagittal saw. This completed with an osteotome. The humeral head was then exposed releasing the capsule off the humeral neck. The shoulder was gently dislocated. A starting hole was made in the head in line with the humeral shaft. The shaft was reamed by hand up to 12 mm. There is good distal chatter. The cutting guide was placed planning on a cut flush with the rotator cuff insertion and 30 of retroversion. The cutting block was pinned in place. The humeral head cut was then made. This measured most appropriately at 48 x 18 mm. Residual inferior osteophytes were carefully removed flush with the [place] cortical bone. A posterior glenoid retractor was placed. The glenoid was then exposed releasing the labrum from the 6-12 o'clock position. Residual labral tissue was removed. The glenoid sized most approp riate 44 mm. A guidewire was then inserted planning on the appropriate version. The glenoid was reamed down to a bleeding bony surface. The central pedicle was drilled. The alignment guide was placed in the peripheral peg holes drilled. The trial size 44 mm glenoid was placed and was fully seated. There was good anterior to posterior and inferior to superior fit. The trial component was removed. Pulsatile lavage was utilized. The bony surface was dried. The peripheral peg holes were then pressurized with cement utilizing a syringe. Excess cement was removed. A central peg glenoid was then placed and was fully seated. This was gently impacted. This was held in place until the cement had sufficiently hardened. Attention was then paid again towards preparing the proximal humerus. The appropriate broach was placed in 30 of retroversion and was fully seated. An eccentric 48 x 18 mm humeral head was placed. The shoulder was gently reduced. It was taken through a range of motion. It was felt to be stable in flexion and extension with internal and external rotation. I felt there was adequate amish of soft tissue tension. The shoulder was gently dislocated. The trial components were then removed. A #2 Ethibond was placed laterally for reattachment of the lesser tuberosity. The humeral stem was inserted in 30 of retroversion and was fully seated. There was good rotational stability. The eccentric 48 x 18 mm humeral head was gently impacted. The shoulder was then gently reduced and taken through range of motion and was felt to be stable. Pulsatile lavage was utilized. Lesser tuberosity was reattached utilizing #2 Ethibond suture. The rotator interval was closed with #2 Ethibond suture. She had minimal drainage at this point therefore a deep drain was not placed. The deltopectoral interval was closed with interrupted 2-0 Vicryl sutures. The subcu tissues were reapproximated with interrupted 2-0 Vicryl sutures. The skin was reprepped with 3-0 subcuticular Prolene suture. Steri-Strips were applied. A sterile dressing was applied in addition to a sling. The patient was then awoken from general anesthesia and transferred to recovery room in good condition. Blood loss was estimated at 100 mL. No complications were incurred. Sponge and needle counts were correct at the end the case. Eligio GURROLA assistance during the major c omponents the case to include exposure, resection, implantation, and closure.
[2020-08-27] MEDS: HYDROmorphone 0.5 MG/0.5 ML SYRINGE IVP PRN ×2 (10:33→10:57)
--- NOTE | 2020-08-27 10:34 | XR ---
EXAMINATION TYPE: XR shoulder complete LT DATE OF EXAM: 08/27/2020 COMPARISON: NONE HISTORY: Postop TECHNIQUE: One view of the left shoulder is obtained FINDINGS: Postsurgical changes appear in near-anatomic alignment. Soft tissue edema and emphysema not ed. IMPRESSION: Postoperative changes.
[2020-08-27] MEDS ORDERED: diphenhydrAMINE 50 MG/ML 1 ML VIAL IVP ONE (11:06)
[2020-08-27] MEDS ORDERED: LACTATED RINGERS 1,000 ML IV ONE (11:51)
[2020-08-27] MEDS ORDERED: APIXABAN 5 MG TAB PO SCH (12:00)
[2020-08-27] MEDS ORDERED: ZOLPIDEM 10 MG TAB PO PRN (13:22)
[2020-08-27] MEDS ORDERED: ALBUTEROL HFA INHALER INHALATION PRN (13:22)
[2020-08-27] MEDS ORDERED: ZOLPIDEM 5 MG TAB PO PRN (13:35)
--- NOTE | 2020-08-27 13:47 | P.ANPRN ---
Procedure Note - Anesthesia - Nerve Block Performed Left Interscalene Single Time Out Performed: Yes Date of Procedure: 08/27/20 Procedure Start Time: 10:00 Procedure Stop Time: 10:09 Location of Patient: Phase I Indication: Acute Post-Operative Pain, Requested by Surgeon Sedation Type: Sedate with meaningful contact maintained Preparation: Sterile Prep, Sterile Dressing Position: Sitting Catheter: None Needle Types: Facet Needle Gauge: 21 Ultrasound used to visualize needle placement: Yes Ultrasound used to observe medication spread: Yes Injectate: 0.5% Ropivacaine (see comment for volume) (20 ml + decadron 4 mg) Blood Aspirated: No Pain Paresthesia on Injection Noted: No Resistance on Injection: Normal Image Stored and Saved: Yes Events: Uneventful and Well Tolerated
[2020-08-27] MEDS: TOPIRAMATE 25 MG TAB PO SCH (14:08)
[2020-08-27] MEDS: LEVOTHYROXINE 75 MCG TAB PO SCH (14:09)
[2020-08-27] MEDS: IPRATROPIUM 0.5 MG/2.5 ML NEBU INHALATION SCH ×2 (16:02→21:19)
[2020-08-27] MEDS: MECLIZINE 25 MG TAB PO SCH ×2 (16:55→21:22)
[2020-08-27] MEDS: HYDROcodone/APAP 5-325MG 1 EACH TAB PO PRN (16:55)
[2020-08-27] MEDS ORDERED: PANTOPRAZOLE 40 MG TABLET PO SCH (17:30)
[2020-08-27] MEDS: APIXABAN 5 MG TAB PO SCH (19:55)
[2020-08-27] MEDS ORDERED: diazePAM 2 MG TAB PO SCH (21:00)
[2020-08-27] MEDS ORDERED: ASPIRIN 81 MG PO SCH (21:00)
[2020-08-27] MEDS ORDERED: ATORVASTATIN 80 MG TAB PO SCH (21:00)
[2020-08-27] MEDS ORDERED: DULoxetine HCL 60 MG CAPSULE.DR PO SCH (21:00)
[2020-08-27] MEDS ORDERED: MONTELUKAST 10 MG TAB PO SCH (21:00)
[2020-08-27] MEDS: SYMBICORT 80-4.5 MCG INHALER INHALATION SCH (21:19)
[2020-08-27 23:24] VITALS: TEMP 98
[2020-08-28] MEDS: HYDROcodone/APAP 5-325MG 1 EACH TAB PO PRN ×2 (00:10→05:16)
[2020-08-28] MEDS: LEVOTHYROXINE 75 MCG TAB PO SCH (05:16)
[2020-08-28] MEDS: LACTATED RINGERS 1,000 ML IV SCH (05:55)
[2020-08-28] MEDS: SYMBICORT 80-4.5 MCG INHALER INHALATION SCH (07:39)
[2020-08-28] MEDS: IPRATROPIUM 0.5 MG/2.5 ML NEBU INHALATION SCH ×2 (07:39→11:47)
[2020-08-28] MEDS ORDERED: HYDROcodone/APAP 7.5-325MG 1 EACH TAB PO PRN (08:13)
[2020-08-28] MEDS: TOPIRAMATE 25 MG TAB PO SCH (08:31)
[2020-08-28] MEDS: MECLIZINE 25 MG TAB PO SCH (08:32)
[2020-08-28] MEDS: APIXABAN 5 MG TAB PO SCH (08:32)
[2020-08-28 08:33] VITALS: BP 108/72
[2020-08-28] MEDS ORDERED: METOPROLOL SUCCINATE (ER) 50 MG TAB.ER.24H PO SCH (09:00)
--- NOTE | 2020-08-28 09:19 | P.DS ---
Providers Date of admission: 08/27/20 05:58 Expected date of discharge: 08/28/20 Attending physician: Bo Romano Consults: 08/27/20 13:14 Consult Physician Routine Consulting Provider: Debbie Bledsoe Consult Reason/Comments: Medical Management Do you want consulting provider notified?: Yes Primary care physician: [place] Hospital Course: Date of admission: 08/27/2020 Date of discharge: 08/28/2020 Admission diagnosis: Left shoulder osteoarthritis Discharge diagnosis: Same Attending physician: Dr. Romano Surgical procedures: Left total shoulder arthroplasty Brief history: Patient is a 65-year-old female with a history of progressive primary left shoulder osteoarthritis. At this point patient has failed conservative treatment measures and has opted to proceed with a elective left total shoulder arthroplasty. Hospital course: Details of patient's surgery can be found in operative report. Patient tolerated the procedure well and was subsequently transported to orthopedic floor. Patient's orthopeidc and medical care was provided daily. Patient had daily laboratory tests performed for evaluation of overall blood counts. Patient had daily physical therapy to include strengthening range of motion as well as education with walker ambulation. Patient was treated with Eliquis for their postoperative DVT prophylaxis during their inpatient stay. Patient was noted to have a relatively uneventful postoperative course. Patient reported satisfactory pain control with oral pain medications by postoperative day 1. Patient showed satisfactory progress with physical therapy. Patient moved steadily through the program and had no difficulty meeting the goals by postoperative day 1. Given patient's otherwise satisfactory course and having met physical therapy goals, plan is to discharge patient home on postoperative day 1. Discharge condition/disposition: Patient will be discharged home in stable condition. Discharge medications: Instructions are given on resumption of patient's normal daily medications per primary care recommendation, in addition patient will be prescribed [place] 7.5 mg/325 mg. Discharge instructions: 1. Wound care and infection precautions, keep incision dry and covered while showering, no lotions, creams, moisturizers. No soaking, tubs, pools, hottubs. Do not scrub over the incision. 2. Weight-bear as tolerated with walker / cane until follow-up. 3. Ice and elevate when necessary. Do not exceed 20 minutes per hour with ice pack. 4. Utilize compression sleeve until seen at first follow up appointment. 5. Visiting nursing care. 6. Home physical therapy. 7. Pain meds and anticoagulants per prescription. 8. Pain medication has potential to cause constipation. Increase oral fluid and fiber intake. Contact primary care provider if you have not had a bowel movement within 48 hours after discharge 9. No anti-inflammatory medication until discussed at first post operative visit, this including Motrin, Aleve, Mobic, Diclofenac. 10. Follow up in office at 2 weeks postop with Ronak Wray PA-C / Eligio Harris PA-C 11. Follow up with your primary care doctor 7-10 days after discharge. 12. Contact [facility] with any questions, . Assessment: Left shoulder osteoarthritis Procedures: Left total shoulder arthroplasty Patient Condition at Discharge: Good Plan - Discharge Summary Discharge Rx Participant: Yes New Discharge Prescriptions: New HYDROcodone/APAP 7.5-325MG [[place] 7.5] 1 each PO Q6HR PRN #32 tab PRN Reason: Pain No Action DULoxetine HCL [Cymbalta] 60 mg PO HS Topiramate [Topamax] 50 mg PO DAILY Aspirin 81 mg PO HS diazePAM [Valium] 2 mg PO HS Cyclobenzaprine HCl 10 mg PO TID Atorvastatin [Lipitor] 80 mg PO HS #90 tab Meclizine [Antivert] 25 mg PO TID Apixaban [Eliquis] 5 mg PO BID Fluticasone/Umeclidin/Vilanter [Trelegy Ellipta 100-62.5-25] 1 puff INHALATION RT-DAILY HYDROcodone/APAP 7.5-325MG [[place] 7.5-325] 1 tab PO TID Metoprolol Succinate [Toprol Xl] 50 mg PO DAILY rOPINIRole HCL [Requip] 0.5 mg PO TID Levothyroxine Sodium [Synthroid] 150 mcg PO DAILY Albuterol Inhaler [Ventolin Hfa Inhaler] 2 puff INHALATION RT-QID PRN PRN Reason: Shortness Of Breath Montelukast [Singulair] 10 mg PO HS Omeprazole [PriLOSEC] 20 mg PO AC-SUPPER Lovenox(Unknown Dose) SQ DIRECTED Diphenoxylate HCl/Atropine [Lomotil 2.5-0.025 mg Tablet] 1 - 2 tab PO BID Zolpidem [Ambien] 10 mg PO HS PRN PRN Reason: Insomnia Discharge Medication List DULoxetine HCL [Cymbalta] 60 mg PO HS 06/09/17 [History] Topiramate [Topamax] 50 mg PO DAILY 06/09/17 [History] Aspirin 81 mg PO HS 09/08/17 [History] Cyclobenzaprine HCl 10 mg PO TID 09/08/17 [History] diazePAM [Valium] 2 mg PO HS 09/08/17 [History] Atorvastatin [Lipitor] 80 mg PO HS #90 tab 09/14/17 [Rx] Apixaban [Eliquis] 5 mg PO BID 06/30/18 [History] Fluticasone/Umeclidin/Vilanter [Trelegy Ellipta 100-62.5-25] 1 puff INHALATION RT-DAILY 06/30/18 [History] Meclizine [Antivert] 25 mg PO TID 06/30/18 [History] HYDROcodone/APAP 7.5-325MG [[place] 7.5-325] 1 tab PO TID 10/27/18 [History] Metoprolol Succinate [Toprol Xl] 50 mg PO DAILY 10/27/18 [History] Levothyroxine Sodium [Synthroid] 150 mcg PO DAILY 08/28/19 [History] rOPINIRole HCL [Requip] 0.5 mg PO TID 08/28/19 [History] Albuterol Inhaler [Ventolin Hfa Inhaler] 2 puff INHALATION RT-QID PRN 12/05/19 [History] Diphenoxylate HCl/Atropine [Lomotil 2.5-0.025 mg Tablet] 1 - 2 tab PO BID 08/21/20 [History] Lovenox(Unknown Dose) SQ DIRECTED 08/21/20 [History] Montelukast [Singulair] 10 mg PO HS 08/21/20 [History] Omeprazole [PriLOSEC] 20 mg PO AC-SUPPER 08/21/20 [History] Zolpidem [Ambien] 10 mg PO HS PRN 08/21/20 [History] HYDROcodone/APAP 7.5-325MG [[place] 7.5] 1 each PO Q6HR PRN #32 tab 08/28/20 [Rx] Follow up Appointment(s)/Referral(s): Branch,Gerald M, PAC [PHYSICIAN BRAZER RESISTANCE] - 2 Weeks Patient Instructions/Handouts: Shoulder Arthroplasty (GEN) Activity/Diet/Wound Care/Special Instructions: Orthopedic Discharge Instructions: 1. Wound care and infection precautions, keep incision dry and covered while showering, no lotions, creams, moisturizers. No soaking, pools, hot tubs. Do not scrub over incision. 2. Weight-bear as tolerated until follow-up. Perform pendular exercises 3. Ice and elevate when necessary. Do not exceed 20 minutes per hour with ice pack. 4. Utilize compression sleeve until seen at first follow up appointment. 5. Pain meds and anticoagulants per prescription. 6. Pain medication has potential to cause constipation. Increase oral fluid and fiber intake. Contact primary care provider if you have not had a bowel movement within 48 hours after discharge. 7. No anti-inflammatory medication until discussed at first post operative visit, this including Motrin, Aleve, Mobic, Diclofenac. 8. Follow up in office at 2 weeks postop with Ronak Wray PA-C / Eligio Harris PA-C 9. Follow up with your primary care doctor 7-10 days after discharge. 10. Contact [facility] with any questions, . Discharge Disposition: HOME SELF-CARE
--- NOTE | 2020-08-28 09:25 | P.PN ---
Subjective Progress Note Date: 08/28/20 Principal diagnosis: Left shoulder osteoarthritis Upon entering room patient was sitting up in bed. Patient says she has been up to bathroom this morning. She has eaten meals. She says she is ready to go home. She has had previous total shoulder arthroplasty and contralateral arm. She says she has equipment at home to do rehabilitation. Patient denies any nausea/vomiting, chest pain, fever, shortness of breath. Objective - Vital Signs Vital signs: Vital Signs Temp 98.0 F 08/28/20 05:00 Pulse 79 08/28/20 08:30 Resp 16 08/28/20 08:30 BP 108/72 08/28/20 08:30 Pulse Ox 96 08/28/20 08:30 Intake & Output 08/27/20 08/28/20 08/28/20 18:59 06:59 18:59 Intake Total 1101 Output Total 100 Balance 1001 Weight 77.6 kg Intake: IV 1101 Output: Estimated Blood Loss 100 Other: # Voids 1 - Exam : Incision is clean, dry, and intact. The exofin fusion tape is in good condition. There is minimal soft tissue swelling and ecchymosis surrounding the medial, lateral, posteror aspects of the incision. Calf is soft, no tenderness with palpation. Sensory exam to light touch throughout the extremity is intact Assessment and Plan Plan: Assessment: Postoperative day 1 status post left total shoulder arthroplasty Plan: 1. Continue with medical management. 2. Pain management - stable at this time. Go home with [place] 7.5 mg/325 mg. Use stool softener as needed. 3. Continue with physical therapy, including pendular exercises. 4. DVT prophylaxis - continue home medication - Eliquis 5 mg BID 5. Discharge planning. 6. Anticipated discharge today, 08/28/2020. Time with Patient: Less than 30
--- NOTE | 2020-08-28 09:56 | P.CONS ---
History of Present Illness - Reason for Consult Consult date: 08/28/20 Medical management - Chief Complaint Left shoulder pain - History of Present Illness This is a 65-year-old female with past medical history noted below that was admitted to the hospital for elective left total shoulder arthroplasty. Patient is postoperative day #1. She is doing fairly well. Her pain is well- controlled. She does not have any concerns or complaints. She was out of bed with no difficulty. I was asked to see her for medical management. Review of Systems Review of system: 14 points review of systems were obtained and were negative except to what were mentioned in the HPI. 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 tachycardia, hx DVT & PE 2018-family hx. Factor 5-pt states her testing was neg. for, fully vaccinated for covid Last Myocardial Infarction Date:: 2018 History of Any Multi-Drug Resistant Organisms: None Reported Past Surgical History: Appendectomy, Section, Cholecystectomy, Heart Catheterization With Stent, Hernia Repair, Hysterectomy, Orthopedic Surgery, Tonsillectomy Additional Past Surgical History / Comment(s): rt radial nerve release, egd, rt shoulder repl, oleksandr fundoplication, florence filter Past Anesthesia/Blood Transfusion Reactions: No Reported Reaction Additional Past Anesthesia/Blood Transfusion Reaction / Comm: no problems w/blood transfusions Date of Last Stent Placement:: 2017 Smoking Status: Former smoker - Past Family History Mother Family Medical History: Deep Vein Thrombosis (DVT) Additional Family Medical History / Comment(s): at age 42 from blood clot. Father Family Medical History: Cancer Brother(s) Family Medical History: Blood Disorder, CVA/TIA, Deep Vein Thrombosis (DVT) Additional Family Medical History / Comment(s): factor V Sister(s) Family Medical History: Deep Vein Thrombosis (DVT) Medications and Allergies Home Medications Medication Instructions Recorded Confirmed Type DULoxetine HCL [Cymbalta] 60 mg PO HS 06/09/17 08/21/20 History Topiramate [Topamax] 50 mg PO DAILY 06/09/17 08/21/20 History Aspirin 81 mg PO HS 09/08/17 08/21/20 History diazePAM [Valium] 2 mg PO HS 09/08/17 08/21/20 History Atorvastatin [Lipitor] 80 mg PO HS #90 tab 09/14/17 08/21/20 Rx Apixaban [Eliquis] 5 mg PO BID 06/30/18 08/21/20 History Fluticasone/Umeclidin/Vilanter 1 puff INHALATION RT-DAILY 06/30/18 08/21/20 History [Trelegy Ellipta 100-62.5-25] Meclizine [Antivert] 25 mg PO TID 06/30/18 08/21/20 History Metoprolol Succinate [Toprol Xl] 50 mg PO DAILY 10/27/18 08/21/20 History Levothyroxine Sodium [Synthroid] 150 mcg PO DAILY 08/28/19 08/21/20 History rOPINIRole HCL [Requip] 0.5 mg PO TID 08/28/19 08/21/20 History Albuterol Inhaler [Ventolin Hfa 2 puff INHALATION RT-QID PRN 12/05/19 08/21/20 History Inhaler] Diphenoxylate HCl/Atropine 1 - 2 tab PO BID 08/21/20 08/21/20 History [Lomotil 2.5-0.025 mg Tablet] Montelukast [Singulair] 10 mg PO HS 08/21/20 08/21/20 History Omeprazole [PriLOSEC] 20 mg PO AC-SUPPER 08/21/20 08/21/20 History Zolpidem [Ambien] 10 mg PO HS PRN 08/21/20 08/21/20 History HYDROcodone/APAP 7.5-325MG [[place] 1 each PO Q6HR PRN #32 tab 08/28/20 Rx 7.5] Allergies Allergy/AdvReac Type Severity Reaction Status Date / Time levofloxacin [From Levaquin] AdvReac TENDONITIS Verified 08/27/20 06:48 Physical Exam Vitals: Vital Signs Temp Pulse Pulse Pulse Resp BP Pulse Ox 08/28/20 08:30 79 16 108/72 96 08/28/20 07:51 80 16 08/28/20 07:39 85 16 96 08/28/20 05:00 98.0 F 75 16 114/74 99 08/27/20 23:25 107/69 08/27/20 21:33 92 08/27/20 21:19 88 08/27/20 20:00 98.0 F 100 16 92 L 08/27/20 14:37 88 103/71 08/27/20 14:00 97.8 F 85 16 103/71 93 L 08/27/20 12:37 98.0 F 81 18 103/65 94 L 08/27/20 11:45 85 16 94/60 96 08/27/20 11:30 80 16 81/53 96 08/27/20 11:15 84 16 86/51 96 08/27/20 11:00 85 16 87/54 95 08/27/20 10:47 78 16 99/55 100 08/27/20 10:30 85 16 99/60 95 08/27/20 10:15 80 16 117/63 95 08/27/20 10:00 90 16 123/75 95 Intake and Output 08/27/20 08/28/20 08/28/20 22:59 06:59 14:59 Other: # Voids 1 General: The patient is awake and alert, in no distress Eye: there is normal conjunctiva bilaterally. Neck: The neck is supple, there is no JVD. Cardiovascular: Normal S1-S2, no S3-S4, no murmurs. Respiratory: Lungs clear to auscultation bilaterally Gastrointestinal: Abdomen is soft, nontender Musculoskeletal: There is no pedal edema. Left arm in sling Neurological:. Speech is normal. Skin: Skin is warm and dry Assessment and Plan Assessment: 1. Postoperative day #1 status post left total shoulder arthroplasty. Continue postoperative care per orthopedic surgery. Pain is well controlled. 2. Chronic medical problems: Essential hypertension, hypothyroidism, underlying COPD with no evidence of exacerbation. CBC was ordered this morning. If lab work within normal/acceptable range patient is medically cleared for discharge. She should continue her regular home medications. Follow-up with PCP as directed.
[2020-08-28 10:39] LABS: Basophils % (A) 0 %; Eosinophils % (A) 0 %; HGB 11.2 gm/dL (11.4-16.0); Lymphocytes % (A) 21 %; MCH 30.3 pg (25.0-35.0); MCHC 32.1 g/dL (31.0-37.0); MCV 94.3 fL (80.0-100.0); Mean Platelet Volume 7.2; Monocytes # (A) 0.5 k/uL (0-1.0); Monocytes % (A) 5 %; Neutrophils # (A) 7.1 k/uL (1.3-7.7); Neutrophils % (A) 72 %; Platelet Count 206 k/uL (150-450); RBC 3.71 m/uL (3.80-5.40); RDW 13.2 % (11.5-15.5); WBC 9.8 k/uL (3.8-10.6)
[2020-08-28 11:49] VITALS: RESP 18
[2020-08-28 11:58] VITALS: PULSE 80
== END 2020-08-28 13:17 | disposition home or self-care (01) | DRG 483 ==
LOC: 2ORMAIN 05:58 → 5NMEDONC 11:49
PROVIDERS: ADMIT Family Medicine; ATTEND Orthopaedic Surgery
PROC: 0RRK0JZ Replacement of Left Shoulder Joint with Synthetic Substitute, Open Approach (ICD-10-PCS; principal; 2020-08-27 07:45)
DX: M19.012 Primary osteoarthritis, left shoulder (principal); D68.2 Hereditary deficiency of other clotting factors; I25.2 Old myocardial infarction; J44.9 Chronic obstructive pulmonary disease, unspecified; M81.0 Age-related osteoporosis without current pathological fracture; Z79.01 Long term (current) use of anticoagulants; Z79.82 Long term (current) use of aspirin; Z79.890 Hormone replacement therapy; E03.9 Hypothyroidism, unspecified; K21.9 Gastro-esophageal reflux disease without esophagitis; Z20.822 Contact with and (suspected) exposure to COVID-19; Z83.2 Family history of diseases of the blood and blood-forming organs and certain disorders involving the immune mechanism; Z82.3 Family history of stroke; Z80.9 Family history of malignant neoplasm, unspecified; H54.61 Unqualified visual loss, right eye, normal vision left eye; I10 Essential (primary) hypertension; I25.10 Atherosclerotic heart disease of native coronary artery without angina pectoris; Z83.3 Family history of diabetes mellitus; Z79.899 Other long term (current) drug therapy; Z86.711 Personal history of pulmonary embolism; Z86.718 Personal history of other venous thrombosis and embolism; Z87.891 Personal history of nicotine dependence; Z90.710 Acquired absence of both cervix and uterus; Z95.5 Presence of coronary angioplasty implant and graft; Z96.611 Presence of right artificial shoulder joint; Z90.89 Acquired absence of other organs; Z90.49 Acquired absence of other specified parts of digestive tract; Z87.01 Personal history of pneumonia (recurrent); Z95.828 Presence of other vascular implants and grafts
CPT/HCPCS: 64415; 76942; 85025; 87635; 88300; 94640; 94760

== ENCOUNTER → 2021-02-22 | Outpatient (CLI) | payer MEDICARE, OTHER ==
--- NOTE | 2021-02-22 09:44 | CT ---
EXAMINATION TYPE: CT lumbar spine wo con DATE OF EXAM: 02/22/2021 9:21 AM COMPARISON: None HISTORY: low back pain CT DLP: 1142 mGycm Automated exposure control for dose reduction was used. Unenhanced CT of the lumbar spine was performed. Bone and soft tissue window settings are submitted as well as coronal and sagittal reconstructions. L1-L2: Normal disc space height. No disc herniation protrusion or central stenosis. No facet joint arthropathy. No evidence for foraminal encroachment. L2-L3: Normal disc space height. No disc herniation protrusion or central stenosis. No facet joint arthropathy. No evidence for foraminal encroachment. L3-L4: Mild degenerative disc space narrowing with posterior disc bulge. Mild effacement ventral thec al sac. No evidence of herniation or central stenosis. Foramina are patent. L4-L5: Mild degenerative disc disease with posterior disc bulge. 3 mm anterolisthesis L4 and L5 resul ting in mild central stenosis. Hypertrophy ligamentum flavum and facet joint arthropathy. L5-S1: Normal disc space height. No disc herniation protrusion or central stenosis. No facet joint arthropathy. No evidence for foraminal encroachment. IMPRESSION: 1. Degenerative disc disease as discussed. 2. Mild central stenosis at L4-5.
--- NOTE | 2021-02-22 09:46 | CT ---
EXAMINATION TYPE: CT cervical spine wo con DATE OF EXAM: 02/22/2021 COMPARISON: 09/08/2017 HISTORY: Lt arm and neck pain and numbess CT DLP: [address] of the cervical spine was performed with bone and soft tissue window settings submitted . Coronal and sagittal reconstruction is obtained. There is normal alignment and prevertebral soft tissues. Mild degenerative disc space narrowing identified at C5-6 and C6-7. Minimal posterior disc b ulge. Mild degenerative change of the cervical apophyseal joints at each of these levels. No signific ant foraminal encroachment. No herniation or central stenosis. The remaining levels are within normal limits. IMPRESSION: 1. Mild degenerative disc disease and disc bulging at C5-6 and C6-7.
== END | disposition home or self-care (01) ==
LOC: RADCTMAIN 08:48
PROVIDERS: ATTEND Family Medicine
DX: M51.36 Other intervertebral disc degeneration, lumbar region (principal); M43.16 Spondylolisthesis, lumbar region; M51.26 Other intervertebral disc displacement, lumbar region; M48.061 Spinal stenosis, lumbar region without neurogenic claudication; M50.323 Other cervical disc degeneration at C6-C7 level; M50.223 Other cervical disc displacement at C6-C7 level; M47.812 Spondylosis without myelopathy or radiculopathy, cervical region
CPT/HCPCS: 72125; 72131

== ENCOUNTER → 2022-08-20 | Outpatient (CLI) | payer MEDICARE, OTHER ==
[2022-08-20 20:56] LABS: HCT 41.8 % (37.2-46.3); HGB 13.3 g/dL (12.0-15.0); MCH 30.9 pg (27.0-32.0); MCHC 31.8 g/dL (32.0-37.0); NRBC Per 100 WBC 0 /100 WBCS (0.0-0.0); Platelet Count 300 X 10*3/uL (140-440); RBC 4.31 X 10*6/uL (4.10-5.20); RDW 13.9 % (11.5-14.5); WBC 9.44 X 10*3/uL (4.50-10.00)
[2022-08-20 21:31] LABS: African American GFR (CKD) 76.1 (60.0-200.0); Anion Gap 9.9 mmol/L (10.00-18.00); Blood Urea Nitrogen 23.5 mg/dL (9.0-27.0); Carbon Dioxide 23.1 mmol/L (20.0-27.5); Non-African American GFR(CKD) 65.7 (60.0-200.0); Potassium 4.1 mmol/L (3.5-5.5)
== END | disposition home or self-care (01) ==
LOC: LABWHC1 12:42
PROVIDERS: ATTEND Internal Medicine Interventional Cardiology
DX: Z01.812 Encounter for preprocedural laboratory examination (principal); I25.10 Atherosclerotic heart disease of native coronary artery without angina pectoris
CPT/HCPCS: 36415; 80051; 82565; 84520; 85027

== ENCOUNTER 2022-08-24 07:45 | Day surgery (SDC) | payer MEDICARE, OTHER ==
[~2022-08-24 07:45] MED LIST changes: -ACETAMINOPHEN TAB 500 MG TAB PO PRN; +ALPRAZolam 0.25 MG TAB PO PRN; +ALPRAZolam 0.5 MG TAB PO PRN; +ASPIRIN 325 MG TAB PO STA; -DEXAMETHASONE SOD PHOSPHATE 4 MG/ML 1 ML VIAL IV ONE; -LIDOCAINE 1% (10MG/ML) FOR IV START INTRADERMA PRN; -MELOXICAM 7.5 MG TAB PO PRN; -MIDAZOLAM 2 MG/2 ML VIAL IV PRN; +NITROGLYCERIN SL TABS 0.4 MG TAB SUBLINGUAL PRN; -ONDANSETRON 4 MG/2 ML VIAL IVP ONE; -TRANEXAMIC ACID 1,000 MG in SODIUM CHLORIDE 0.9% 100 ML IVPB PRN; -VANCOMYCIN 1,250 MG in SODIUM CHLORIDE 0.9% 250 ML IVPB PRN
[2022-08-24] MEDS ORDERED: SODIUM CHLORIDE 0.9% 1,000 ML IV ONE (08:23)
[2022-08-24] MEDS ORDERED: IV FLUID CONTINUATION 1,000 ML IV ONE ×2 (08:29)
[2022-08-24] MEDS ORDERED: VERAPAMIL 2.5 MG/ML 2 ML AMP ONE (08:35)
[2022-08-24] MEDS ORDERED: HEPARIN SODIUM 1,000 UN/ML (10ML VL) ONE (08:36)
[2022-08-24] MEDS ORDERED: MIDAZOLAM 2 MG/2 ML VIAL IV ONE (08:48)
[2022-08-24] MEDS ORDERED: LIDOCAINE 1% INJ 10MG/ML (5 ML VIAL-PF) SQ ONE (08:51)
[2022-08-24] MEDS ORDERED: VERAPAMIL SYRINGE (5 MG/10 ML) INTRAARTER ONE (08:52)
[2022-08-24] MEDS: HEPARIN SODIUM 1,000 UN/ML (10ML VL) IV ONE ×3 (08:55→09:53)
[2022-08-24] MEDS ORDERED: fentaNYL (PF) 50 MCG/ML 2 ML AMP ONE (09:07)
[2022-08-24] MEDS ORDERED: fentaNYL (PF) 50 MCG/ML 2 ML AMP IV ONE (09:09)
[2022-08-24] MEDS ORDERED: ADENOSINE 90 MG in SODIUM CHLORIDE 0.9% 60 ML IVP ONE (09:25)
[2022-08-24] MEDS ORDERED: CLOPIDOGREL 75 MG TAB ONE (09:28)
[2022-08-24] MEDS ORDERED: HYDROmorphone 0.5 MG/0.5 ML SYRINGE IVP ONE (09:31)
[2022-08-24] MEDS ORDERED: CLOPIDOGREL 75 MG TAB PO ONE (09:31)
[2022-08-24] MEDS ORDERED: IOPAMIDOL-370 100ML BTL INJ ONE ×2 (09:36→09:52)
[2022-08-24] MEDS ORDERED: NITROGLYCERIN 1000MCG/10ML SYRINGE INTRACORON ONE (09:45)
[2022-08-24] MEDS ORDERED: ALBUTEROL NEBULIZED 2.5 MG/3 ML INHALATION PRN (09:53)
[2022-08-24] MEDS ORDERED: RX INFO: IV CONTRAST WAS GIVEN 1 EACH MISC MISCELLANE PRN (09:54)
[2022-08-24] MEDS ORDERED: MAG HYDROX/AL HYDROX/SIMETH 30 ML CUP PO PRN (09:54)
[2022-08-24] MEDS ORDERED: NITROGLYCERIN SL TABS 0.4 MG TAB SUBLINGUAL PRN (09:54)
[2022-08-24] MEDS ORDERED: ATROPINE SULFATE 0.1 MG/ML 10ML SYRINGE IV PRN (09:54)
[2022-08-24] MEDS ORDERED: ZOLPIDEM 5 MG TAB PO PRN (09:54)
[2022-08-24] MEDS ORDERED: SODIUM CHLORIDE 0.9% 1,000 ML in EMPTY BAG 1 BAG IV SCH (10:00)
--- NOTE | 2022-08-24 10:01 | P.PCN ---
Date of Procedure: 08/24/22 Operative Findings: CARDIAC CATHETERIZATION AND PERCUTANEOUS CORONARY INTERVENTION PERFORMING PHYSICIAN: Luis M Coombs MD, [facility] PROCEDURE PERFORMED: 1. Selective right and left coronary angiogram 2. Successful stenting of proximal LAD using 3.5 x 15 mm Xience SEB with an excellent angiographic results 3. Adjunctive use off FFR and intravascular ultrasound INDICATION: Chest discomfort in the 67-year-old female patient was known CAD and prior stenting of the LAD underwent myocardial perfusion imaging stress test came in to be abnormal COMPLICATION: None APPROACH: Right radial artery LEVEL OF SEDATION: Moderate with the sedation time off 58 minutes PROCEDURE DESCRIPTION: After obtaining an informed consent the patient was brought to the cardiac clinical laboratory director. The right radial artery was cannulated using micropuncture technique, the micropuncture wire passed easily then I placed a 6-Ind[place] sheath. I gave the patient 2 mg of verapamil intra-arterial and initially 6000 units of heparin and intravenous. Additional heparin was given throughout the procedure with continuous ACT monitoring. Selective right and left coronary angiogram performed with JR4 and JL 3.5 catheters. After that I did intervene on the LAD. The procedure was completed was no complication SELECTIVE CORONARY ANGIOGRAM: The right coronary artery: Large caliber vessel and dominant vessel appears to be angiographically normal. Left main: Is angiographically normal. Bifurcates into and I'll see asked and LAD The left circumflex: Large caliber vessel nondominant vessel. The LCx system appeared to have mild disease only. The left anterior descending artery: The proximal LAD by the bifurcation of the diagonal branch has a lesion appeared to be in the range of 60%. The lesion documented to be flow-limiting by performing Doppler wire. After that the LAD appears to be angiographically normal PCI OF THE LAD: After zeroing the Doppler wire and equalizing between the Doppler wire and guiding catheter which was JL3.5 guiding catheter we did initially and IFR and that came in to be none flow-limiting but subsequently with adenosine infusion IV we did an FFR and that came in to be flow-limiting an 0.78. At that point I decided to intervene on the LAD. Intravascular ultrasound was performed and showed a diameter of the LAD around 3.5 mm. Predilatation was performed using 3 mm balloon before I deployed 3.5 x 15 mm stent where the stent was positioned under fluoroscopy guidance and deployed under 16 mitzi for 20 seconds. Postdilatation was performed using 3.75 mm noncompliant balloon which was also inflated under 16 mitzi. Final angiogram showed excellent angiographic results and the procedure was completed with no complication CONCLUSION: Intermediate disease involving a calcified proximal LAD. FFR was performed and was ischemic. I did successful stenting of the LAD POSTPROCEDURE MANAGEMENT: 1. Dual antiplatelet therapy using aspirin and Plavix for at least 6 month 2. Aggressive cholesterol control 3. Follow-up with the patient
[2022-08-24] MEDS: SODIUM CHLORIDE 0.9% 1,000 ML in EMPTY BAG 1 BAG IV SCH ×2 (10:19→16:59)
[2022-08-24] MEDS ORDERED: CALCIUM CARBONATE 500 MG CHEWABLE PO PRN (10:27)
[2022-08-24] MEDS ORDERED: METOPROLOL TARTRATE 50 MG TAB PO STA (10:41)
[2022-08-24] MEDS: IPRATROPIUM 0.5 MG/2.5 ML NEBU INHALATION SCH ×3 (11:50→18:24)
[2022-08-24] MEDS ORDERED: hydrALAZINE HCL 20 MG/ML 1 ML VIAL IVP ONE (11:56)
[2022-08-24 12:45] LABS: Glucose,Whole Blood 131 mg/dL (70-110)
[2022-08-24] MEDS: ONDANSETRON 4 MG/2 ML VIAL IVP PRN ×2 (13:57→20:16)
[2022-08-24 16:58] LABS: Glucose,Whole Blood 128 mg/dL (70-110)
[2022-08-24] MEDS: HYDROcodone/APAP 7.5-325MG 1 EACH TAB PO SCH ×2 (16:59→21:01)
[2022-08-24 19:30] VITALS: RESP 17
[2022-08-24] MEDS: METOPROLOL TARTRATE 50 MG TAB PO SCH (20:17)
[2022-08-24] MEDS: MECLIZINE 25 MG TAB PO SCH (20:17)
[2022-08-24] MEDS ORDERED: ARIPiprazole 10 MG TAB PO SCH (21:00)
[2022-08-24] MEDS ORDERED: ATORVASTATIN 80 MG TAB PO SCH (21:00)
[2022-08-24] MEDS ORDERED: ASPIRIN 81 MG PO SCH (21:00)
[2022-08-24] MEDS ORDERED: DULoxetine HCL 60 MG CAPSULE.DR PO SCH (21:00)
[2022-08-24 21:25] LABS: Glucose,Whole Blood 144 mg/dL (70-110)
[2022-08-25 06:27] LABS: Basophils % (A) 0 %; Eosinophils # (A) 0.1 k/uL (0-0.7); Eosinophils % (A) 1 %; HCT 47.4 % (34.0-46.0); HGB 15.4 gm/dL (11.4-16.0); Lymphocytes # (A) 2.3 k/uL (1.0-4.8); Lymphocytes % (A) 15 %; MCH 31.5 pg (25.0-35.0); MCHC 32.6 g/dL (31.0-37.0); MCV 96.7 fL (80.0-100.0); Mean Platelet Volume 7.3; Monocytes # (A) 0.9 k/uL (0-1.0); Monocytes % (A) 6 %; Neutrophils # (A) 12.3 k/uL (1.3-7.7); Neutrophils % (A) 77 %; Platelet Count 356 k/uL (150-450); RDW 13.4 % (11.5-15.5); WBC 15.9 k/uL (3.8-10.6)
[2022-08-25 06:29] LABS: African American GFR (CKD) >90 (>60 ml/min/1.73 sqM); Anion Gap 11 mmol/L; Blood Urea Nitrogen 13 mg/dL (7-17); Calcium 9.3 mg/dL (8.4-10.2); Carbon Dioxide 18 mmol/L (22-30); Chloride 103 mmol/L (98-107); Glucose 144 mg/dL (74-99); Non-African American GFR(CKD) 88 (>60 ml/min/1.73 sqM); Potassium 4.2 mmol/L (3.5-5.1); Sodium 132 mmol/L (137-145)
[2022-08-25] MEDS ORDERED: LEVOTHYROXINE 75 MCG TAB PO SCH (06:30)
[2022-08-25 06:31] LABS: African American GFR (CKD) >90 (>60 ml/min/1.73 sqM); Non-African American GFR(CKD) >90 (>60 ml/min/1.73 sqM)
[2022-08-25 06:53] LABS: Glucose,Whole Blood 123 mg/dL (70-110)
[2022-08-25] MEDS ORDERED: SYMBICORT 160-4.5 MCG INHALER INHALATION SCH (08:00)
[2022-08-25 08:42] VITALS: BP 121/83; TEMP 98.1
[2022-08-25] MEDS ORDERED: APIXABAN 2.5 MG TABLET PO SCH (09:00)
[2022-08-25] MEDS ORDERED: CLOPIDOGREL 75 MG TAB PO SCH (09:00)
[2022-08-25] MEDS ORDERED: DAPAGLIFLOZIN PROPANEDIOL 10 MG TABLET PO SCH (09:00)
[2022-08-25] MEDS ORDERED: TOPIRAMATE 25 MG TAB PO SCH (09:00)
[2022-08-25] MEDS: IPRATROPIUM 0.5 MG/2.5 ML NEBU INHALATION SCH (09:06)
[2022-08-25 09:17] VITALS: PULSE 84
[2022-08-25] MEDS: MECLIZINE 25 MG TAB PO SCH (09:37)
[2022-08-25] MEDS: SODIUM CHLORIDE 0.9% 1,000 ML in EMPTY BAG 1 BAG IV SCH (09:38)
[2022-08-25] MEDS: METOPROLOL TARTRATE 50 MG TAB PO SCH (09:38)
[2022-08-25] MEDS: HYDROcodone/APAP 7.5-325MG 1 EACH TAB PO SCH (09:39)
--- NOTE | 2022-08-25 09:57 | P.DS ---
Providers Attending physician: Luis M Coombs Consults: 08/24/22 09:55 Consult Physician Routine Consulting Provider: [facility] Consult Reason/Comments: Post Interventional Patient Do you want consulting provider notified?: Already Contacted Primary care physician: Bon Briggs MD Hospital Course: Patient is 67-year-old patient who recently underwent myocardial perfusion imaging stress test which came in to be abnormal. She underwent cardiac catheterization yesterday with Dr. Coombs. Patient was found to have intermediate disease involving a calcified proximal LAD. FFR was performed and was found to be ischemic at 0.78. Patient underwent stenting of the LAD. The patient is doing well this morning. She denies any chest pain or pressure. Denies any shortness of breath. Right radial cath site with pulse present. Vital signs are stable. The patient is being discharged home on Aspirin, Plavix, and ELiquis. The patient's Eliquis dose was decreased to 2.5mg BID per Dr. Coomsb secondary to triple therapy. The patient was deemed stable for discharge home today per Dr. Coombs. Please see EMR for further hospital course details. Discharge diagnosis 1. Coronary artery disease, status post stenting of the LAD Nurse practitioner note has been reviewed by physician. Signing provider agrees with the documented findings, assessment, and plan of care. Plan - Discharge Summary Discharge Rx Participant: No New Discharge Prescriptions: New Clopidogrel [Plavix] 75 mg PO DAILY #90 tablet Apixaban [Eliquis] 2.5 mg PO BID #60 tab Continue Aspirin 81 mg PO HS Discontinued Apixaban [Eliquis] 5 mg PO BID No Action DULoxetine HCL [Cymbalta] 60 mg PO HS Topiramate [Topamax] 50 mg PO DAILY Atorvastatin [Lipitor] 80 mg PO HS #90 tab Meclizine [Antivert] 50 mg PO BID Levothyroxine Sodium [Synthroid] 150 mcg PO DAILY Albuterol Inhaler [Ventolin Hfa Inhaler] 2 puff INHALATION RT-QID PRN PRN Reason: Shortness Of Breath ARIPiprazole [Abilify] 10 mg PO HS Dapagliflozin Propanediol [Farxiga] 10 mg PO DAILY Budesonide/Glycopyr/Formoterol [Breztri Aerosphere Inhaler] 1 puff INHALATION DAILY Metoprolol Tartrate [Lopressor] 100 mg PO BID HYDROcodone/APAP 7.5-325MG [[place] 7.5] 1 each PO TID Discharge Medication List DULoxetine HCL [Cymbalta] 60 mg PO HS 06/09/17 [History] Topiramate [Topamax] 50 mg PO DAILY 06/09/17 [History] Aspirin 81 mg PO HS 09/08/17 [History] Atorvastatin [Lipitor] 80 mg PO HS #90 tab 09/14/17 [Rx] Meclizine [Antivert] 50 mg PO BID 06/30/18 [History] Levothyroxine Sodium [Synthroid] 150 mcg PO DAILY 08/28/19 [History] Albuterol Inhaler [Ventolin Hfa Inhaler] 2 puff INHALATION RT-QID PRN 12/05/19 [History] ARIPiprazole [Abilify] 10 mg PO HS 08/19/22 [History] Budesonide/Glycopyr/Formoterol [Breztri Aerosphere Inhaler] 1 puff INHALATION DAILY 08/19/22 [History] Dapagliflozin Propanediol [Farxiga] 10 mg PO DAILY 08/19/22 [History] HYDROcodone/APAP 7.5-325MG [[place] 7.5] 1 each PO TID 08/19/22 [History] Metoprolol Tartrate [Lopressor] 100 mg PO BID 08/19/22 [History] Apixaban [Eliquis] 2.5 mg PO BID #60 tab 08/25/22 [Rx] Clopidogrel [Plavix] 75 mg PO DAILY #90 tablet 08/25/22 [Rx] Follow up Appointment(s)/Referral(s): Luis M Coombs MD [STAFF PHYSICIAN] - 1 Week (APPOINTMENT MADE ON August @ 4:45PM ) Patient Instructions/Handouts: Moderate Sedation (DC), After Radial Heart Catheterization (GEN), Left Heart Catheterization (DC) Activity/Diet/Wound Care/Special Instructions: Continue Aspirin, Plavix, and Eliquis. Do not stop any of these without speaking to Dr. Coombs *NO LIFTING, PUSHING, OR PULLING ANYTHING OVER 5 POUNDS FOR 5 DAYS *NO DRIVING FOR 3 DAYS *YOU CAN REMOVE YOUR DRESSING TOMORROW AND SHOWER AT THAT TIME. DO NOT SUBMERSE YOUR PUNCTURE SITE IN WATER FOR A FEW DAYS TO PREVENT INFECTION - SO NO TUB BATHS, POOLS, HOT TUBS, DISHES...ETC *ANY SIGNS OF BLEEDING (HARDNESS, SWELLING, OR EXCESSIVE BRUISING) HOLD DIRECT PRESSURE ON YOUR PUNCTURE SITE AND COME TO THE NEAREST EMERGENCY ROOM TO GET YOUR PUNCTURE SITE LOOKED AT - DO NOT DRIVE YOURSELF! EITHER CALL EMS OR HAVE SOMEONE DRIVE YOU!
== END 2022-08-25 11:26 | disposition home or self-care (01) ==
LOC: CATHCVL 07:45 → 6NMEDSUR 09:49 → CATHCVL 08-25 11:26
PROVIDERS: ATTEND Internal Medicine Interventional Cardiology
DX: I25.10 Atherosclerotic heart disease of native coronary artery without angina pectoris (principal); I10 Essential (primary) hypertension; E78.5 Hyperlipidemia, unspecified; E11.9 Type 2 diabetes mellitus without complications; F17.210 Nicotine dependence, cigarettes, uncomplicated; I25.9 Chronic ischemic heart disease, unspecified; Z79.02 Long term (current) use of antithrombotics/antiplatelets; Z86.718 Personal history of other venous thrombosis and embolism; Z95.5 Presence of coronary angioplasty implant and graft; Z79.82 Long term (current) use of aspirin; Z79.899 Other long term (current) drug therapy
CPT/HCPCS: 99152; 99153 ×3; 94640 ×2; 94760; 93571; 92978; 93454; 80048; 82565; 85025; C9600; C1887 ×2; C1769 ×2; C1894; C1725 ×2; C1753; C1874; J2250; J0360; J2405; J2001; J3010; J1644; J0153; J1170; Q9967

== ENCOUNTER 2024-01-10 09:30 | Day surgery (SDC) | payer MEDICARE, OTHER ==
[2024-01-10] MEDS: IV FLUID CONTINUATION 1,000 ML IV ONE (09:55)
[2024-01-10] MEDS ORDERED: LACTATED RINGERS 1,000 ML IV SCH (09:56)
[2024-01-10 10:06] VITALS: TEMP 97.3
[2024-01-10 10:27] LABS: Glucose,Whole Blood 98 mg/dL (70-110)
[2024-01-10] MEDS ORDERED: PROPOFOL 10 MG/ML 20 ML VIAL IV ONE (11:29)
--- NOTE | 2024-01-10 11:31 | P.GSHP ---
History of Present Illness H&P Date: 01/10/24 Chief Complaint: Screening colonoscopy Is a 68-year-old female presents today for screening colonoscopy. Patient denies any significant GI complaints. Past Medical History Past Medical History: Asthma, COPD, Diabetes Mellitus, Deep Vein Thrombosis (DVT), Eye Disorder, Fibromyalgia, Hyperlipidemia, Hypertension, Myocardial Infarction (AR), Osteoarthritis (OA), Pneumonia, Pulmonary Embolus (PE), Sleep Apnea/CPAP/BIPAP, Thyroid Disorder Additional Past Medical History / Comment(s): past hx. anemia, hx. of vertigo- has to take meclizine, blind rt eye since childhood-does have peripheral vision, lt eye hx. of macular pucker, SOB w/exertion, recent stress test, O2 @hs 2l, past hx. colon polyps, 2018-DVT & PE's, uses CPAP, recent kidney stones-seen @[facility], hx. fatty liver, DDD, herniated discs in cervical & lower lumbar area Last Myocardial Infarction Date:: unknown History of Any Multi-Drug Resistant Organisms: None Reported Past Surgical History: Appendectomy, Section, Heart Catheterization With Stent, Hernia Repair, Hysterectomy, Orthopedic Surgery, Tonsillectomy Additional Past Surgical History / Comment(s): rt radial nerve release, egd, elizabeth. shoulder replaced, florence filter, hiatal hernia repair, ovarian cysts removed Past Anesthesia/Blood Transfusion Reactions: No Reported Reaction Additional Past Anesthesia/Blood Transfusion Reaction / Comment(s): no problems w/blood transfusions Date of Last Stent Placement:: 2022 Smoking Status: Former smoker - Past Family History Mother Family Medical History: Deep Vein Thrombosis (DVT) Additional Family Medical History / Comment(s): at age 42 from blood clot. Father Family Medical History: Cancer Brother(s) Family Medical History: Blood Disorder, CVA/TIA, Deep Vein Thrombosis (DVT) Additional Family Medical History / Comment(s): factor 2 Sister(s) Family Medical History: Deep Vein Thrombosis (DVT) Medications and Allergies Home Medications Medication Instructions Recorded Confirmed Type DULoxetine HCL [Cymbalta] 60 mg PO HS 06/09/17 01/10/24 History Aspirin 81 mg PO HS 09/08/17 01/10/24 History Atorvastatin [Lipitor] 80 mg PO HS #90 tab 09/14/17 01/10/24 Rx Meclizine [Antivert] 25 mg PO BID PRN 06/30/18 01/10/24 History Levothyroxine Sodium [Synthroid] 175 mcg PO DAILY 08/28/19 01/04/24 History Albuterol Inhaler [Ventolin Hfa 2 puff INHALATION RT-QID PRN 12/05/19 01/10/24 History Inhaler] Metoprolol Tartrate [Lopressor] 100 mg PO BID 08/19/22 01/04/24 History Apixaban [Eliquis] 5 mg PO BID 01/04/24 01/10/24 History Fluticasone/Umeclidin/Vilanter 1 puff INHALATION DAILY 01/04/24 01/10/24 History [Trelegy Ellipta 200-62.5-25] HYDROcodone/APAP 10-325MG [[place] 1 tab PO TID 01/04/24 01/10/24 History 10-325] Semaglutide [Ozempic] 0.25 mg SQ TUFR 01/04/24 01/04/24 History Allergies Allergy/AdvReac Type Severity Reaction Status Date / Time levofloxacin [From Levuin] AdvReac TENDONITIS Verified 01/10/24 10:03 Surgical - Exam Vital Signs Temp Pulse Resp BP Pulse Ox 97.3 F L 59 L 16 141/83 97 01/10/24 10:05 01/10/24 10:05 01/10/24 10:05 01/10/24 10:01/10/24 10:05 - General well developed, well nourished, no distress - Eyes PERRL - ENT normal pinna - Neck no masses - Respiratory normal expansion - Cardiovascular Rhythm: regular - Abdomen Abdomen: soft, non tender Assessment and Plan Assessment: Will perform screening colonoscopy.
--- NOTE | 2024-01-10 11:43 | P.OP ---
Date of Procedure: 01/10/24 Preoperative Diagnosis: Screening colonoscopy Procedure(s) Performed: Colonoscopy Anesthesia: MAC Condition: stable Disposition: PACU Description of Procedure: The patient was placed on the endoscopy table in the lateral position. She received IV sedation. Revealed no abnormalities. The flexible colonoscope was then placed patient anus and passed throughout the entire colon. The ileocecal valve was visualized. The cecum, ascending and transverse colon appeared normal. In the descending and sigmoid colon there is mild diverticular changes. Scope was brought back to the rectum and this appeared normal. Scope withdrawn for the patient.
[2024-01-10 12:04] VITALS: BP 117/69; PULSE 50; RESP 16
== END 2024-01-10 12:22 | disposition home or self-care (01) ==
LOC: ORWHC2ENDO 09:30
PROVIDERS: ATTEND Surgery
DX: Z12.11 Encounter for screening for malignant neoplasm of colon (principal); K57.30 Diverticulosis of large intestine without perforation or abscess without bleeding; I10 Essential (primary) hypertension; E78.5 Hyperlipidemia, unspecified; G47.30 Sleep apnea, unspecified; J44.89 Other specified chronic obstructive pulmonary disease; M79.7 Fibromyalgia; E07.9 Disorder of thyroid, unspecified; K76.0 Fatty (change of) liver, not elsewhere classified; E11.9 Type 2 diabetes mellitus without complications; I25.2 Old myocardial infarction; Z99.81 Dependence on supplemental oxygen; Z79.890 Hormone replacement therapy; Z79.01 Long term (current) use of anticoagulants; Z79.82 Long term (current) use of aspirin; Z79.85 Long-term (current) use of injectable non-insulin antidiabetic drugs; Z79.51 Long term (current) use of inhaled steroids; Z79.899 Other long term (current) drug therapy; Z87.891 Personal history of nicotine dependence; Z86.010 Personal history of colon polyps; Z86.718 Personal history of other venous thrombosis and embolism; Z86.711 Personal history of pulmonary embolism; Z95.5 Presence of coronary angioplasty implant and graft; Z88.1 Allergy status to other antibiotic agents
CPT/HCPCS: 45378

== ENCOUNTER → 2024-07-21 | Outpatient (CLI) | payer MEDICARE, OTHER ==
[2024-07-21 15:16] LABS: ALT 23 U/L (8-44); AST 23 U/L (13-35); Albumin 4.4 g/dL (3.8-4.9); Albumin/Globulin Ratio 1.52 Ratio (1.60-3.17); Alkaline Phosphatase 101 U/L (41-126); Blood Urea Nitrogen 14.4 mg/dL (9.0-27.0); Calcium 9.6 mg/dL (8.7-10.3); Carbon Dioxide 22.9 mmol/L (21.6-31.8); Chloride 111 mmol/L (96-109); Chol/HDL Ratio 6.87 Ratio; Globulin 2.9 g/dL (1.6-3.3); Glucose 97 mg/dL (70-110); LDL Cholesterol,Calculated 221.2 mg/dL (0.0-131.0); Sodium 148 mmol/L (135-145); Total Bilirubin 0.4 mg/dL (0.3-1.2); Total Protein 7.3 g/dL (6.2-8.2)
[2024-07-21 15:44] LABS: HCT 45.5 % (37.2-46.3); HGB 15.2 g/dL (12.0-15.0); MCHC 33.4 g/dL (32.0-37.0); MCV 92.7 FL (80.0-97.0); Mean Platelet Volume 10.2 FL (9.5-12.2); NRBC Per 100 WBC 0 X 10*3/uL (0.00-0.01); Platelet Count 270 X 10*3/uL (140-440); RBC 4.91 X 10*6/uL (4.10-5.20); RDW 12.8 % (11.5-14.5); WBC 7.68 X 10*3/uL (4.50-10.00)
== END | disposition home or self-care (01) ==
LOC: LABWHC1 08:43
PROVIDERS: ATTEND Physician Assistant Medical
DX: E03.9 Hypothyroidism, unspecified (principal); E11.9 Type 2 diabetes mellitus without complications; K58.9 Irritable bowel syndrome, unspecified; E78.5 Hyperlipidemia, unspecified
CPT/HCPCS: 36415; 80053; 80061; 83036; 84443; 84480; 85027

== ENCOUNTER → 2024-11-28 | Outpatient (CLI) | payer MEDICARE, OTHER ==
[2024-11-28 15:14] LABS: HCT 43.3 % (37.2-46.3); HGB 14.4 g/dL (12.0-15.0); MCH 31.0 pg (27.0-32.0); MCHC 33.3 g/dL (32.0-37.0); MCV 93.1 FL (80.0-97.0); NRBC Per 100 WBC 0 X 10*3/uL (0.00-0.01); Platelet Count 239 X 10*3/uL (140-440); RBC 4.65 X 10*6/uL (4.10-5.20); RDW 12.1 % (11.5-14.5); WBC 6.51 X 10*3/uL (4.50-10.00)
[2024-11-28 15:17] LABS: ALT 50 U/L (8-44); AST 37 U/L (13-35); Albumin 4.2 g/dL (3.8-4.9); Albumin/Globulin Ratio 2.00 Ratio (1.60-3.17); Alkaline Phosphatase 98 U/L (41-126); Anion Gap 11.40 mmol/L (4.00-12.00); BUN/Creat Ratio 15.62 Ratio (12.00-20.00); Blood Urea Nitrogen 12.5 mg/dL (9.0-27.0); Calcium 9.5 mg/dL (8.7-10.3); Carbon Dioxide 23.6 mmol/L (21.6-31.8); Chloride 112 mmol/L (96-109); Globulin 2.1 g/dL (1.6-3.3); Glucose 87 mg/dL (70-110); Lipase 42 U/L (14-63); Potassium 4.1 mmol/L (3.5-5.5); Sodium 147 mmol/L (135-145); Total Protein 6.3 g/dL (6.2-8.2)
[2024-11-28 15:36] LABS: Hepatitis A Antibody IgM Nonreactive (Nonreactive); Hepatitis B Surface Antigen Nonreactive (Nonreactive); Hepatitis C IgG Antibody Nonreactive (Nonreactive)
== END | disposition home or self-care (01) ==
LOC: LABWHC1 09:39
PROVIDERS: ATTEND Family Medicine
DX: K52.9 Noninfective gastroenteritis and colitis, unspecified (principal)
CPT/HCPCS: 36415; 80053; 80074; 83690; 85027